=== PATIENT | female | born 1940 | race Caucasian/White ===

== ENCOUNTER 2021-01-07 10:39 | Inpatient (IN) | payer MEDICARE, OTHER, SELFPAY ==
[2021-01-07] VITALS (10 sets, daily range): BP systolic 140–219; BP diastolic 58–98; PULSE 76–87; RESP 13–19; TEMP 36.2–37.2; O2SAT 94–99; BMI 21.9
--- NOTE | ~2021-01-07 | IR_ITS ---
EXAMINATION: FLUOROSCOPY-GUIDED BIPEDICLE APPROACH T12 AND L2 KYPHOPLASTY CLINICAL INFORMATION: Acute back pain with loss of mobility and recumbent in the bed. Previous CT revealed L2 compression fracture. Present kyphoplasty CT revealed additional T12 acute fracture. COMPARISON: CT abdomen and pelvis exam 01/07/2021 TECHNIQUE: Following explaining fluoroscopy-guided T12 and L2 kyphoplasty procedure, benefits and risks, written consent was obtained from the patient. Patient was placed prone on fluoroscopy table and low back area was cleaned and draped in usual sterile manner. IV 2 g Kefzol was given intravenously. Patient was placed prone on fluoroscopy table and low back area was cleaned and draped in usual sterile manner. Right T12 pedicle was localized on the skin and 1% lidocaine was infiltrated. A 22-gauge spinal needle was inserted from the skin to the level of right pedicle and 0.25% Sensorcaine was injected. Through a small skin incision a 10-gauge Kyphon needle was inserted from the skin incision to the level of right pedicle and through the pedicle into posterior one-third of T12 vertebra. A second needle was advanced at a similar fashion through the left pedicle into the posterior one-third of T12 vertebra. A third and fourth needle was inserted through the right and left pedicles of L2 vertebra. A simple drill was advanced through the right and left pedicles of T12 vertebra and a tract created. A curette was then advanced through the right followed by left pedicle into the L2 vertebra and hard sclerotic bone was sliced. Subsequently high tensile balloons inserted through both needles at T12 and L2 vertebra and inflated to 150-200 psi for 5 minutes. These balloons were deflated initially at T12 vertebra and premixed polymethyl methacrylate was injected through the right and left pedicles under continuous AP and oblique fluoroscopy monitoring. Subsequently the L2 balloons were deflated and freshly prepared polymethyl methacrylate was injected through the right and left pedicles. After achieving adequate amount of cement in these 2 vertebrae, both needles were withdrawn and complete hemostasis achieved at puncture site. Sterile dressing applied postprocedure. Patient tolerated the procedure extremely well. IV conscious sedation was administered with Versed and fentanyl and patient monitored by the radiologist and IR nurse for 1 hour. FLUOROSCOPY TIME: 21.7 minutes. DOSE AREA PRODUCT: 964 mGy. FINDINGS: On preliminary imaging there is significant loss of T12 vertebral height approximately 50%. There is mild loss of T12 vertebral height. There is adequate amount of cement seen occupying the T12 and L2 vertebra. No extravasation of cement seen at this time. IR/IR kyphoplasty thoracic IMPRESSION: Successful fluoroscopy-guided bipedicle approach T12 and L2 kyphoplasty performed without immediate complications.
--- NOTE | ~2021-01-07 | CT_ITS ---
EXAMINATION: CT CHEST, ABDOMEN AND PELVIS WITHOUT CONTRAST. CLINICAL INFORMATION: Severe rib pain. COMPARISON: None TECHNIQUE: 5 mm thin axial and reformatted 3 mm thin sagittal and coronal images of chest, abdomen pelvis were obtained without contrast. DLP [id number] FINDINGS: CHEST: There is centrilobular emphysematous changes of both lungs with atelectatic changes in the right upper and lower lobes. Minimal atelectasis in the left lung base as well. There are small bilateral pleural effusions. The heart size is borderline normal. There is a small pericardial effusion seen. There is no mediastinal mass or lymphadenopathy. There are coronary artery calcifications. The central trachea and the bronchi widely patent. No abnormal axillary lymph nodes seen. There is dense soft tissue in the left breast on axial image 37/5. There is no thoracic spine fractures seen. There is mild degenerative changes and spondylosis mid dorsal spine. There is no visible rib fracture. ABDOMEN AND PELVIS: The liver is normal size, shape and density. No focal lesion or intrahepatic ductal dilatation seen. There are no radiopaque gallstones or wall thickening. Visualized spleen, atrophic pancreas and bilateral adrenal glands are unremarkable. There is atherosclerotic calcification of abdominal aorta and its branches but no aneurysm seen. There are no retroperitoneal lymph nodes or mass seen. Both kidneys are normal size and shape. There is 7 mm fatty hypodensity lower pole right kidney likely angiomyolipoma. There is a large amount of stool and gas seen throughout the colon likely severe constipation. Very little stool and gas is seen in the sigmoid colon and the rectum. A obstruction, spasm, stricture or lesion at the junction of descending and sigmoid colon cannot be excluded based on this exam. The small bowel loops are normal caliber. No free air or air-fluid levels seen. Appendix is not visualized. The cecum lies in the mid pelvis. There are scattered phleboliths in the pelvis. The bladder is mildly distended and shifted to the right of pelvis with calcifications likely vascular seen in the cervix the uterus is atrophied or surgically removed and not visualized. There is no free fluid in the pelvis. Bone windows reveal severe degenerative changes throughout lumbar spine. There is L2 compression fracture, likely acute with a small posterior bony component projecting into the anterior epidural space. Mild inferior endplate deformity is seen involving T12 vertebra. CT/CT abdomen pelvis wo con IMPRESSION: Bilateral small pleural effusions. Small pericardial effusion. There is atelectatic changes in the right upper lobe and right lower lobe and left lung base. Significant constipation with distended colon with stool and gas with a history of normal segment at the junction of descending sigmoid colon and the left abdomen. There is no visible mass however stricture, spasm or lesion cannot be excluded. Recommend a long rectal tube placement. There is no free fluid or free air seen. 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
--- NOTE | ~2021-01-07 | CT_ITS ---
EXAMINATION: CT LUMBAR SPINE CLINICAL INFORMATION: Post T12 and L2 kyphoplasty. COMPARISON: CT lumbar spine performed earlier today prior to kyphoplasty. TECHNIQUE: 2 mm thin axial and reformatted 2 mm thin sagittal and coronal images of lumbar spine were obtained without contrast. This CT examination was performed using dose optimization techniques as appropriate, variously including the following: *Automated exposure control *Adjustment of mA and/or kV according to patient size (this includes techniques or standardized protocols for targeted exams where dose is matched to indication/reason for exam; i.e. extremities or head) *Use of iterative reconstruction technique DLP: 289 mGy-cm FINDINGS: On sagittal reconstructed images there is adequate cement occupying the T12 compression fracture and L2 vertebra with moderate loss of vertebral height. No extravasation of cement seen at this time. Visualized L1, L4 vertebral heights are preserved. There is mild superior endplate deformity with sclerosis L3-L4 vertebra similar to previous study. No underlying disc bulge, herniation or spinal stenosis seen. There are bilateral small pleural effusions with underlying left lower lobe consolidation and right lower lobe atelectasis. CT/CT lumbar spine post vert IMPRESSION: Adequate amount of cement occupying the T12 and L2 compression fractures post kyphoplasty. There is no cement extravasation seen. Incidental bilateral small pleural effusions with left lower lobe consolidation and right lower lobe atelectasis/scarring. Results were conveyed by phone to Dr. Hubbard.
--- NOTE | ~2021-01-07 | CT_ITS ---
EXAMINATION: CT LUMBAR SPINE WITHOUT CONTRAST CLINICAL INFORMATION: Acute fracture L2 vertebra. COMPARISON: CT abdomen and pelvis 01/07/2021 TECHNIQUE: 2 mm thin axial and reformatted 2 mm thin sagittal and coronal images of thoracolumbar spine were obtained from inferior endplate of T11 through mid L4 vertebrae. This CT examination was performed using dose optimization techniques as appropriate, variously including the following: *Automated exposure control *Adjustment of mA and/or kV according to patient size (this includes techniques or standardized protocols for targeted exams where dose is matched to indication/reason for exam; i.e. extremities or head) *Use of iterative reconstruction technique DLP; 234 mGy-cm FINDINGS: On sagittal reconstructed images of thoracolumbar spine, there is interval mild compression deformity of T12 vertebra with posterior protrusion of bony project centrally into the anterior epidural space. There is lucency along upper thoracic vertebrae. The inferior endplate is deformed. The superior endplate is preserved. Also visualized is a known L2 compression fracture with approximately 50% loss of vertebral height with moderate size posterior bony component projecting into the anterior epidural space but no spinal canal stenosis seen. There are superior endplate changes along the L3 and L4 vertebrae. There are degenerative disc changes with vacuum disc phenomena L2-L3 and L3-L4 disc levels. There is moderate ventral spondylosis. No lytic process seen. There is minimal disc bulge at the L3-L4 disc level. The rest of the disc levels are unremarkable. The paravertebral soft tissues are normal. CT/CT lumbar spine wo con IMPRESSION: Known acute L2 compression fracture with approximately 50% loss of vertebral height. There is interval new compression fracture T11 vertebra with posterior bony component.
[2021-01-07 11:26] LABS: MANUAL DIFF FLAG NO
[2021-01-07 11:30] LABS: Basophils Percent Auto 0.3 % (0-2); Eosinophils Absolute Auto 0.2 X10*3/uL (0.0-0.4); Eosinophils Percent Auto 2.7 % (0-4); Hematocrit 29.6 % (37-47); Hemoglobin 9.6 g/dl (12.0-16.0); Imm Gran Abs Auto 0.03 X10*3/uL (0.00-0.03); Imm Gran Pct Auto 0.5 % (0.0-0.4); Lymphocytes Absolute Auto 0.8 X10*3/uL (1.2-4.9); Lymphocytes Percent Auto 12.3 % (20-40); Mean Corpuscular HGB Conc 32.4 g/dl (31.0-35.0); Mean Corpuscular Hemoglobin 27.9 pg (27.0-33.0); Mean Platelet Volume 8.3 fL (9.4-12.3); Monocytes Percent Auto 15.9 % (2-11); Neutrophils Absolute Auto 4.3 X10*3/uL (2.0-8.3); Neutrophils Percent Auto 68.3 % (45-73); Platelet Count 383 X10*3/uL (160-400); Red Blood Count 3.44 X10*6/uL (4.20-5.50); Red Cell Distribution Width 12.7 % (11.0-16.0); White Blood Count 6.2 X10*3/uL (4.8-10.8)
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
[2021-01-07] MEDS: Acetaminophen 325 MG TABLET 975 MG PO (11:45)
[2021-01-07] MEDS: traMADoL HCL 50 MG TABLET 25 MG PO (11:45)
[2021-01-07 12:01] LABS: COVID-19 Test Negative (Negative)
[2021-01-07 12:01] LABS: Anion Gap 14 (12-20); Blood Urea Nitrogen 16 mg/dL (9-16); Calcium 8.5 mg/dL (8.4-10.2); Carbon Dioxide 29 mmol/L (22-29); Chloride 88 mmol/L (96-108); Creatinine Clr Calc Pharmacy 41.7; Estimated Glomerular Filt Rate 59; Glucose Random 233 mg/dL (60-115); Potassium 5.6 mmol/L (3.3-5.1); Sodium 125 mmol/L (135-145)
--- NOTE | 2021-01-07 12:04 | PC.NURSE ---
Dary, boyfriend, cellphone [phone]
--- NOTE | 2021-01-07 13:09 | ECG_ITS ---
Test Reason : WEAKNESS Blood Pressure : / mmHG Vent. Rate : 081 BPM Atrial Rate : 081 BPM P-R Int : 194 ms QRS Dur : 074 ms QT Int : 378 ms P-R-T Axes : 065 070 028 degrees QTc Int : 439 ms Normal sinus rhythm Nonspecific ST abnormality Abnormal ECG When compared with ECG of 09-APR-2013 16:46, T wave amplitude has increased in Anterior leads Referred By: Dorita Salgado Electronically Signed By:OSBALDO ELDRIDGE
[2021-01-07] MEDS: Sodium Phosphate,Mono-Dibasic 133 ML ENEMA PR (13:16)
[2021-01-07] MEDS: 0.9 % Sodium Chloride 500 ML IV (13:17)
[2021-01-07] MEDS: fentaNYL citrate/PF 100 MCG/2 ML VIAL 25 MCG IVPUSH (13:27)
[2021-01-07 14:02] LABS: Glucose, Whole Blood 179 mg/dL (60-115)
[2021-01-07 15:57] LABS: Sodium 126 mmol/L (135-145)
[2021-01-07] MEDS: fentaNYL citrate/PF 100 MCG/2 ML VIAL 50 MCG IVPUSH (16:07)
[2021-01-07 16:29] LABS: Glucose, Whole Blood 173 mg/dL (60-115)
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
[2021-01-07] MEDS: Magnesium Hydrox/Alum Hydrox 30 ML ORAL.SUSP PO (17:14)
[2021-01-07] MEDS: Enoxaparin Sodium 40 MG/0.4 ML SYRINGE SUBCUT (17:14)
[2021-01-07] MEDS: Sodium Polystyrene Sulfon/Sorb 15 GM/60 ML ORAL.SUSP 30 GM PO (17:15)
[2021-01-07] MEDS: 0.9 % Sodium Chloride 1,000 ML 80 ML IVCONT (17:16)
[2021-01-07 19:26] LABS: Glucose Urine UA 100 MG/DL (NEG); Leukocyte Esterase Urine 3+ (NEG); Nitrite Urine NEG (NEG); Specific Gravity - Urine 1.015 (1.005-1.025); UACC Culture Trigger YES; Urine Blood 2+ (NEG); Urine Ketones NEG (NEG); Urine Protein TRACE MG/DL (NEG-TRACE)
[2021-01-07 19:29] LABS: Osmolality Urine 325 mosm/kg (373-1093)
[2021-01-07 19:31] LABS: Appearance Urine CLOUDY; Color Urine YELLOW
[2021-01-07 19:46] LABS: Bacteria Urine 3+ /LPF; Renal Epithelial Cells Urine TRACE /LPF; Squamous Epithelial Cell Urine TRACE /LPF; WBC Urine TNTC /HPF (0-4)
[2021-01-07] MEDS: Docusate Sodium 100 MG CAPSULE PO (21:43)
[2021-01-07] MEDS: Sennosides 8.6 MG TABLET 17.2 MG PO (21:43)
[2021-01-07] MEDS: ALPRAZolam 0.5 MG TABLET PO (21:44)
[2021-01-07] MEDS: Mirtazapine 7.5 MG TABLET PO (21:44)
[2021-01-07] MEDS: carvediloL 3.125 MG TABLET PO (21:44)
[2021-01-07 22:10] LABS: Glucose, Whole Blood 188 mg/dL (60-115)
[2021-01-07] MEDS: traMADoL HCL 50 MG TABLET PO (22:37)
[2021-01-07] MEDS: Latanoprost 0.005 % Ophth Sol 2.5 ML DROPS 1 DROP EYE-RIGHT (22:38)
[2021-01-07] MEDS: Artificial Tears 15 ML DROPS 2 DROP EYE-BOTH (22:38)
[2021-01-08] VITALS (10 sets, daily range): BP systolic 107–191; BP diastolic 59–92; PULSE 78–97; RESP 16–18; TEMP 36.3–36.6; O2SAT 92–99; BMI 21.9
[2021-01-08 03:46] LABS: Glucose, Whole Blood 202 mg/dL (60-115)
[2021-01-08] MEDS: Morphine Sulfate 4 MG/ML CARTRIDGE 2 MG IVPUSH (04:03)
[2021-01-08] MEDS: 0.9 % Sodium Chloride 1,000 ML 80 ML IVCONT (06:12)
[2021-01-08 06:37] LABS: INTERNATIONAL NORM RATIO 1.2 (0.9-1.1); Prothrombin Time 13.7 SEC (10.8-13.0)
[2021-01-08 06:38] LABS: Hematocrit 27.4 % (37-47); Hemoglobin 9.1 g/dl (12.0-16.0); Mean Corpuscular HGB Conc 33.2 g/dl (31.0-35.0); Mean Corpuscular Hemoglobin 28.5 pg (27.0-33.0); Mean Corpuscular Volume 85.9 fL (80-98); Mean Platelet Volume 8.6 fL (9.4-12.3); Platelet Count 365 X10*3/uL (160-400); Red Blood Count 3.19 X10*6/uL (4.20-5.50); Red Cell Distribution Width 12.5 % (11.0-16.0); White Blood Count 6.3 X10*3/uL (4.8-10.8)
[2021-01-08 06:40] LABS: Anion Gap 13 (12-20); Blood Urea Nitrogen 11 mg/dL (9-16); Carbon Dioxide 27 mmol/L (22-29); Chloride 91 mmol/L (96-108); Creatinine Clr Calc Pharmacy 52.5; Estimated Glomerular Filt Rate > 60; Glucose Random 217 mg/dL (60-115); Potassium 4.2 mmol/L (3.3-5.1); Sodium 127 mmol/L (135-145)
[2021-01-08 08:00] LABS: Glucose, Whole Blood 222 mg/dL (60-115)
[2021-01-08] MEDS: Docusate Sodium 100 MG CAPSULE PO ×2 (08:10→20:28)
[2021-01-08] MEDS: busPIRone HCl 5 MG TABLET PO ×2 (08:11→17:02)
[2021-01-08] MEDS: ALPRAZolam 0.5 MG TABLET PO ×3 (08:11→20:28)
[2021-01-08] MEDS: Losartan Potassium 50 MG TABLET 100 MG PO (08:12)
[2021-01-08] MEDS: Insulin Lispro 100 UNIT/ML 3 ML VIAL SUBCUT ×4 (08:12→20:27)
[2021-01-08] MEDS: carvediloL 3.125 MG TABLET PO ×2 (08:13→20:28)
[2021-01-08] MEDS: Insulin Glargine,Hum.rec.anlog 100 UNIT/ML 10 ML VIAL 7 UNIT SUBCUT (08:14)
[2021-01-08] MEDS: traMADoL HCL 50 MG TABLET PO ×2 (08:14→17:01)
[2021-01-08 09:44] LABS: Thyroid Stimulating Hormone 0.99 uIU/mL (0.32-4.0)
--- NOTE | 2021-01-08 10:52 | MHC.CM.PN ---
PATIENT LIVES WITH HER SIGNIFICANT OTHER, OLGA SHE HAS A WALKER, BUT FEELS IT IS TOO SMALL FOR HER NEEDS. PATIENT IS ACITVE WITH [employer], WHO IS OFFERING SUN GALSSES, TALKING CLOCK, TIMER, AUDIO TAPES, LARGE PRINT HOME PHONE, A NEW CANE AND WALKER. DUE TO COVID RESTRICTIONS, SOME OF THESE ITEMS HAVE NOT YET ARRIVED PATIENT ALSO HAS OPTHAMOLOGY APPOINTMENTS Q6W WITH [facility]. IMM DISCUSSED AND VERBAL COMPREHENSION RECEIVED. PATIENT ASKS THAT THIS HOSTESS HOST SIGN ON HER BEHALF. CONTACT CARD LEFT WITH IMM. 01/08 IMM IN CHART.
[2021-01-08 11:22] LABS: Glucose, Whole Blood 189 mg/dL (60-115)
[2021-01-08] MEDS: ALPRAZolam 0.25 MG TABLET PO (11:39)
[2021-01-08] MEDS: cefTRIAXone sodium 1 GM in 0.9 % Sodium Chloride 50 ML IV (11:40)
--- NOTE | 2021-01-08 13:32 | P.PNIM_ITS ---
Subjective Subjective Date of Service: 01/08/21 Interval History: the patient was seen and evaluated this morning Laying in bed, feels better than yesterday but still complaining of back pain requiring IV morphine Denies any fever, chills or shortness of breath No reported other overnight events. Systemic review: No fever, chills or weakness No chest pain, palpitation No shortness of breath or coughing No abdominal pain, nausea or vomiting No urinary symptoms No any rash or wounds Physical Exam Vital Signs: Vital Signs: Last Vital Signs Temp 97.3 F 01/08/21 11:28 Pulse 78 01/08/21 11:28 Resp 16 01/08/21 11:28 BP 141/59 H 01/08/21 11:28 Pulse Ox 94 01/08/21 11:28 Body Mass Index 21.9 Const: Other: Constitutional : Alert, oriented, in mild distress from pain and constipation Neck : Normal inspection, Supple Cardiovascular : RRR, S1 S2, no lower extremity edema Respiratory : Good bilateral air entry, no crackles, wheezes or rhonchi Gastrointestinal: soft, lax, Normal bowel sounds, mild generalized tenderness but no surgical signs Skin : Warm/Dry, left lower extremity heel dry ulcer with no drainage noted Neurological : Alert & oriented x3, No focal deficit Objective Data Current Medications Generic Name Dose Route Start Last Admin Trade Name Freq PRN Reason Stop Dose Admin Acetaminophen 650 mg 01/07/21 16:46 Acetaminophen 325 Mg Tablet PO Q6H PRN Pain (Scale Score 1-3) Acetaminophen 650 mg 01/07/21 16:46 Acetaminophen Supp 650 Mg Supp.Rect ME Q6H PRN Pain, Mild (Pain Scale 1-3) Alprazolam 0.25 mg 01/08/21 12:00 01/08/21 11:39 Alprazolam 0.25 Mg Tablet PO 0.25 mg DAILY@1200 NELIDA Administration Alprazolam 0.5 mg 01/07/21 17:00 01/08/21 08:11 Alprazolam 0.5 Mg Tablet PO 0.5 mg TID@0900,1700,2100 NELIDA Administration Artificial Tears 2 drop 01/07/21 16:46 01/07/21 22:38 Artificial Tears 15 Ml Drops EYE-BOTH 2 drop Q4H PRN Administration Dry Eyes Buspirone HCl 5 mg 01/07/21 17:00 01/08/21 08:11 Buspirone Hcl 5 Mg Tablet PO 5 mg BID@0900,1700 NELIDA Administration Carvedilol 3.125 mg 01/07/21 21:00 01/08/21 08:13 Carvedilol 3.125 Mg Tablet PO 3.125 mg BID NELIDA Administration Protocol Docusate Sodium 100 mg 01/07/21 21:00 01/08/21 08:10 Docusate Sodium 100 Mg Capsule PO 100 mg BID NELIDA Administration Ceftriaxone Sodium 1 gm/ 50 mls @ 100 mls/hr 01/08/21 12:00 01/08/21 12:12 Sodium Chloride IV Infused Q24H NELIDA Infusion Insulin Glargine 7 unit 01/08/21 09:00 01/08/21 08:14 Insulin Glargine,Hum.Rec.Anlog 100 Unit/Ml 10 Ml Vial SUBCUT 7 unit DAILY NELIDA Administration Insulin Human Lispro 0 unit 01/07/21 16:46 01/08/21 11:39 Insulin Lispro 100 Unit/Ml 3 Ml Vial SUBCUT 2 unit QIDACHS [facility] Administration Protocol Latanoprost 1 drop 01/07/21 21:00 01/07/21 22:38 Latanoprost 0.005 % Ophth Vilma 2.5 Ml Drops EYE-RIGHT 1 drop BEDTIME NELIDA Administration Losartan Potassium 100 mg 01/08/21 09:00 01/08/21 08:12 Losartan Potassium 50 Mg Tablet PO 100 mg DAILY NELIDA Administration Protocol Mirtazapine 7.5 mg 01/07/21 21:00 01/07/21 21:44 Mirtazapine 7.5 Mg Tablet PO 7.5 mg BEDTIME NELIDA Administration Morphine Sulfate 2 mg 01/07/21 16:34 01/08/21 04:03 Morphine Sulfate 4 Mg/Ml Cartridge IVPUSH 2 mg Q4H PRN Administration Pain, Severe (Pain Scale 7-10) Ondansetron HCl 4 mg 01/07/21 16:46 Ondansetron Hcl 4 Mg/2 Ml Vial IVPUSH Q8H PRN Nausea and Vomiting Pharmacy Consult 1 each 01/07/21 12:43 Consult Rx Perform Med Rec MISCELLANE ONCE PRN Consult order Senna 17.2 mg 01/07/21 21:00 01/07/21 21:43 Sennosides 8.6 Mg Tablet PO 17.2 mg BEDTIME NELIDA Administration Sodium Chloride 3 ml 01/08/21 00:00 01/08/21 07:12 0.9 % Sodium Chloride Flush 3 Ml Syringe IVFLUSH Not Given QSHIFT NELIDA Tramadol HCl 50 mg 01/07/21 16:46 01/08/21 08:14 Tramadol Hcl 50 Mg Tablet PO 50 mg Q8H PRN Administration Pain (Scale Score 4-6) Labs CBC & Chem 7: 01/08/21 05:59 01/08/21 05:58 Microbiology Microbiology Results: Microbiology 01/07/21 19:07 Urine clean catch - Clean Catch Midstream Urine Culture - Preliminary Gram negative olman Assessment and Plan (1) Compression fracture of L2: Status: Acute (2) Constipation: Status: Acute (3) Hyponatremia: Status: Acute (4) Hyperkalemia: Status: Acute (5) Diabetic foot ulcer: Status: Acute Assessment and Plan: A 80 years old lady with PMH of HTN, type 1 diabetes, glaucoma, macular degeneration, osteoporosis among others who presented to the hospital with worsening back and abdominal pain. L2 compression fracture Pain management secondary to osteoporosis CT scan showing finding as she reported Pain management Plan for kyphoplasty by IR tomorrow Hyponatremia Sodium of 127 Likely secondary to medications, decreased oral intake, possible SIADH urine electrolytes showing elevated sodium suggestive of possible SIADH DC IV fluids Water restriction Goal 134 by tomorrow Monitor BMP Hyperkalemia Resolved Diabetic foot ulcer Seems stable with no drainage Will need local care at discharge Constipation Secondary decreased activity and pain medications Continue GI regimen with MiraLax, Colace and senna Type 1 diabetes continue Lantus SSI DVT PPX Lovenox
[2021-01-08 16:48] LABS: Glucose, Whole Blood 291 mg/dL (60-115)
[2021-01-08] MEDS: 0.9 % Sodium Chloride Flush 3 ML SYRINGE IVFLUSH ×2 (17:00→20:29)
[2021-01-08] MEDS: amLODIPine Besylate 5 MG TABLET PO (17:01)
[2021-01-08 20:24] LABS: Glucose, Whole Blood 273 mg/dL (60-115)
[2021-01-08] MEDS: Mirtazapine 7.5 MG TABLET PO (20:28)
[2021-01-08] MEDS: Sennosides 8.6 MG TABLET 17.2 MG PO (20:28)
[2021-01-08] MEDS: Latanoprost 0.005 % Ophth Sol 2.5 ML DROPS 1 DROP EYE-RIGHT (21:28)
[2021-01-08] MEDS: Artificial Tears 15 ML DROPS 2 DROP EYE-BOTH (21:29)
[2021-01-09] VITALS (8 sets, daily range): BP systolic 120–189; BP diastolic 48–89; PULSE 86–98; RESP 16–18; TEMP 35.8–36.9; O2SAT 87–97
[2021-01-09 02:58] LABS: Glucose, Whole Blood 207 mg/dL (60-115)
[2021-01-09] MEDS: traMADoL HCL 50 MG TABLET PO ×2 (05:00→22:59)
[2021-01-09 07:08] LABS: Anion Gap 15 (12-20); Blood Urea Nitrogen 17 mg/dL (9-16); Carbon Dioxide 26 mmol/L (22-29); Chloride 89 mmol/L (96-108); Creatinine Clr Calc Pharmacy 45.6; Estimated Glomerular Filt Rate > 60; Glucose Random 264 mg/dL (60-115); Potassium 4.4 mmol/L (3.3-5.1); Sodium 126 mmol/L (135-145)
[2021-01-09 07:45] LABS: Glucose, Whole Blood 260 mg/dL (60-115)
[2021-01-09] MEDS: busPIRone HCl 5 MG TABLET PO ×2 (09:08→16:43)
[2021-01-09] MEDS: ALPRAZolam 0.5 MG TABLET PO ×3 (09:08→21:23)
[2021-01-09] MEDS: amLODIPine Besylate 5 MG TABLET 2.5 MG PO (09:08)
[2021-01-09] MEDS: carvediloL 3.125 MG TABLET PO ×2 (09:08→21:24)
[2021-01-09] MEDS: Losartan Potassium 50 MG TABLET 100 MG PO (09:09)
[2021-01-09] MEDS: 0.9 % Sodium Chloride Flush 3 ML SYRINGE IVFLUSH ×2 (09:09→16:48)
[2021-01-09 09:45] LABS: Anion Gap 17 (12-20); Blood Urea Nitrogen 16 mg/dL (9-16); Calcium 7.9 mg/dL (8.4-10.2); Carbon Dioxide 26 mmol/L (22-29); Chloride 89 mmol/L (96-108); Creatinine Clr Calc Pharmacy 45.6; Estimated Glomerular Filt Rate > 60; Glucose Random 296 mg/dL (60-115); Potassium 4.4 mmol/L (3.3-5.1); Sodium 128 mmol/L (135-145)
--- NOTE | 2021-01-09 09:53 | P.PNIM_ITS ---
Subjective Subjective Date of Service: 01/09/21 Interval History: the patient was seen and evaluated this morning Laying in bed, feels better overall, mildly confused, refusing the Kyphoplasty Denies any fever, chills or shortness of breath No reported other overnight events. Systemic review: No fever, chills or weakness No chest pain, palpitation No shortness of breath or coughing No abdominal pain, nausea or vomiting No urinary symptoms No any rash or wounds Physical Exam Vital Signs: Vital Signs: Last Vital Signs Temp 96.7 F L 01/09/21 08:26 Pulse 88 01/09/21 08:26 Resp 16 01/09/21 07:50 BP 183/89 H 01/09/21 08:26 Pulse Ox 87 L 01/09/21 08:26 Body Mass Index 21.9 Const: Other: Constitutional : Alert, oriented to self but otherwise confused, anxious, in mild distress from the procedure Neck : Normal inspection, Supple Cardiovascular : RRR, S1 S2, no lower extremity edema Respiratory : Good bilateral air entry, no crackles, wheezes or rhonchi Gastrointestinal: soft, lax, Normal bowel sounds, mild generalized tenderness but no surgical signs Skin : Warm/Dry, left lower extremity heel dry ulcer with no drainage noted Neurological : Alert & oriented to self, No focal deficit Objective Data Current Medications Generic Name Dose Route Start Last Admin Trade Name Freq PRN Reason Stop Dose Admin Acetaminophen 650 mg 01/07/21 16:46 Acetaminophen 325 Mg Tablet PO Q6H PRN Pain (Scale Score 1-3) Acetaminophen 650 mg 01/07/21 16:46 Acetaminophen Supp 650 Mg Supp.Rect CA Q6H PRN Pain, Mild (Pain Scale 1-3) Alprazolam 0.25 mg 01/08/21 12:00 01/08/21 11:39 Alprazolam 0.25 Mg Tablet PO 0.25 mg DAILY@1200 NELIDA Administration Alprazolam 0.5 mg 01/07/21 17:00 01/09/21 09:08 Alprazolam 0.5 Mg Tablet PO 0.5 mg TID@0900,1700,2100 NELIDA Administration Amlodipine Besylate 2.5 mg 01/09/21 09:00 01/09/21 09:08 Amlodipine Besylate 5 Mg Tablet PO 2.5 mg DAILY NELIDA Administration Protocol Artificial Tears 2 drop 01/07/21 16:46 01/08/21 21:29 Artificial Tears 15 Ml Drops EYE-BOTH 2 drop Q4H PRN Administration Dry Eyes Buspirone HCl 5 mg 01/07/21 17:00 01/09/21 09:08 Buspirone Hcl 5 Mg Tablet PO 5 mg BID@0900,1700 [facility] Administration Carvedilol 3.125 mg 01/07/21 21:00 01/09/21 09:08 Carvedilol 3.125 Mg Tablet PO 3.125 mg BID [facility] Administration Protocol Docusate Sodium 100 mg 01/07/21 21:00 01/09/21 09:09 Docusate Sodium 100 Mg Capsule PO Not Given BID [facility] Ceftriaxone Sodium 1 gm/ 50 mls @ 100 mls/hr 01/08/21 12:00 01/08/21 12:12 Sodium Chloride IV Infused Q24H [facility] Infusion Insulin Glargine 7 unit 01/08/21 09:00 01/09/21 09:09 Insulin Glargine,Hum.Rec.Anlog 100 Unit/Ml 10 Ml Vial SUBCUT Not Given DAILY [facility] Insulin Human Lispro 0 unit 01/07/21 16:46 01/09/21 09:09 Insulin Lispro 100 Unit/Ml 3 Ml Vial SUBCUT Not Given QIDACHS [facility] Protocol Latanoprost 1 drop 01/07/21 21:00 01/08/21 21:28 Latanoprost 0.005 % Ophth Vilma 2.5 Ml Drops EYE-RIGHT 1 drop BEDTIME [facility] Administration Losartan Potassium 100 mg 01/08/21 09:00 01/09/21 09:09 Losartan Potassium 50 Mg Tablet PO 100 mg DAILY [facility] Administration Protocol Mirtazapine 7.5 mg 01/07/21 21:00 01/08/21 20:28 Mirtazapine 7.5 Mg Tablet PO 7.5 mg BEDTIME [facility] Administration Morphine Sulfate 2 mg 01/07/21 16:34 01/08/21 04:03 Morphine Sulfate 4 Mg/Ml Cartridge IVPUSH 2 mg Q4H PRN Administration Pain, Severe (Pain Scale 7-10) Ondansetron HCl 4 mg 01/07/21 16:46 Ondansetron Hcl 4 Mg/2 Ml Vial IVPUSH Q8H PRN Nausea and Vomiting Pharmacy Consult 1 each 01/07/21 12:43 Consult Rx Perform Med Rec MISCELLANE ONCE PRN Consult order Senna 17.2 mg 01/07/21 21:00 01/08/21 20:28 Sennosides 8.6 Mg Tablet PO 17.2 mg BEDTIME NELIDA Administration Sodium Chloride 3 ml 01/08/21 00:00 01/09/21 09:09 0.9 % Sodium Chloride Flush 3 Ml Syringe IVFLUSH 3 ml QSHIFT NELIDA Administration Tramadol HCl 50 mg 01/07/21 16:46 01/09/21 05:00 Tramadol Hcl 50 Mg Tablet PO 50 mg Q8H PRN Administration Pain (Scale Score 4-6) Labs CBC & Chem 7: 01/08/21 05:59 01/09/21 08:53 Microbiology Microbiology Results: Microbiology 01/07/21 19:07 Urine clean catch - Clean Catch Midstream Urine Culture - Final Escherichia coli Assessment and Plan (1) Compression fracture of L2: Status: Acute (2) Constipation: Status: Acute (3) Hyponatremia: Status: Acute (4) Hyperkalemia: Status: Acute (5) Diabetic foot ulcer: Status: Acute Assessment and Plan: A 80 years old lady with PMH of HTN, type 1 diabetes, glaucoma, macular degeneration, osteoporosis among others who presented to the hospital with worsening back and abdominal pain. L2 compression fracture Pain management secondary to osteoporosis CT sc you were an showing finding of L2 compression fracture Pain management; DC morphine, to use Oxycodone as needed Patient this morning declined kyphoplasty, to rediscuss with her and the family the and maybe planned for Tuesday otherwise can be discharged with home therapy and pain medications Hyponatremia Sodium of 128 urine electrolytes showing elevated sodium suggestive of possible SIADH Water restriction To give a dose of urea today Monitor BMP Toxic Metabolic encephalopathy Likely secondary to hyponatremia, narcotics and hospital stay To correct electrolytes, decrease narcotics and recurrent reorientation Avoid medications that might affect her mind Hyperkalemia Resolved Diabetic foot ulcer Seems stable with no drainage Will need local care at discharge Constipation Secondary decreased activity and pain medications Continue GI regimen with MiraLax, Colace and senna Type 1 diabetes continue Lantus SSI DVT PPX Lovenox
--- NOTE | 2021-01-09 10:46 | P.CONNP_ITS ---
History of Present Illness Reason for Consult Consult date: 01/09/21 Reason for consult: Hyponatremia Requesting physician: Mignon Hubbard Chief Complaint Chief complaint: L2#, Hyponatremia History of Present Illness Narrative: 80 years old lady with PMH of HTN, type 1 diabetes, glaucoma, macular degeneration, osteoporosis among others who presented to the hospital with worsening back and abdominal pain. The patient's reported starting physical therapy almost 3 weeks ago and felt mildly better but during the next week she felt back pain after a neighbor helped her of her bed. Evaluated by her primary seems like who did an MRI showing L2 fracture. Kyphoplasty was suggested as part of treatment but she refused. Her pain did not improve over the last 2 weeks and continue to get worse . when it was associated with abdominal pain with no nausea, vomiting, diarrhea or urinary symptoms. Further evaluation found her to have hyponatremia which is worse today. Nephrology has been consulted to assist in her clinical care. Review of Systems Review of Systems Yes all other systems are reviewed and are negative PMF Past Medical History Medical History Diabetes Glaucoma Lumbar compression fracture Macular degeneration Neuropathy Osteopenia Osteoporosis Prolapsed bladder Toe amputee Social History Social History Household Members: Significant Other Housing: Condominium Do you presently have visiting nurse or other home services: No Alcohol intake: never Smoking Status: Never smoker Smoked in Last 30 Days: No Second Hand Smoke Exposure: No Use of substances other than those prescribed or required for medical reasons: No Currently Displaying Signs/Symptoms of Drug Intoxication Withdrawal: No Any prior treatment program specific to substance use: No Have you been hit, kicked, punched, or otherwise hurt by someone within the past year? If so, by whom?: No Do you feel safe in your current relationship?: Yes Is there a partner from a previous relationship who is making you feel unsafe now?: No Are you made to feel afraid or neglected: No Advance Directives: No Advance Directives Information Provided: No Advance Directives on File: No Do you have thoughts of harming others: None Do you have a plan to hurt others: No Plan Recently lost weight without trying: No service: No Current occupational status: disabled Meds Allergies Allergy/AdvReac Type Severity Reaction Status Date / Time citalopram [Celexa] Allergy Unknown Unknown Verified 01/07/21 11:05 codeine [Codeine] Allergy Unknown ABLE TO Verified 01/07/21 16:26 TAKE IN VERY SMALL AMOUNTS, DIZZY WITH LARGE AMTS doxycycline Allergy Unknown Unknown Verified 01/07/21 11:05 Codeine Allergy Unknown Unknown Uncoded 01/07/21 11:05 Codeine Phosphate Allergy Unknown Unknown Uncoded 01/07/21 11:05 Doxycycline Hyclate Allergy Unknown Unknown Uncoded 01/07/21 11:05 novolin n Allergy Unknown Unknown Uncoded 01/07/21 11:05 Active Medications: Current Medications Generic Name Dose Route Start Last Admin Trade Name Freq PRN Reason Stop Dose Admin Acetaminophen 650 mg 01/07/21 16:46 Acetaminophen 325 Mg Tablet PO Q6H PRN Pain (Scale Score 1-3) Acetaminophen 650 mg 01/07/21 16:46 Acetaminophen Supp 650 Mg Supp.Rect MO Q6H PRN Pain, Mild (Pain Scale 1-3) Acetaminophen 650 mg 01/09/21 10:40 Acetaminophen 325 Mg Tablet PO QSHIFT [facility] Alprazolam 0.25 mg 01/08/21 12:00 01/08/21 11:39 Alprazolam 0.25 Mg Tablet PO 0.25 mg DAILY@1200 [facility] Administration Alprazolam 0.5 mg 01/07/21 17:00 01/09/21 09:08 Alprazolam 0.5 Mg Tablet PO 0.5 mg TID@0900,1700,2100 [facility] Administration Amlodipine Besylate 2.5 mg 01/09/21 09:00 01/09/21 09:08 Amlodipine Besylate 5 Mg Tablet PO 2.5 mg DAILY [facility] Administration Protocol Artificial Tears 2 drop 01/07/21 16:46 01/08/21 21:29 Artificial Tears 15 Ml Drops EYE-BOTH 2 drop Q4H PRN Administration Dry Eyes Buspirone HCl 5 mg 01/07/21 17:00 01/09/21 09:08 Buspirone Hcl 5 Mg Tablet PO 5 mg BID@0900,1700 [facility] Administration Carvedilol 3.125 mg 01/07/21 21:00 01/09/21 09:08 Carvedilol 3.125 Mg Tablet PO 3.125 mg BID [facility] Administration Protocol Docusate Sodium 100 mg 01/07/21 21:00 01/09/21 09:09 Docusate Sodium 100 Mg Capsule PO Not Given BID [facility] Ceftriaxone Sodium 1 gm/ 50 mls @ 100 mls/hr 01/08/21 12:00 01/08/21 12:12 Sodium Chloride IV Infused Q24H [facility] Infusion Insulin Glargine 7 unit 01/08/21 09:00 01/09/21 09:09 Insulin Glargine,Hum.Rec.Anlog 100 Unit/Ml 10 Ml Vial SUBCUT Not Given DAILY [facility] Insulin Human Lispro 0 unit 01/07/21 16:46 01/09/21 09:09 Insulin Lispro 100 Unit/Ml 3 Ml Vial SUBCUT Not Given QIDACHS [facility] Protocol Latanoprost 1 drop 01/07/21 21:00 01/08/21 21:28 Latanoprost 0.005 % Ophth Vilma 2.5 Ml Drops EYE-RIGHT 1 drop BEDTIME [facility] Administration Losartan Potassium 100 mg 01/08/21 09:00 01/09/21 09:09 Losartan Potassium 50 Mg Tablet PO 100 mg DAILY [facility] Administration Protocol Mirtazapine 7.5 mg 01/07/21 21:00 01/08/21 20:28 Mirtazapine 7.5 Mg Tablet PO 7.5 mg BEDTIME [facility] Administration Ondansetron HCl 4 mg 01/07/21 16:46 Ondansetron Hcl 4 Mg/2 Ml Vial IVPUSH Q8H PRN Nausea and Vomiting Oxycodone HCl 2.5 mg 01/09/21 10:38 Oxycodone Hcl Immed Release 5 Mg Tablet PO Q6H PRN Pain, Severe (Pain Scale 7-10) Pharmacy Consult 1 each 01/07/21 12:43 Consult Rx Perform Med Rec MISCELLANE ONCE PRN Consult order Senna 17.2 mg 01/07/21 21:00 01/08/21 20:28 Sennosides 8.6 Mg Tablet PO 17.2 mg BEDTIME [facility] Administration Sodium Chloride 3 ml 01/08/21 00:00 01/09/21 09:09 0.9 % Sodium Chloride Flush 3 Ml Syringe IVFLUSH 3 ml QSHIFT [facility] Administration Tramadol HCl 50 mg 01/07/21 16:46 01/09/21 05:00 Tramadol Hcl 50 Mg Tablet PO 50 mg Q8H PRN Administration Pain (Scale Score 4-6) Home Medications Medication Instructions Recorded Confirmed Last Taken Type acetaminophen 650 mg PO Q6H PRN 01/07/21 01/07/21 Unknown History alprazolam 0.25 mg PO DAILY@1200 01/07/21 01/07/21 01/06/21 History alprazolam 0.5 mg PO TID@0900,1700,2100 01/07/21 01/07/21 01/07/21 History aspirin 81 mg PO DAILY 01/07/21 01/07/21 01/07/21 History bupropion HCl 100 mg PO DAILY 01/07/21 01/07/21 01/07/21 History buspirone 5 mg PO BID@0900,1700 01/07/21 01/07/21 01/07/21 History carboxymethylcellulose sodium 1 drp OPHTHALMIC (EYE) Q4H PRN 01/07/21 01/07/21 Unknown History [Refresh Tears] carvedilol 3.125 tab PO BID@0900,1700 01/07/21 01/07/21 01/07/21 History diclofenac sodium 4 g TOPICAL QID PRN 01/07/21 01/07/21 Unknown History insulin aspart U-100 [Novolog See Protocol SUBCUT TIDAC 01/07/21 01/07/21 01/07/21 History U-100 Insulin aspart] insulin detemir U-100 [Levemir 5 unit SUBCUT BEDTIME 01/07/21 01/07/21 01/06/21 History U-100 Insulin] insulin detemir U-100 [Levemir 7 unit SUBCUT DAILY 01/07/21 01/07/21 01/07/21 History U-100 Insulin] latanoprost [Xelpros] 1 drp OPHTHALMIC-RIGHT BEDTIME 01/07/21 01/07/21 01/06/21 History losartan 100 mg PO DAILY 01/07/21 01/07/21 01/07/21 History mirtazapine 7.5 mg PO BEDTIME 01/07/21 01/07/21 01/06/21 History omega 9-bcb-hap-fish oil [Fish Oil] 1 cap PO Q2D@0900 01/07/21 01/07/21 01/07/21 History rosuvastatin 5 mg PO Q2D@0900 01/07/21 01/07/21 01/07/21 History tramadol 50 mg PO Q8H PRN 01/07/21 01/07/21 Unknown History Physical Exam Vital Signs: Last Vital Signs Temp 96.7 F L 01/09/21 08:26 Pulse 88 01/09/21 08:26 Resp 16 01/09/21 07:50 BP 183/89 H 01/09/21 08:26 Pulse Ox 87 L 01/09/21 08:26 Body Mass Index 21.9 Const General: No acute distress Eyes EOM: EOMs intact bilaterally Neck Neck: Yes supple Resp Auscultation: diminished lung sounds Cardio Jugular venous distension: no JVD GI Palpation (GI): Soft to palpation Neuro General: moves all extremities Results Lab Results Result Diagrams: 01/08/21 05:59 01/09/21 08:53 Lab results: Chemistry 01/07/21 01/07/21 01/08/21 11:21 15:26 05:58 Sodium 125 L 126 L 127 L Potassium 5.6 H 4.2 D Carbon Dioxide 29 27 BUN 16 11 Creatinine 0.92 0.73 Calcium 8.5 8.0 L 01/09/21 01/09/21 06:11 08:53 Sodium 126 L 128 L Potassium 4.4 4.4 Carbon Dioxide 26 26 BUN 17 H D 16 Creatinine 0.84 0.84 Calcium 8.0 L 7.9 L Hematology 01/07/21 01/08/21 11:21 05:59 WBC 6.2 6.3 Hgb 9.6 L 9.1 L Plt Count 383 365 Urinalysis 01/07/21 19:07 Urine Color YELLOW Urine Appearance CLOUDY Urine pH 7.0 Ur Specific [place] 1.015 Urine Protein TRACE Urine Glucose (UA) 100 H Urine Ketones NEG Urine Blood 2+ H Urine Nitrite NEG Ur Leukocyte Esterase 3+ H Urine RBC 10-14 H Urine WBC TNTC H Ur Squamous Epith Cells TRACE Urine Studies 01/07/21 19:07 Urine Osmolality 325 L Assessment and Plan (1) Hyponatremia: Problem details: Known to have hyponatremia for some time Clearly has excess ADH Sodium had been labile with fluid restriction at home It gotten worse with pain and fluids she got Currently on fluid restriction Shall give one dose of PO Urea 30 Gram today Labs AM. Shall arrange outpt follow up with me when D/Gurpreet Status: Acute
[2021-01-09 11:26] LABS: Glucose, Whole Blood 287 mg/dL (60-115)
[2021-01-09] MEDS: ALPRAZolam 0.25 MG TABLET PO (11:51)
[2021-01-09] MEDS: Urea 15 GM POWDER 30 GM PO (11:54)
[2021-01-09] MEDS: cefTRIAXone sodium 1 GM in 0.9 % Sodium Chloride 50 ML IV (11:55)
[2021-01-09] MEDS: Insulin Lispro 100 UNIT/ML 3 ML VIAL SUBCUT ×3 (11:55→20:32)
--- NOTE | 2021-01-09 12:30 | MHC.CM.PN ---
PER PHYSICIAN ROUNDS, PATIENT IS NOT WILLING TO HAVE KYPHOPLASTY PROCEDURE PLAN IS TO REMAIN AT LEAST ONE MORE DAY. IF PATIENT CHANGES HER MIND AND AGREES TO THE PROCEDURE, SHE WILL STAY THE WEEKEND AND PLAN WILL BE FOR TUESDAY PROCEDURE. CASE MANAGEMENT AVAILABLE IF NEEDED.
[2021-01-09 16:31] LABS: Glucose, Whole Blood 382 mg/dL (60-115)
[2021-01-09] MEDS: Acetaminophen 325 MG TABLET 650 MG PO (16:43)
[2021-01-09 20:08] LABS: Glucose, Whole Blood 311 mg/dL (60-115)
[2021-01-09] MEDS: Mirtazapine 7.5 MG TABLET PO (21:22)
[2021-01-09] MEDS: Sennosides 8.6 MG TABLET 17.2 MG PO (21:23)
[2021-01-09] MEDS: Artificial Tears 15 ML DROPS 2 DROP EYE-BOTH (21:31)
[2021-01-10] VITALS (8 sets, daily range): BP systolic 98–165; BP diastolic 42–70; PULSE 78–101; RESP 16–20; TEMP 35.5–36.7; O2SAT 87–96
[2021-01-10] MEDS: 0.9 % Sodium Chloride Flush 3 ML SYRINGE IVFLUSH ×4 (00:35→21:15)
[2021-01-10 07:13] LABS: Glucose, Whole Blood 111 mg/dL (60-115)
[2021-01-10 07:26] LABS: Glucose, Whole Blood 303 mg/dL (60-115)
[2021-01-10 08:00] LABS: Anion Gap 17 (12-20); Blood Urea Nitrogen 42 mg/dL (9-16); Calcium 8.4 mg/dL (8.4-10.2); Carbon Dioxide 25 mmol/L (22-29); Chloride 92 mmol/L (96-108); Creatinine Clr Calc Pharmacy 45.1; Estimated Glomerular Filt Rate > 60; Glucose Random 308 mg/dL (60-115); Potassium 4.5 mmol/L (3.3-5.1); Sodium 129 mmol/L (135-145)
[2021-01-10] MEDS: Insulin Lispro 100 UNIT/ML 3 ML VIAL SUBCUT ×4 (08:08→21:13)
[2021-01-10] MEDS: ALPRAZolam 0.5 MG TABLET PO ×3 (08:09→21:14)
[2021-01-10] MEDS: amLODIPine Besylate 5 MG TABLET 2.5 MG PO (08:10)
[2021-01-10] MEDS: busPIRone HCl 5 MG TABLET PO ×2 (08:10→17:17)
[2021-01-10] MEDS: Docusate Sodium 100 MG CAPSULE PO ×2 (08:10→21:14)
[2021-01-10] MEDS: Losartan Potassium 50 MG TABLET 100 MG PO (08:10)
[2021-01-10] MEDS: carvediloL 3.125 MG TABLET PO ×2 (08:11→21:14)
[2021-01-10] MEDS: traMADoL HCL 50 MG TABLET PO ×2 (08:16→17:17)
[2021-01-10] MEDS: Insulin Glargine,Hum.rec.anlog 100 UNIT/ML 10 ML VIAL 7 UNIT SUBCUT ×2 (09:44→21:12)
--- NOTE | 2021-01-10 10:00 | PM.PNNEP ---
Subjective Subjective Date of Service: 01/10/21 Interval history: seen and examined No reported other overnight events No fever, chills or weakness No chest pain, palpitation No shortness of breath or coughing No abdominal pain, nausea or vomiting Physical Exam Vital Signs: Vital Signs: Last Vital Signs Temp 96 F L 01/10/21 07:12 Pulse 84 01/10/21 07:12 Resp 20 01/10/21 07:12 BP 160/70 H 01/10/21 07:12 Pulse Ox 96 01/10/21 07:12 Body Mass Index 21.9 Const: Other: Constitutional : Alert, oriented to self but otherwise confused General: No acute distress Eyes: EOM: EOMs intact bilaterally Neck: Neck: Yes supple Resp: Auscultation: diminished lung sounds Cardio: Jugular venous distension: no JVD GI: Palpation (GI): Soft to palpation Neuro: General: moves all extremities Objective Data Labs CBC & Chem 7: 01/08/21 05:59 01/10/21 06:58 Labs: Laboratory Results - last 24 hr 01/09/21 01/09/21 01/09/21 11:20 16:21 20:04 Sodium Potassium Chloride Carbon Dioxide Anion Gap BUN Creatinine Estim Creat Clear Calc Estimated GFR POC Glucose 287 H 382 H* 311 H Random Glucose Calcium 01/09/21 01/10/21 01/10/21 22:49 06:58 07:13 Sodium 129 L Potassium 4.5 Chloride 92 L Carbon Dioxide 25 Anion Gap 17 BUN 42 H D Creatinine 0.85 Estim Creat Clear Calc 45.1 Estimated GFR > 60 POC Glucose 111 303 H Random Glucose 308 H Calcium 8.4 D Microbiology Microbiology Results: Microbiology 01/07/21 19:07 Urine clean catch - Clean Catch Midstream Urine Culture - Final Escherichia coli Assessment & Plan Assessment and plan (1) Hyponatremia: Problem details: sodium better history of hyponatremia elevated urine sodium suggestive of SIADH REC Fluid restriction Urea 15 gram daily Follow electrolytes Status: Acute Time Spent With Patient Time: Total time spent is greater than 50% in coordination of care (as documented) at patient's floor/unit and/or counseling patient:
[2021-01-10 11:10] LABS: Glucose, Whole Blood 339 mg/dL (60-115)
--- NOTE | 2021-01-10 11:18 | P.PNIM_ITS ---
Subjective Subjective Date of Service: 01/10/21 Interval History: the patient was seen and evaluated this morning Laying in bed, feels better overall, mildly confused, refusing the Kyphoplasty Denies any fever, chills or shortness of breath No reported other overnight events. Systemic review: No fever, chills or weakness No chest pain, palpitation No shortness of breath or coughing No abdominal pain, nausea or vomiting No urinary symptoms No any rash or wounds Physical Exam Vital Signs: Vital Signs: Last Vital Signs Temp 96 F L 01/10/21 07:12 Pulse 84 01/10/21 07:12 Resp 20 01/10/21 07:12 BP 160/70 H 01/10/21 07:12 Pulse Ox 96 01/10/21 07:12 Body Mass Index 21.9 Const: Other: Constitutional : Alert, oriented to self but otherwise confused, anxious, in mild distress from the procedure Neck : Normal inspection, Supple Cardiovascular : RRR, S1 S2, no lower extremity edema Respiratory : Good bilateral air entry, no crackles, wheezes or rhonchi Gastrointestinal: soft, lax, Normal bowel sounds, mild generalized tenderness but no surgical signs Skin : Warm/Dry, left lower extremity heel dry ulcer with no drainage noted Neurological : Alert & oriented to self, No focal deficit Objective Data Current Medications Generic Name Dose Route Start Last Admin Trade Name Freq PRN Reason Stop Dose Admin Acetaminophen 650 mg 01/07/21 16:46 Acetaminophen 325 Mg Tablet PO Q6H PRN Pain (Scale Score 1-3) Acetaminophen 650 mg 01/07/21 16:46 Acetaminophen Supp 650 Mg Supp.Rect CO Q6H PRN Pain, Mild (Pain Scale 1-3) Acetaminophen 650 mg 01/09/21 10:40 01/10/21 08:20 Acetaminophen 325 Mg Tablet PO Not Given QSHIFT [facility] Alprazolam 0.25 mg 01/08/21 12:00 01/09/21 11:51 Alprazolam 0.25 Mg Tablet PO 0.25 mg DAILY@1200 [facility] Administration Alprazolam 0.5 mg 01/07/21 17:00 01/10/21 08:09 Alprazolam 0.5 Mg Tablet PO 0.5 mg TID@0900,1700,2100 [facility] Administration Amlodipine Besylate 2.5 mg 01/09/21 09:00 01/10/21 08:10 Amlodipine Besylate 5 Mg Tablet PO 2.5 mg DAILY [facility] Administration Protocol Artificial Tears 2 drop 01/07/21 16:46 01/09/21 21:31 Artificial Tears 15 Ml Drops EYE-BOTH 2 drop Q4H PRN Administration Dry Eyes Buspirone HCl 5 mg 01/07/21 17:00 01/10/21 08:10 Buspirone Hcl 5 Mg Tablet PO 5 mg BID@0900,1700 [facility] Administration Carvedilol 3.125 mg 01/07/21 21:00 01/10/21 08:11 Carvedilol 3.125 Mg Tablet PO 3.125 mg BID [facility] Administration Protocol Docusate Sodium 100 mg 01/07/21 21:00 01/10/21 08:10 Docusate Sodium 100 Mg Capsule PO 100 mg BID [facility] Administration Ceftriaxone Sodium 1 gm/ 50 mls @ 100 mls/hr 01/08/21 12:00 01/09/21 12:40 Sodium Chloride IV Infused Q24H [facility] Infusion Insulin Glargine 7 unit 01/08/21 09:00 01/10/21 09:44 Insulin Glargine,Hum.Rec.Anlog 100 Unit/Ml 10 Ml Vial SUBCUT 7 unit DAILY [facility] Administration Insulin Human Lispro 0 unit 01/07/21 16:46 01/10/21 08:08 Insulin Lispro 100 Unit/Ml 3 Ml Vial SUBCUT 8 unit QIDACHS [facility] Administration Protocol Latanoprost 1 drop 01/07/21 21:00 01/09/21 21:45 Latanoprost 0.005 % Ophth Vilma 2.5 Ml Drops EYE-RIGHT Not Given BEDTIME [facility] Losartan Potassium 100 mg 01/08/21 09:00 01/10/21 08:10 Losartan Potassium 50 Mg Tablet PO 100 mg DAILY [facility] Administration Protocol Mirtazapine 7.5 mg 01/07/21 21:00 01/09/21 21:22 Mirtazapine 7.5 Mg Tablet PO 7.5 mg BEDTIME [facility] Administration Ondansetron HCl 4 mg 01/07/21 16:46 Ondansetron Hcl 4 Mg/2 Ml Vial IVPUSH Q8H PRN Nausea and Vomiting Oxycodone HCl 2.5 mg 01/09/21 10:38 Oxycodone Hcl Immed Release 5 Mg Tablet PO Q6H PRN Pain, Severe (Pain Scale 7-10) Pharmacy Consult 1 each 01/07/21 12:43 Consult Rx Perform Med Rec MISCELLANE ONCE PRN Consult order Senna 17.2 mg 01/07/21 21:00 01/09/21 21:23 Sennosides 8.6 Mg Tablet PO 17.2 mg BEDTIME [facility] Administration Sodium Chloride 3 ml 01/08/21 00:00 01/10/21 08:12 0.9 % Sodium Chloride Flush 3 Ml Syringe IVFLUSH 3 ml QSHIFT [facility] Administration Tramadol HCl 50 mg 01/07/21 16:46 01/10/21 08:16 Tramadol Hcl 50 Mg Tablet PO 50 mg Q8H PRN Administration Pain (Scale Score 4-6) Labs CBC & Chem 7: 01/08/21 05:59 01/10/21 06:58 Microbiology Microbiology Results: Microbiology 01/07/21 19:07 Urine clean catch - Clean Catch Midstream Urine Culture - Final Escherichia coli Assessment and Plan (1) Hyponatremia: Status: Acute (2) Compression fracture of L2: Status: Acute (3) Diabetic foot ulcer: Status: Acute (4) Constipation: Status: Acute Assessment and Plan: A 80 years old lady with PMH of HTN, type 1 diabetes, glaucoma, macular degeneration, osteoporosis among others who presented to the hospital with worsening back and abdominal pain. L2 compression fracture Pain management secondary to osteoporosis CT sc you were an showing finding of L2 compression fracture Pain management; DC morphine, to use Oxycodone as needed Patient this morning declined kyphoplasty, to rediscuss with her and the family the and maybe planned for Tuesday otherwise can be discharged with home therapy and pain medications Hyponatremia Sodium of 129, corrected 131 urine electrolytes showing elevated sodium suggestive of possible SIADH Water restriction Start 15 Urea daily Monitor BMP Toxic Metabolic encephalopathy Likely secondary to hyponatremia, narcotics and hospital stay Improving To correct electrolytes, decrease narcotics and recurrent reorientation Avoid medications that might affect her mind Hyperkalemia Resolved Diabetic foot ulcer Seems stable with no drainage Will need local care at discharge Constipation Secondary decreased activity and pain medications Continue GI regimen with MiraLax, Colace and senna Type 1 diabetes continue Lantus SSI DVT PPX Lovenox
[2021-01-10] MEDS: Urea 15 GM POWDER PO (12:08)
[2021-01-10] MEDS: ALPRAZolam 0.25 MG TABLET PO (12:10)
[2021-01-10] MEDS: cefTRIAXone sodium 1 GM in 0.9 % Sodium Chloride 50 ML IV (12:14)
[2021-01-10 16:32] LABS: Glucose, Whole Blood 311 mg/dL (60-115)
[2021-01-10 20:50] LABS: Glucose, Whole Blood 317 mg/dL (60-115)
[2021-01-10] MEDS: Insulin Glargine,Hum.rec.anlog 100 UNIT/ML 10 ML VIAL SUBCUT (21:14)
[2021-01-10] MEDS: Sennosides 8.6 MG TABLET 17.2 MG PO (21:14)
[2021-01-10] MEDS: Mirtazapine 7.5 MG TABLET PO (21:14)
[2021-01-10] MEDS: Latanoprost 0.005 % Ophth Sol 2.5 ML DROPS 1 DROP EYE-RIGHT (21:15)
[2021-01-11 04:00] VITALS: BP 151/65; PULSE 85; RESP 16; TEMP 36.5; O2SAT 92
[2021-01-11 07:13] VITALS: BP 107/84; PULSE 71; RESP 16; TEMP 36.4; O2SAT 92
[2021-01-11 08:16] LABS: Glucose, Whole Blood 157 mg/dL (60-115)
[2021-01-11] MEDS: busPIRone HCl 5 MG TABLET PO ×2 (08:30→16:27)
[2021-01-11] MEDS: ALPRAZolam 0.5 MG TABLET PO ×3 (08:30→20:37)
[2021-01-11] MEDS: traMADoL HCL 50 MG TABLET PO ×2 (08:31→20:37)
[2021-01-11] MEDS: Losartan Potassium 50 MG TABLET 100 MG PO (08:31)
[2021-01-11] MEDS: Urea 15 GM POWDER PO (08:32)
[2021-01-11] MEDS: amLODIPine Besylate 5 MG TABLET 2.5 MG PO (08:33)
[2021-01-11] MEDS: carvediloL 3.125 MG TABLET PO ×2 (08:33→20:36)
[2021-01-11] MEDS: Insulin Glargine,Hum.rec.anlog 100 UNIT/ML 10 ML VIAL 10 UNIT SUBCUT (08:34)
[2021-01-11] MEDS: Insulin Lispro 100 UNIT/ML 3 ML VIAL SUBCUT ×4 (08:34→20:34)
--- NOTE | 2021-01-11 08:47 | PM.PNNEP ---
Subjective Subjective Date of Service: 01/11/21 Interval history: seen and examined No fever No chest pain No shortness of breath No abdominal pain, nausea or vomiting Physical Exam Vital Signs: Vital Signs: Last Vital Signs Temp 97.6 F 01/11/21 07:13 Pulse 71 01/11/21 07:13 Resp 16 01/11/21 07:13 BP 107/84 01/11/21 07:13 Pulse Ox 92 01/11/21 07:13 Body Mass Index 21.9 Const: Other: Constitutional : Alert, oriented to self but otherwise confused General: No acute distress Eyes: EOM: EOMs intact bilaterally Neck: Neck: Yes supple Resp: Auscultation: diminished lung sounds Cardio: Jugular venous distension: no JVD GI: Palpation (GI): Soft to palpation Neuro: General: moves all extremities Objective Data Labs CBC & Chem 7: 01/08/21 05:59 01/10/21 06:58 Labs: Laboratory Results - last 24 hr 01/10/21 01/10/21 01/10/21 11:07 16:27 20:44 POC Glucose 339 H 311 H 317 H 01/11/21 07:53 POC Glucose 157 H Microbiology Microbiology Results: Microbiology 01/07/21 19:07 Urine clean catch - Clean Catch Midstream Urine Culture - Final Escherichia coli Assessment & Plan Assessment and plan (1) Hyponatremia: Status: Acute Assessment and Plan: serum sodium improving history of hyponatremia consistent with SIADH REC continue fluid restriction urea 15 gram daily follow electrolytes Time Spent With Patient Time: Total time spent is greater than 50% in coordination of care (as documented) at patient's floor/unit and/or counseling patient:
[2021-01-11] MEDS: cefTRIAXone sodium 1 GM in 0.9 % Sodium Chloride 50 ML IV (11:22)
[2021-01-11] MEDS: ALPRAZolam 0.25 MG TABLET PO (11:23)
[2021-01-11] MEDS: 0.9 % Sodium Chloride Flush 3 ML SYRINGE IVFLUSH ×2 (11:23→16:27)
[2021-01-11 11:51] LABS: Glucose, Whole Blood 240 mg/dL (60-115)
--- NOTE | 2021-01-11 12:10 | HO.PM.IMPN ---
Subjective Subjective Date of Service: 01/11/21 Interval History: The patient was seen and evaluated this morning Laying in bed, feels better overall, plan to do a listed tomorrow morning Back pain is better controlled Denies any fever, chills or shortness of breath No reported other overnight events. Systemic review: No fever, chills or weakness No chest pain, palpitation No shortness of breath or coughing No abdominal pain, nausea or vomiting No urinary symptoms No any rash or wounds Physical Exam Vital Signs: Vital Signs: Last Vital Signs Temp 97.6 F 01/11/21 07:13 Pulse 71 01/11/21 07:13 Resp 16 01/11/21 07:13 BP 107/84 01/11/21 07:13 Pulse Ox 92 01/11/21 07:13 Body Mass Index 21.9 Const: Other: Constitutional : Alert, oriented to self but otherwise confused, anxious, in mild distress from the procedure Neck : Normal inspection, Supple Cardiovascular : RRR, S1 S2, no lower extremity edema Respiratory : Good bilateral air entry, no crackles, wheezes or rhonchi Gastrointestinal: soft, lax, Normal bowel sounds, mild generalized tenderness but no surgical signs Skin : Warm/Dry, left lower extremity heel dry ulcer with no drainage noted Neurological : Alert & oriented to self, No focal deficit Objective Data Current Medications Generic Name Dose Route Start Last Admin Trade Name Freq PRN Reason Stop Dose Admin Acetaminophen 650 mg 01/07/21 16:46 Acetaminophen 325 Mg Tablet PO Q6H PRN Pain (Scale Score 1-3) Acetaminophen 650 mg 01/07/21 16:46 Acetaminophen Supp 650 Mg Supp.Rect ND Q6H PRN Pain, Mild (Pain Scale 1-3) Acetaminophen 650 mg 01/09/21 10:40 01/11/21 08:33 Acetaminophen 325 Mg Tablet PO Not Given QSHIFT NELIDA Alprazolam 0.25 mg 01/08/21 12:00 01/11/21 11:23 Alprazolam 0.25 Mg Tablet PO 0.25 mg DAILY@1200 NELIDA Administration Alprazolam 0.5 mg 01/07/21 17:00 01/11/21 08:30 Alprazolam 0.5 Mg Tablet PO 0.5 mg TID@0900,1700,2100 NELIDA Administration Amlodipine Besylate 2.5 mg 01/09/21 09:00 01/11/21 08:33 Amlodipine Besylate 5 Mg Tablet PO 2.5 mg DAILY NELIDA Administration Protocol Artificial Tears 2 drop 01/07/21 16:46 01/09/21 21:31 Artificial Tears 15 Ml Drops EYE-BOTH 2 drop Q4H PRN Administration Dry Eyes Buspirone HCl 5 mg 01/07/21 17:00 01/11/21 08:30 Buspirone Hcl 5 Mg Tablet PO 5 mg BID@0900,1700 NELIDA Administration Carvedilol 3.125 mg 01/07/21 21:00 01/11/21 08:33 Carvedilol 3.125 Mg Tablet PO 3.125 mg BID NELIDA Administration Protocol Docusate Sodium 100 mg 01/07/21 21:00 01/11/21 09:00 Docusate Sodium 100 Mg Capsule PO Not Given BID [facility] Ceftriaxone Sodium 1 gm/ 50 mls @ 100 mls/hr 01/08/21 12:00 01/11/21 11:22 Sodium Chloride IV 100 mls/hr Q24H NELIDA Administration Insulin Glargine 10 unit 01/11/21 09:00 01/11/21 08:34 Insulin Glargine,Hum.Rec.Anlog 100 Unit/Ml 10 Ml Vial SUBCUT 10 unit DAILY NELIDA Administration Insulin Glargine 7 unit 01/11/21 21:00 Insulin Glargine,Hum.Rec.Anlog 100 Unit/Ml 10 Ml Vial SUBCUT BEDTIME NELIDA Insulin Human Lispro 0 unit 01/07/21 16:46 01/11/21 08:34 Insulin Lispro 100 Unit/Ml 3 Ml Vial SUBCUT 2 unit QIDACHS NELIDA Administration Protocol Latanoprost 1 drop 01/07/21 21:00 01/10/21 21:15 Latanoprost 0.005 % Ophth Vilma 2.5 Ml Drops EYE-RIGHT 1 drop BEDTIME NELIDA Administration Losartan Potassium 100 mg 01/08/21 09:00 01/11/21 08:31 Losartan Potassium 50 Mg Tablet PO 100 mg DAILY NELIDA Administration Protocol Mirtazapine 7.5 mg 01/07/21 21:00 01/10/21 21:14 Mirtazapine 7.5 Mg Tablet PO 7.5 mg BEDTIME NELIDA Administration Ondansetron HCl 4 mg 01/07/21 16:46 Ondansetron Hcl 4 Mg/2 Ml Vial IVPUSH Q8H PRN Nausea and Vomiting Oxycodone HCl 2.5 mg 01/09/21 10:38 Oxycodone Hcl Immed Release 5 Mg Tablet PO Q6H PRN Pain, Severe (Pain Scale 7-10) Pharmacy Consult 1 each 01/07/21 12:43 Consult Rx Perform Med Rec MISCELLANE ONCE PRN Consult order Senna 17.2 mg 01/07/21 21:00 01/10/21 21:14 Sennosides 8.6 Mg Tablet PO 17.2 mg BEDTIME NELIDA Administration Sodium Chloride 3 ml 01/08/21 00:00 01/11/21 11:23 0.9 % Sodium Chloride Flush 3 Ml Syringe IVFLUSH 3 ml QSHIFT NELIDA Administration Tramadol HCl 50 mg 01/07/21 16:46 01/11/21 08:31 Tramadol Hcl 50 Mg Tablet PO 50 mg Q8H PRN Administration Pain (Scale Score 4-6) Urea 15 gm 01/10/21 11:25 01/11/21 08:32 Urea 15 Gm Powder PO 15 gm DAILY NELIDA Administration Labs CBC & Chem 7: 01/08/21 05:59 01/10/21 06:58 Microbiology Microbiology Results: Microbiology 01/07/21 19:07 Urine clean catch - Clean Catch Midstream Urine Culture - Final Escherichia coli Assessment and Plan (1) Hyponatremia: Status: Acute (2) Compression fracture of L2: Status: Acute (3) Diabetic foot ulcer: Status: Acute (4) Constipation: Status: Acute Assessment and Plan: A 80 years old lady with PMH of HTN, type 1 diabetes, glaucoma, macular degeneration, osteoporosis among others who presented to the hospital with worsening back and abdominal pain. L2 compression fracture Pain management secondary to osteoporosis CT scan showing finding of L2 compression fracture Pain management; use Oxycodone as needed Patient agree to do kyphoplasty. Plan for tomorrow morning Keep NPO post midnight Hyponatremia Sodium of 129, corrected 131 urine electrolytes showing elevated sodium suggestive of possible SIADH Water restriction Continue 15 Urea daily Monitor BMP Toxic Metabolic encephalopathy Likely secondary to hyponatremia, narcotics and hospital stay Improving To correct electrolytes, decrease narcotics and recurrent reorientation Avoid medications that might affect her mind Hyperkalemia Resolved Diabetic foot ulcer Seems stable with no drainage Will need local care at discharge Constipation Secondary decreased activity and pain medications Continue GI regimen with MiraLax, Colace and senna Type 1 diabetes continue Lantus SSI DVT PPX Lovenox
[2021-01-11 15:48] VITALS: BP 142/56; PULSE 80; RESP 17; TEMP 36.8; O2SAT 92
[2021-01-11 17:01] LABS: Glucose, Whole Blood 173 mg/dL (60-115)
[2021-01-11 19:32] VITALS: BP 183/62; PULSE 90; RESP 16; TEMP 36.2; O2SAT 91
[2021-01-11 20:24] VITALS: BP 131/80; PULSE 95; RESP 20
[2021-01-11 20:28] LABS: Glucose, Whole Blood 185 mg/dL (60-115)
[2021-01-11] MEDS: Insulin Glargine,Hum.rec.anlog 100 UNIT/ML 10 ML VIAL 7 UNIT SUBCUT (20:35)
[2021-01-11 20:36] VITALS: BP 131/80; PULSE 95
[2021-01-11] MEDS: Latanoprost 0.005 % Ophth Sol 2.5 ML DROPS 1 DROP EYE-RIGHT (20:38)
[2021-01-11] MEDS: Mirtazapine 7.5 MG TABLET PO (20:38)
[2021-01-11] MEDS: Docusate Sodium 100 MG CAPSULE PO (20:38)
[2021-01-11] MEDS: Sennosides 8.6 MG TABLET 17.2 MG PO (20:38)
[2021-01-12] VITALS (10 sets, daily range): BP systolic 118–189; BP diastolic 62–92; PULSE 77–92; RESP 13–18; TEMP 35.9–36.7; O2SAT 91–98
[2021-01-12 00:02] LABS: Glucose, Whole Blood 179 mg/dL (60-115)
[2021-01-12 07:16] LABS: Hematocrit 28.9 % (37-47); Hemoglobin 8.9 g/dl (12.0-16.0); Mean Corpuscular HGB Conc 30.8 g/dl (31.0-35.0); Mean Corpuscular Hemoglobin 27.4 pg (27.0-33.0); Mean Corpuscular Volume 88.9 fL (80-98); Mean Platelet Volume 8.6 fL (9.4-12.3); Platelet Count 424 X10*3/uL (160-400); Red Blood Count 3.25 X10*6/uL (4.20-5.50); Red Cell Distribution Width 12.8 % (11.0-16.0); White Blood Count 6.5 X10*3/uL (4.8-10.8)
[2021-01-12 07:21] LABS: INTERNATIONAL NORM RATIO 1.1 (0.9-1.1); Prothrombin Time 13.4 SEC (10.8-13.0)
[2021-01-12 07:31] LABS: Glucose, Whole Blood 131 mg/dL (60-115)
[2021-01-12] MEDS: 0.9 % Sodium Chloride Flush 3 ML SYRINGE IVFLUSH ×4 (08:33→21:43)
[2021-01-12] MEDS: carvediloL 3.125 MG TABLET PO ×2 (08:39→21:18)
[2021-01-12] MEDS: amLODIPine Besylate 5 MG TABLET 2.5 MG PO (08:39)
[2021-01-12] MEDS: Losartan Potassium 50 MG TABLET 100 MG PO (08:40)
--- NOTE | 2021-01-12 10:32 | HO.PM.IMPN ---
Subjective Subjective Date of Service: 01/12/21 Interval History: The patient was seen and evaluated this morning Laying in bed, feels better overall with pain and the sugar good control with Prevent for a plasty this morning Denies any fever, chills or shortness of breath No reported other overnight events. Systemic review: No fever, chills or weakness No chest pain, palpitation No shortness of breath or coughing No abdominal pain, nausea or vomiting No urinary symptoms No any rash or wounds Physical Exam Vital Signs: Vital Signs: Last Vital Signs Temp 97.7 F 01/12/21 08:00 Pulse 87 01/12/21 08:00 Resp 18 01/12/21 08:00 BP 183/86 H 01/12/21 08:00 Pulse Ox 93 01/12/21 08:00 Body Mass Index 21.9 Const: Other: Constitutional : Alert, oriented to self but otherwise confused, anxious, in mild distress from the procedure Neck : Normal inspection, Supple Cardiovascular : RRR, S1 S2, no lower extremity edema Respiratory : Good bilateral air entry, no crackles, wheezes or rhonchi Gastrointestinal: soft, lax, Normal bowel sounds, mild generalized tenderness but no surgical signs Skin : Warm/Dry, left lower extremity heel dry ulcer with no drainage noted Neurological : Alert & oriented to self, No focal deficit Objective Data Current Medications Generic Name Dose Route Start Last Admin Trade Name Freq PRN Reason Stop Dose Admin Acetaminophen 650 mg 01/07/21 16:46 Acetaminophen 325 Mg Tablet PO Q6H PRN Pain (Scale Score 1-3) Acetaminophen 650 mg 01/07/21 16:46 Acetaminophen Supp 650 Mg Supp.Rect DE Q6H PRN Pain, Mild (Pain Scale 1-3) Acetaminophen 650 mg 01/09/21 10:40 01/12/21 00:04 Acetaminophen 325 Mg Tablet PO Not Given QSHIFT NELIDA Alprazolam 0.25 mg 01/08/21 12:00 01/11/21 11:23 Alprazolam 0.25 Mg Tablet PO 0.25 mg DAILY@1200 NELIDA Administration Alprazolam 0.5 mg 01/07/21 17:00 01/11/21 20:37 Alprazolam 0.5 Mg Tablet PO 0.5 mg TID@0900,1700,2100 [facility] Administration Amlodipine Besylate 2.5 mg 01/09/21 09:00 01/12/21 08:39 Amlodipine Besylate 5 Mg Tablet PO 2.5 mg DAILY NELIDA Administration Protocol Artificial Tears 2 drop 01/07/21 16:46 01/09/21 21:31 Artificial Tears 15 Ml Drops EYE-BOTH 2 drop Q4H PRN Administration Dry Eyes Buspirone HCl 5 mg 01/07/21 17:00 01/11/21 16:27 Buspirone Hcl 5 Mg Tablet PO 5 mg BID@0900,1700 NELIDA Administration Carvedilol 3.125 mg 01/07/21 21:00 01/12/21 08:39 Carvedilol 3.125 Mg Tablet PO 3.125 mg BID NELIDA Administration Protocol Docusate Sodium 100 mg 01/07/21 21:00 01/11/21 20:38 Docusate Sodium 100 Mg Capsule PO 100 mg BID NELIDA Administration Ceftriaxone Sodium 1 gm/ 50 mls @ 100 mls/hr 01/08/21 12:00 01/11/21 13:21 Sodium Chloride IV Infused Q24H NELIDA Infusion Insulin Glargine 10 unit 01/11/21 09:00 01/11/21 08:34 Insulin Glargine,Hum.Rec.Anlog 100 Unit/Ml 10 Ml Vial SUBCUT 10 unit DAILY NELIDA Administration Insulin Glargine 7 unit 01/11/21 21:00 01/11/21 20:35 Insulin Glargine,Hum.Rec.Anlog 100 Unit/Ml 10 Ml Vial SUBCUT 7 unit BEDTIME NELIDA Administration Insulin Human Lispro 0 unit 01/07/21 16:46 01/12/21 09:45 Insulin Lispro 100 Unit/Ml 3 Ml Vial SUBCUT Not Given QIDACHS [facility] Protocol Latanoprost 1 drop 01/07/21 21:00 01/11/21 20:38 Latanoprost 0.005 % Ophth Vilma 2.5 Ml Drops EYE-RIGHT 1 drop BEDTIME NELIDA Administration Losartan Potassium 100 mg 01/08/21 09:00 01/12/21 08:40 Losartan Potassium 50 Mg Tablet PO 100 mg DAILY NELIDA Administration Protocol Mirtazapine 7.5 mg 01/07/21 21:00 01/11/21 20:38 Mirtazapine 7.5 Mg Tablet PO 7.5 mg BEDTIME NELIDA Administration Ondansetron HCl 4 mg 01/07/21 16:46 Ondansetron Hcl 4 Mg/2 Ml Vial IVPUSH Q8H PRN Nausea and Vomiting Oxycodone HCl 2.5 mg 01/09/21 10:38 Oxycodone Hcl Immed Release 5 Mg Tablet PO Q6H PRN Pain, Severe (Pain Scale 7-10) Pharmacy Consult 1 each 01/07/21 12:43 Consult Rx Perform Med Rec MISCELLANE ONCE PRN Consult order Senna 17.2 mg 01/07/21 21:00 01/11/21 20:38 Sennosides 8.6 Mg Tablet PO 17.2 mg BEDTIME NELIDA Administration Sodium Chloride 3 ml 01/08/21 00:00 01/12/21 08:33 0.9 % Sodium Chloride Flush 3 Ml Syringe IVFLUSH 3 ml QSHIFT NELIDA Administration Tramadol HCl 50 mg 01/07/21 16:46 01/11/21 20:37 Tramadol Hcl 50 Mg Tablet PO 50 mg Q8H PRN Administration Pain (Scale Score 4-6) Urea 15 gm 01/10/21 11:25 01/11/21 08:32 Urea 15 Gm Powder PO 15 gm DAILY NELIDA Administration Labs CBC & Chem 7: 01/12/21 06:50 01/10/21 06:58 Microbiology Microbiology Results: Microbiology 01/07/21 19:07 Urine clean catch - Clean Catch Midstream Urine Culture - Final Escherichia coli Assessment and Plan (1) Hyponatremia: Status: Acute (2) Compression fracture of L2: Status: Acute (3) Diabetic foot ulcer: Status: Acute (4) Constipation: Status: Acute Assessment and Plan: A 80 years old lady with PMH of HTN, type 1 diabetes, glaucoma, macular degeneration, osteoporosis among others who presented to the hospital with worsening back and abdominal pain. T12, L2 compression fracture Pain management secondary to osteoporosis CT scan showing finding of L2 compression fracture Pain management; use Oxycodone as needed Plan for kyphoplasty today for T12 and L2 Keep NPO post midnight Hyponatremia Sodium of 129, corrected 131 urine electrolytes showing elevated sodium suggestive of possible SIADH Water restriction Continue 15 Urea daily Monitor BMP Toxic Metabolic encephalopathy Likely secondary to hyponatremia, narcotics and hospital stay Improved To correct electrolytes, decrease narcotics and recurrent reorientation Avoid medications that might affect her mind Hyperkalemia Resolved Diabetic foot ulcer Seems stable with no drainage Will need local care at discharge Constipation Secondary decreased activity and pain medications Continue GI regimen with MiraLax, Colace and senna Type 1 diabetes continue Lantus SSI DVT PPX Lovenox
[2021-01-12] MEDS: Lidocaine HCl 1 % MPF 5 ML VIAL 10 ML SUBCUT (11:36)
[2021-01-12 12:08] LABS: Glucose, Whole Blood 150 mg/dL (60-115)
[2021-01-12] MEDS: cefTRIAXone sodium 1 GM in 0.9 % Sodium Chloride 50 ML IV (13:18)
[2021-01-12] MEDS: traMADoL HCL 50 MG TABLET PO ×2 (13:18→21:41)
--- NOTE | 2021-01-12 14:58 | MHC.CLN ---
F/U 75% AVG PO INTAKE DIET RX: REGULAR-WILL RESTART 2000DM DIET WITH 1200CC FLUID RESTRICTION RECOMMEND RE-STARTING GUY, GLUCERNA AND PROSOURCE TO SUPPORT WOUND HEALING SUPPLEMENTS PROVIDE 754KCALS ((38% EST KCAL NEEDS), 55G PROTEIN (55% EST PROTEIN NEEDS) FOLLOWING
--- NOTE | 2021-01-12 15:16 | PC.NURSE ---
1200 back from kyphoplasty. Has 4 sm dsgs on back. D@i Neuros stable. able to move legs. Is on bedrest x 4 hours. Pt aware. 1300 Unable to void on bedpan. Has bladder prolapse. New order received for str cath. Drained 1000ml cloudy urine.
[2021-01-12] MEDS: Urea 15 GM POWDER PO (15:34)
[2021-01-12] MEDS: ALPRAZolam 0.5 MG TABLET PO ×2 (15:34→21:18)
--- NOTE | 2021-01-12 16:14 | MHC.CM.PN ---
PLAN IS FOR DISCHARGE TUESDAY. PATIENT WILL BE STATUS POST ONE DAY KYPHOPLASTY. SIGNIFICANT OTHER (IN ROOM) AWARE OF PLAN.
[2021-01-12 16:47] LABS: Glucose, Whole Blood 211 mg/dL (60-115)
[2021-01-12] MEDS: busPIRone HCl 5 MG TABLET PO (17:24)
[2021-01-12] MEDS: Insulin Lispro 100 UNIT/ML 3 ML VIAL SUBCUT ×2 (17:25→21:19)
--- NOTE | 2021-01-12 17:27 | PM.PNNEP ---
Subjective Subjective Date of Service: 01/12/21 Interval history: Events noted. All recent data reviewed Physical Exam Vital Signs: Vital Signs: Last Vital Signs Temp 97.4 F 01/12/21 16:00 Pulse 86 01/12/21 16:00 Resp 13 01/12/21 16:00 BP 174/66 H 01/12/21 16:00 Pulse Ox 95 01/12/21 16:00 Body Mass Index 21.9 Const: General: No acute distress Neck: Neck: Yes supple Resp: Auscultation: diminished lung sounds Cardio: Jugular venous distension: no JVD GI: Palpation (GI): Soft to palpation Neuro: General: moves all extremities Objective Data Labs CBC & Chem 7: 01/12/21 06:50 01/10/21 06:58 Labs: Laboratory Results - last 24 hr 01/11/21 01/11/21 01/12/21 20:22 23:57 06:50 WBC 6.5 RBC 3.25 L Hgb 8.9 L Hct 28.9 L MCV 88.9 MCH 27.4 MCHC 30.8 L RDW 12.8 Plt Count 424 H MPV 8.6 L Absolute Nucleated RBC 0.000 Nucleated RBC % (auto) 0.0 PT INR POC Glucose 185 H 179 H 01/12/21 01/12/21 01/12/21 06:50 07:25 12:04 WBC RBC Hgb Hct MCV MCH MCHC RDW Plt Count MPV Absolute Nucleated RBC Nucleated RBC % (auto) PT 13.4 H INR 1.1 POC Glucose 131 H 150 H 01/12/21 16:42 WBC RBC Hgb Hct MCV MCH MCHC RDW Plt Count MPV Absolute Nucleated RBC Nucleated RBC % (auto) PT INR POC Glucose 211 H Microbiology Microbiology Results: Microbiology 01/07/21 19:07 Urine clean catch - Clean Catch Midstream Urine Culture - Final Escherichia coli Assessment & Plan Assessment and plan (1) Hyponatremia: Problem details: Hyponatremia Sodium of 129, corrected 131 Euvolemic Hyponatremia due to excess ADH PO free water restriction Continue 15 Urea PO daily Shall continue to follow up Status: Acute Time Spent With Patient Time: Total time spent is greater than 50% in coordination of care (as documented) at patient's floor/unit and/or counseling patient:
[2021-01-12 21:08] LABS: Glucose, Whole Blood 229 mg/dL (60-115)
[2021-01-12] MEDS: Mirtazapine 7.5 MG TABLET PO (21:17)
[2021-01-12] MEDS: Sennosides 8.6 MG TABLET 17.2 MG PO (21:17)
[2021-01-12] MEDS: Docusate Sodium 100 MG CAPSULE PO (21:17)
[2021-01-12] MEDS: Insulin Glargine,Hum.rec.anlog 100 UNIT/ML 10 ML VIAL 7 UNIT SUBCUT (21:18)
[2021-01-12] MEDS: Latanoprost 0.005 % Ophth Sol 2.5 ML DROPS 1 DROP EYE-RIGHT (21:26)
[2021-01-13 03:07] VITALS: RESP 16
[2021-01-13 06:26] LABS: Hematocrit 29.4 % (37-47); Hemoglobin 9.2 g/dl (12.0-16.0); Mean Corpuscular HGB Conc 31.3 g/dl (31.0-35.0); Mean Corpuscular Hemoglobin 27.6 pg (27.0-33.0); Mean Corpuscular Volume 88.3 fL (80-98); Mean Platelet Volume 8.6 fL (9.4-12.3); Platelet Count 423 X10*3/uL (160-400); Red Blood Count 3.33 X10*6/uL (4.20-5.50); Red Cell Distribution Width 12.8 % (11.0-16.0); White Blood Count 7.8 X10*3/uL (4.8-10.8)
[2021-01-13 06:39] LABS: Anion Gap 14 (12-20); Blood Urea Nitrogen 35 mg/dL (9-16); Calcium 8.5 mg/dL (8.4-10.2); Carbon Dioxide 29 mmol/L (22-29); Chloride 96 mmol/L (96-108); Creatinine Clr Calc Pharmacy 53.2; Estimated Glomerular Filt Rate > 60; Glucose Random 193 mg/dL (60-115); Potassium 3.9 mmol/L (3.3-5.1); Sodium 135 mmol/L (135-145)
[2021-01-13 07:35] LABS: Glucose, Whole Blood 164 mg/dL (60-115)
[2021-01-13 08:00] VITALS: BP 134/74; PULSE 86; RESP 16; TEMP 36.4; O2SAT 95
[2021-01-13] MEDS: Docusate Sodium 100 MG CAPSULE PO ×2 (08:45→22:19)
[2021-01-13] MEDS: Acetaminophen 325 MG TABLET 650 MG PO ×2 (08:45→18:23)
[2021-01-13] MEDS: busPIRone HCl 5 MG TABLET PO ×2 (08:45→18:23)
[2021-01-13] MEDS: traMADoL HCL 50 MG TABLET PO ×2 (08:45→18:35)
[2021-01-13] MEDS: ALPRAZolam 0.5 MG TABLET PO ×3 (08:45→22:20)
[2021-01-13] MEDS: Urea 15 GM POWDER PO (08:46)
[2021-01-13] MEDS: Insulin Glargine,Hum.rec.anlog 100 UNIT/ML 10 ML VIAL 10 UNIT SUBCUT (08:47)
[2021-01-13] MEDS: Insulin Lispro 100 UNIT/ML 3 ML VIAL SUBCUT ×3 (08:47→22:19)
--- NOTE | 2021-01-13 09:49 | PM.PNNEP ---
Subjective Subjective Date of Service: 01/13/21 Interval history: Events noted. All recent data reviewed Physical Exam Vital Signs: Vital Signs: Last Vital Signs Temp 97.6 F 01/13/21 08:00 Pulse 86 01/13/21 08:00 Resp 16 01/13/21 08:00 BP 134/74 01/13/21 08:00 Pulse Ox 95 01/13/21 08:00 Body Mass Index 21.9 Const: General: No no acute distress Orientation/consciousness: patient oriented x3 Neck: Neck: Yes supple Resp: Auscultation: diminished lung sounds Cardio: Jugular venous distension: no JVD GI: Palpation (GI): Soft to palpation Neuro: General: patient oriented x3 Objective Data Labs CBC & Chem 7: 01/13/21 05:56 01/13/21 05:57 Labs: Laboratory Results - last 24 hr 01/12/21 01/12/21 01/12/21 12:04 16:42 21:03 WBC RBC Hgb Hct MCV MCH MCHC RDW Plt Count MPV Absolute Nucleated RBC Nucleated RBC % (auto) Sodium Potassium Chloride Carbon Dioxide Anion Gap BUN Creatinine Estim Creat Clear Calc Estimated GFR POC Glucose 150 H 211 H 229 H Random Glucose Calcium 01/13/21 01/13/21 01/13/21 05:56 05:57 07:21 WBC 7.8 RBC 3.33 L Hgb 9.2 L Hct 29.4 L MCV 88.3 MCH 27.6 MCHC 31.3 RDW 12.8 Plt Count 423 H MPV 8.6 L Absolute Nucleated RBC 0.000 Nucleated RBC % (auto) 0.0 Sodium 135 Potassium 3.9 Chloride 96 Carbon Dioxide 29 Anion Gap 14 BUN 35 H Creatinine 0.72 Estim Creat Clear Calc 53.2 Estimated GFR > 60 POC Glucose 164 H Random Glucose 193 H D Calcium 8.5 Microbiology Microbiology Results: Microbiology 01/07/21 19:07 Urine clean catch - Clean Catch Midstream Urine Culture - Final Escherichia coli Assessment & Plan Assessment and plan (1) Hyponatremia: Problem details: Hyponatremia Sodium 135 today Euvolemic Hyponatremia due to excess ADH PO free water restriction Continue 15 Urea PO daily Shall arrange office follow up when D/Gurpreet Status: Acute Time Spent With Patient Time: Total time spent is greater than 50% in coordination of care (as documented) at patient's floor/unit and/or counseling patient:
[2021-01-13] MEDS: amLODIPine Besylate 5 MG TABLET 2.5 MG PO (11:03)
[2021-01-13] MEDS: Azithromycin 500 MG in 0.9 % Sodium Chloride 250 ML 125 MG IV (11:03)
[2021-01-13] MEDS: carvediloL 3.125 MG TABLET PO ×2 (11:03→22:19)
[2021-01-13] MEDS: Losartan Potassium 50 MG TABLET 100 MG PO (11:03)
[2021-01-13] MEDS: Furosemide 20 MG/2 ML VIAL IVPUSH (11:04)
--- NOTE | 2021-01-13 11:06 | MHC.CM.PN ---
i have spoken c pt at length about dc plan and the option of going to [facility]. despite the recomendations of PT, the patient has chosen to return home c her s.o. - srikanth. she also has some sv[facility] through [facility] and has a requested a ref. be made to [facility] and [facility] PT - this has been done. pt reports that srikanth helps her c everything and that he is a young 77 y/o and always available. she also says her son in [place] can help her if she needs. she does use a walker and feels she can manage c her supports at home. srikanth will be providing transportation at dc. cm to cont. to follow.
[2021-01-13 11:40] LABS: Glucose, Whole Blood 261 mg/dL (60-115)
[2021-01-13 12:00] VITALS: BP 114/53; PULSE 77; RESP 16; TEMP 36.4; O2SAT 94
[2021-01-13] MEDS: ALPRAZolam 0.25 MG TABLET PO (12:12)
--- NOTE | 2021-01-13 13:22 | HO.PM.IMPN ---
Subjective Subjective Date of Service: 01/13/21 Interval History: The patient was seen and evaluated this morning Feels weak and lethargic today, denies any fever or chills to Images were concerning for pleural effusions and atelectasis Denies any fever, chills or shortness of breath No reported other overnight events. Systemic review: No fever, chills but reports generalized weakness No chest pain, palpitation No shortness of breath or coughing No abdominal pain, nausea or vomiting No urinary symptoms No any rash or wounds Physical Exam Vital Signs: Vital Signs: Last Vital Signs Temp 97.6 F 01/13/21 08:00 Pulse 86 01/13/21 08:00 Resp 16 01/13/21 08:00 BP 134/74 01/13/21 08:00 Pulse Ox 95 01/13/21 08:00 Body Mass Index 21.9 Const: Other: Constitutional : Alert, oriented to self but otherwise comfortable, generalized weakness Neck : Normal inspection, Supple Cardiovascular : RRR, S1 S2, no lower extremity edema Respiratory : Good bilateral air entry, no crackles, wheezes or rhonchi Gastrointestinal: soft, lax, Normal bowel sounds, mild generalized tenderness but no surgical signs Skin : Warm/Dry, left lower extremity heel dry ulcer with no drainage noted Neurological : Alert & oriented to self, No focal deficit Objective Data Current Medications Generic Name Dose Route Start Last Admin Trade Name Freq PRN Reason Stop Dose Admin Acetaminophen 650 mg 01/07/21 16:46 Acetaminophen 325 Mg Tablet PO Q6H PRN Pain (Scale Score 1-3) Acetaminophen 650 mg 01/07/21 16:46 Acetaminophen Supp 650 Mg Supp.Rect ME Q6H PRN Pain, Mild (Pain Scale 1-3) Acetaminophen 650 mg 01/09/21 10:40 01/13/21 08:45 Acetaminophen 325 Mg Tablet PO 650 mg QSHIFT NELIDA Administration Alprazolam 0.25 mg 01/08/21 12:00 01/13/21 12:12 Alprazolam 0.25 Mg Tablet PO 0.25 mg DAILY@1200 NELIDA Administration Alprazolam 0.5 mg 01/07/21 17:00 01/13/21 08:45 Alprazolam 0.5 Mg Tablet PO 0.5 mg TID@0900,1700,2100 NELIDA Administration Amlodipine Besylate 2.5 mg 01/09/21 09:00 01/13/21 11:03 Amlodipine Besylate 5 Mg Tablet PO 2.5 mg DAILY NELIDA Administration Protocol Artificial Tears 2 drop 01/07/21 16:46 01/09/21 21:31 Artificial Tears 15 Ml Drops EYE-BOTH 2 drop Q4H PRN Administration Dry Eyes Buspirone HCl 5 mg 01/07/21 17:00 01/13/21 08:45 Buspirone Hcl 5 Mg Tablet PO 5 mg BID@0900,1700 NELIDA Administration Carvedilol 3.125 mg 01/07/21 21:00 01/13/21 11:03 Carvedilol 3.125 Mg Tablet PO 3.125 mg BID NELIDA Administration Protocol Docusate Sodium 100 mg 01/07/21 21:00 01/13/21 08:45 Docusate Sodium 100 Mg Capsule PO 100 mg BID NELIDA Administration Ceftriaxone Sodium 1 gm/ 50 mls @ 100 mls/hr 01/08/21 12:00 01/12/21 16:16 Sodium Chloride IV Infused Q24H NELIDA Infusion Azithromycin 500 mg/ Sodium 250 mls @ 125 mls/hr 01/13/21 11:00 01/13/21 11:03 Chloride IV 125 mls/hr Q24H NELIDA Administration Insulin Glargine 10 unit 01/11/21 09:00 01/13/21 08:47 Insulin Glargine,Hum.Rec.Anlog 100 Unit/Ml 10 Ml Vial SUBCUT 10 unit DAILY NELIDA Administration Insulin Glargine 7 unit 01/11/21 21:00 01/12/21 21:18 Insulin Glargine,Hum.Rec.Anlog 100 Unit/Ml 10 Ml Vial SUBCUT 7 unit BEDTIME NELIDA Administration Insulin Human Lispro 0 unit 01/07/21 16:46 01/13/21 12:12 Insulin Lispro 100 Unit/Ml 3 Ml Vial SUBCUT 6 unit QIDACHS NELIDA Administration Protocol Latanoprost 1 drop 01/07/21 21:00 01/12/21 21:26 Latanoprost 0.005 % Ophth Vilma 2.5 Ml Drops EYE-RIGHT 1 drop BEDTIME NELIDA Administration Losartan Potassium 100 mg 01/08/21 09:00 01/13/21 11:03 Losartan Potassium 50 Mg Tablet PO 100 mg DAILY NELIDA Administration Protocol Mirtazapine 7.5 mg 01/07/21 21:00 01/12/21 21:17 Mirtazapine 7.5 Mg Tablet PO 7.5 mg BEDTIME NELIDA Administration Ondansetron HCl 4 mg 01/07/21 16:46 Ondansetron Hcl 4 Mg/2 Ml Vial IVPUSH Q8H PRN Nausea and Vomiting Oxycodone HCl 2.5 mg 01/09/21 10:38 Oxycodone Hcl Immed Release 5 Mg Tablet PO Q6H PRN Pain, Severe (Pain Scale 7-10) Pharmacy Consult 1 each 01/07/21 12:43 Consult Rx Perform Med Rec MISCELLANE ONCE PRN Consult order Senna 17.2 mg 01/07/21 21:00 01/12/21 21:17 Sennosides 8.6 Mg Tablet PO 17.2 mg BEDTIME NELIDA Administration Sodium Chloride 3 ml 01/08/21 00:00 01/12/21 21:43 0.9 % Sodium Chloride Flush 3 Ml Syringe IVFLUSH 3 ml QSHIFT NELIDA Administration Tramadol HCl 50 mg 01/07/21 16:46 01/13/21 08:45 Tramadol Hcl 50 Mg Tablet PO 50 mg Q8H PRN Administration Pain (Scale Score 4-6) Urea 15 gm 01/10/21 11:25 01/13/21 08:46 Urea 15 Gm Powder PO 15 gm DAILY NELIDA Administration Labs CBC & Chem 7: 01/13/21 05:56 01/13/21 05:57 Microbiology Microbiology Results: Microbiology 01/07/21 19:07 Urine clean catch - Clean Catch Midstream Urine Culture - Final Escherichia coli Assessment and Plan (1) Hyponatremia: Status: Acute (2) Compression fracture of L2: Status: Acute (3) Pleural effusion: Status: Acute (4) Pneumonia: Status: Acute Assessment and Plan: A 80 years old lady with PMH of HTN, type 1 diabetes, glaucoma, macular degeneration, osteoporosis among others who presented to the hospital with worsening back and abdominal pain. Pleural effusion Noticed on repeated images post kyphoplasty Start Lasix Incentive spirometry Pneumonia Not requiring oxygen Right upper and left lower infiltrate Continue IV antibiotics of ceftriaxone azithromycin UTI Culture growing E coli continue ceftriaxone T12, L2 compression fracture Pain management secondary to osteoporosis CT scan showing finding of L2 compression fracture Pain management; use Oxycodone as needed kyphoplasty done for T12 and L2 Hyponatremia Improved to 135 urine electrolytes showing elevated sodium suggestive of possible SIADH Water restriction Continue 15 Urea daily Monitor BMP Toxic Metabolic encephalopathy Likely secondary to hyponatremia, narcotics and hospital stay Resolved To correct electrolytes, decrease narcotics and recurrent reorientation Hyperkalemia Resolved Diabetic foot ulcer Seems stable with no drainage Will need local care at discharge Constipation Secondary decreased activity and pain medications Continue GI regimen with MiraLax, Colace and senna Type 1 diabetes continue Lantus SSI DVT PPX Lovenox
[2021-01-13] MEDS: cefTRIAXone sodium 1 GM in 0.9 % Sodium Chloride 50 ML IV (14:05)
[2021-01-13 15:40] VITALS: BP 145/59; PULSE 81; RESP 19; TEMP 37.1; O2SAT 90
[2021-01-13 16:53] LABS: Glucose, Whole Blood 91 mg/dL (60-115)
[2021-01-13] MEDS: 0.9 % Sodium Chloride Flush 3 ML SYRINGE IVFLUSH (18:23)
[2021-01-13 19:34] VITALS: BP 117/64; PULSE 91; RESP 19; TEMP 36.8; O2SAT 93
[2021-01-13 20:31] LABS: Glucose, Whole Blood 349 mg/dL (60-115)
[2021-01-13] MEDS: Sennosides 8.6 MG TABLET 17.2 MG PO (22:19)
[2021-01-13] MEDS: Insulin Glargine,Hum.rec.anlog 100 UNIT/ML 10 ML VIAL 7 UNIT SUBCUT (22:19)
[2021-01-13] MEDS: Latanoprost 0.005 % Ophth Sol 2.5 ML DROPS 1 DROP EYE-RIGHT (22:20)
[2021-01-13] MEDS: Mirtazapine 7.5 MG TABLET PO (22:20)
[2021-01-13 23:48] VITALS: BP 111/55; PULSE 78; RESP 16; TEMP 36.6; O2SAT 92
[2021-01-14] MEDS: 0.9 % Sodium Chloride Flush 3 ML SYRINGE IVFLUSH ×2 (00:55→08:38)
[2021-01-14 03:43] VITALS: BP 155/46; PULSE 76; RESP 14; TEMP 36.3; O2SAT 98
[2021-01-14 07:44] LABS: Glucose, Whole Blood 137 mg/dL (60-115)
[2021-01-14 08:00] VITALS: BP 127/75; PULSE 83; RESP 16; TEMP 36.6; O2SAT 92
[2021-01-14] MEDS: Urea 15 GM POWDER PO (08:33)
[2021-01-14] MEDS: amLODIPine Besylate 5 MG TABLET 2.5 MG PO (08:35)
[2021-01-14] MEDS: Losartan Potassium 50 MG TABLET 100 MG PO (08:35)
[2021-01-14] MEDS: busPIRone HCl 5 MG TABLET PO (08:35)
[2021-01-14] MEDS: carvediloL 3.125 MG TABLET PO (08:36)
[2021-01-14] MEDS: ALPRAZolam 0.5 MG TABLET PO (08:36)
[2021-01-14] MEDS: Acetaminophen 325 MG TABLET 650 MG PO (08:37)
[2021-01-14] MEDS: Insulin Glargine,Hum.rec.anlog 100 UNIT/ML 10 ML VIAL 10 UNIT SUBCUT (08:38)
[2021-01-14] MEDS: traMADoL HCL 50 MG TABLET PO (08:45)
[2021-01-14] MEDS: Artificial Tears 15 ML DROPS 2 DROP EYE-BOTH (08:50)
[2021-01-14 12:00] VITALS: BP 125/62; PULSE 97; RESP 16; TEMP 36; O2SAT 93
[2021-01-14 12:05] LABS: Glucose, Whole Blood 280 mg/dL (60-115)
[2021-01-14] MEDS: Azithromycin 500 MG in 0.9 % Sodium Chloride 250 ML 125 MG IV (12:06)
[2021-01-14] MEDS: ALPRAZolam 0.25 MG TABLET PO (12:10)
[2021-01-14] MEDS: Insulin Lispro 100 UNIT/ML 3 ML VIAL SUBCUT (12:13)
--- NOTE | 2021-01-14 12:13 | PM.PNNEP ---
Subjective Subjective Date of Service: 01/14/21 Interval history: Events noted. All recent data reviewed. D/W Hospitalist Physical Exam Vital Signs: Vital Signs: Last Vital Signs Temp 98 F 01/14/21 08:00 Pulse 83 01/14/21 08:00 Resp 16 01/14/21 08:00 BP 127/75 01/14/21 08:00 Pulse Ox 92 01/14/21 08:00 Body Mass Index 21.9 Const: General: No no acute distress Orientation/consciousness: patient oriented x3 Neck: Neck: Yes supple Resp: Auscultation: diminished lung sounds Cardio: Heart sounds: no rubs GI: Palpation (GI): Soft to palpation Neuro: General: patient oriented x3 and moves all extremities Objective Data Labs CBC & Chem 7: 01/13/21 05:56 01/13/21 05:57 Labs: Laboratory Results - last 24 hr 01/13/21 01/13/21 01/14/21 16:42 20:22 07:20 POC Glucose 91 349 H 137 H 01/14/21 12:01 POC Glucose 280 H Microbiology Microbiology Results: Microbiology 01/07/21 19:07 Urine clean catch - Clean Catch Midstream Urine Culture - Final Escherichia coli Assessment & Plan Assessment and plan (1) Hyponatremia: Problem details: Hyponatremia Sodium 135 yesterday Euvolemic Hyponatremia due to excess ADH PO free water restriction Continue 15 Urea PO daily Shall arrange office follow up if D/Gurpreet Status: Acute Time Spent With Patient Time: Total time spent is greater than 50% in coordination of care (as documented) at patient's floor/unit and/or counseling patient:
--- NOTE | 2021-01-14 13:03 | P.DS_ITS ---
DS: Providers Provider Date of Service: 01/14/21 Date of admission: 01/07/21 16:34 Primary care physician: Garland Meeks MD Consults: 01/09/21 07:46 Consult to Nephrology Routine Consulting Provider: Rachid Damon Reason for consultation: Hyponatremia for your kind eval. DS: Diagnosis Discharge Diagnosis (1) Hyponatremia: Status: Acute (2) Compression fracture of L2: Status: Acute (3) Pleural effusion: Status: Acute (4) Pneumonia: Status: Acute (5) Diabetic foot ulcer: Status: Acute (6) Hyperkalemia: Status: Acute (7) Constipation: Status: Acute DS: Medications Discharge Medications Home Medications: Home Medications Medication Instructions Recorded Confirmed Levemir U-100 Insulin 5 unit SUBCUT BEDTIME 01/07/21 01/07/21 Levemir U-100 Insulin 7 unit SUBCUT DAILY 01/07/21 01/07/21 Xelpros 1 drp OPHTHALMIC-RIGHT BEDTIME 01/07/21 01/07/21 acetaminophen 650 mg PO Q6H PRN 01/07/21 01/07/21 alprazolam 0.25 mg PO DAILY@1200 01/07/21 01/07/21 alprazolam 0.5 mg PO TID@0900,1700,2100 01/07/21 01/07/21 aspirin 81 mg PO DAILY 01/07/21 01/07/21 bupropion HCl 100 mg PO DAILY 01/07/21 01/07/21 buspirone 5 mg PO BID@0900,1700 01/07/21 01/07/21 carboxymethylcellulose sodium 1 drp OPHTHALMIC (EYE) Q4H PRN 01/07/21 01/07/21 [Refresh Tears] carvedilol 3.125 tab PO BID@0900,1700 01/07/21 01/07/21 diclofenac sodium 4 g TOPICAL QID PRN 01/07/21 01/07/21 insulin aspart U-100 [Novolog See Protocol SUBCUT TIDAC 01/07/21 01/07/21 U-100 Insulin aspart] losartan 100 mg PO DAILY 01/07/21 01/07/21 mirtazapine 7.5 mg PO BEDTIME 01/07/21 01/07/21 omega 3-bfq-wmm-fish oil [Fish Oil] 1 cap PO Q2D@0900 01/07/21 01/07/21 rosuvastatin 5 mg PO Q2D@0900 01/07/21 01/07/21 tramadol 50 mg PO Q8H PRN 01/07/21 01/07/21 Previous Rx's Medication Instructions Recorded azithromycin 500 mg PO DAILY 5 Days #5 tab 01/14/21 cefuroxime axetil 500 mg PO BID #8 tab 01/14/21 urea (bulk) 15 g PO DAILY 30 Days g 01/14/21 DS: Summary Hospital Course Hospital Course: Admission note HPI A 80 years old lady with PMH of HTN, type 1 diabetes, glaucoma, macular degeneration, osteoporosis among others who presented to the hospital with worsening back and abdominal pain. The patient's reported starting physical therapy almost 3 weeks ago and felt mildly better but during the next week she felt back pain after a neighbor helped her of her bed. Evaluated by her primary seems like who did an MRI showing L2 fracture. Kyphoplasty was suggested as part of treatment but she refused. Her pain did not improve over the last 2 weeks and continue to get worse until today when it was associated with abdominal pain with no nausea, vomiting, diarrhea or urinary symptoms. Admitted for further evaluation and treatment. Hospital course The patient was admitted to the hospital for evaluation worsening back pain. CT scan the back was consistent with L2-T12 compression fracture. Evaluated by intervention radiologist to eventually kyphoplasty with good results. Worked with physical therapist who recommended short-term rehab but the patient preferred to go home. Will discharge home with home therapy. Images was also concerning for pleural effusion and pneumonia. She was treated with IV antibiotics of azithromycin and ceftriaxone in received IV Lasix. She remains on on room air. To be discharged on oral antibiotics of Ceftin and azithromycin. Noticed to have hyponatremia at time of presentation with urine studies suggestive possible SIADH. Evaluated by Nephrology and started on urea with good response as last sodium was 135. To be discharged home on urea and follow- up with Dr. Guzman as outpatient. She has a stable diabetic foot dry ulcer which will need outpatient wound care at discharge. Time Spent with Patient Time attestation: Total time spent providing and/or coordinating discharge services: Discharge coordination time: Greater than 30 minutes Physical Exam Vital Signs: Vital Signs: Last Vital Signs Temp 96.8 F 01/14/21 12:00 Pulse 97 01/14/21 12:00 Resp 16 01/14/21 12:00 BP 125/62 01/14/21 12:00 Pulse Ox 93 01/14/21 12:00 Body Mass Index 21.9 Const: Other: Constitutional : Alert, oriented to self but otherwise comfortable, wearing sunglasses for eye problems. Neck : Normal inspection, Supple Cardiovascular : RRR, S1 S2, no lower extremity edema Respiratory : Good bilateral air entry, no crackles, wheezes or rhonchi Gastrointestinal: soft, lax, Normal bowel sounds, mild generalized tenderness but no surgical signs Skin : Warm/Dry, left lower extremity heel dry ulcer with no drainage noted Neurological : Alert & oriented to self, No focal deficit DS: Data Data Completed and Pending Labs on day of discharge: Laboratory Results - last 24 hr 01/13/21 01/13/21 01/14/21 16:42 20:22 07:20 POC Glucose 91 349 H 137 H 01/14/21 12:01 POC Glucose 280 H Discharge Plan Discharge Patient Disposition: Home Health Service Referrals: [facility] [Outside] Garland Meeks MD [Primary Care Provider] - Discharge Medications: New urea (bulk) 100 % Powder 15 g PO DAILY 30 Days RF: 0 azithromycin 500 mg tablet 500 mg PO DAILY 5 Days Qty: 5 RF: 0 cefuroxime axetil 500 mg tablet 500 mg PO BID Qty: 8 RF: 0 Continued buspirone 5 mg tablet 5 mg PO BID@0900,1700 RF: 0 acetaminophen 325 mg tablet 650 mg PO Q6H PRN (Reason: Pain (Scale Score 1-3)) RF: 0 aspirin 81 mg tablet,delayed release (DR/EC) 81 mg PO DAILY RF: 0 tramadol 50 mg tablet 50 mg PO Q8H PRN (Reason: Pain (Scale Score 4-6)) RF: 0 bupropion HCl 100 mg tablet sustained-release 12 hr 100 mg PO DAILY RF: 0 carvedilol 3.125 mg tablet 3.125 tab PO BID@0900,1700 RF: 0 alprazolam 0.5 mg tablet 0.5 mg PO TID@0900,1700,2100 RF: 0 carboxymethylcellulose sodium [Refresh Tears] 0.5 % Drops 1 drp OPHTHALMIC (EYE) Q4H PRN (Reason: Dry Eyes) RF: 0 insulin aspart U-100 [Novolog U-100 Insulin aspart] 100 unit/mL solution See Protocol unit subcut TIDAC RF: 0 losartan 100 mg tablet 100 mg PO DAILY RF: 0 rosuvastatin 5 mg tablet 5 mg PO Q2D@0900 RF: 0 mirtazapine 7.5 mg tablet 7.5 mg PO BEDTIME RF: 0 Levemir U-100 Insulin 100 unit/mL solution 5 unit subcut BEDTIME RF: 0 Levemir U-100 Insulin 100 unit/mL solution 7 unit subcut DAILY RF: 0 diclofenac sodium 1 % gel 4 g topical QID PRN (Reason: pain) RF: 0 omega 4-wbb-pxm-fish oil [Fish Oil] 1,000 mg (120 mg-180 mg) Capsule 1 cap PO Q2D@0900 RF: 0 Xelpros 0.005 % drops, emulsion 1 drp ophthalmic-Right BEDTIME RF: 0 alprazolam 0.25 mg tablet 0.25 mg PO DAILY@1200 RF: 0 Discharge Orders: Discharge Order (Routine); Ordered 01/14/21 Ordered By: Mignon Hubbard Diet: advance to usual diet Activity on Discharge: As tolerated Stand Alone Forms: Patient Portal Discharge page Care Plan Goals: Read below Health Concerns: Read below Plan of Treatment: Admitted to the hospital for evaluation of worsening back pain. Found to have compression fracture of T12, L2 vertebral Res. Treated with pain medications and had kyphoplasty procedure done with good result. Evaluated by Physical therapy who recommended short-term rehab but you would prefer to go back home therapy at home. You were noticed to have low sodium level. Evaluated by upholstery auto trimmer who started you urea with good response. To continue Ohri at home and to follow-up with Dr. Guzman as outpatient. You were noticed to have pneumonia which was treated with IV antibiotics with good response. To continue azithromycin and Ceftin at home as prescribed. To follow-up with your primary care for further evaluation of osteoporosis with bone scan.
[2021-01-14] MEDS: cefTRIAXone sodium 1 GM in 0.9 % Sodium Chloride 50 ML IV (14:12)
== END 2021-01-14 15:10 | disposition home health service (06) | DRG 515 ==
LOC: HO.ED 13:38 → HO.EDOVER 16:48 → HO.S3 18:55
PROVIDERS: Physician Assistant; Radiology Diagnostic Radiology; Admitting Provider Student in an Organized Health Care Education/Training Program; Emergency Provider Emergency Medicine; PCP Internal Medicine; Visit Provider Student in an Organized Health Care Education/Training Program
PROC: 0QS03ZZ Reposition Lumbar Vertebra, Percutaneous Approach (ICD-10-PCS; principal; 2021-01-12 08:30)
DX: M48.56XA Collapsed vertebra, not elsewhere classified, lumbar region, initial encounter for fracture (principal); G92 Toxic encephalopathy; J18.9 Pneumonia, unspecified organism; N39.0 Urinary tract infection, site not specified; L97.909 Non-pressure chronic ulcer of unspecified part of unspecified lower leg with unspecified severity; E22.2 Syndrome of inappropriate secretion of antidiuretic hormone; J91.8 Pleural effusion in other conditions classified elsewhere; Z20.822 Contact with and (suspected) exposure to COVID-19; F41.9 Anxiety disorder, unspecified; E10.42 Type 1 diabetes mellitus with diabetic polyneuropathy; E10.621 Type 1 diabetes mellitus with foot ulcer; B96.20 Unspecified Escherichia coli [E. coli] as the cause of diseases classified elsewhere; E87.5 Hyperkalemia; K59.00 Constipation, unspecified; Z88.5 Allergy status to narcotic agent; Z79.4 Long term (current) use of insulin; Z79.82 Long term (current) use of aspirin; Z79.899 Other long term (current) drug therapy
CPT/HCPCS: 22513; 22514; 36415; 71250; 72131; 74176; 80048; 80076; 81001; 81003; 82947; 83935; 84295; 84300; 84443; 85025; 85027; 85610; 87086; 87088; 87186; 87635; 93005; 96374; 96375; 97110; 97116; 97162; 97530; 99152; 99153; 99285; J0456; J0696; J1650; J1940; J2270; J3010

== ENCOUNTER 2021-08-25 11:37 | Outpatient (REF) | payer MEDICARE, OTHER, SELFPAY | END 2021-08-25 11:38 | disposition home or self-care (01) | LOC: HO.LAB 11:37 | PROVIDERS: Visit Provider Physician Assistant Medical | DX: Z13.89 Encounter for screening for other disorder (principal) ==

== ENCOUNTER 2022-06-17 17:32 | Outpatient (REF) | payer MEDICARE, OTHER, SELFPAY ==
[2022-06-17 17:37] LABS: MANUAL DIFF FLAG NO
[2022-06-17 18:10] LABS: Basophils Absolute Auto 0.1 X10*3/uL (0.0-0.2); Basophils Percent Auto 1.2 % (0-2); Eosinophils Absolute Auto 0.2 X10*3/uL (0.0-0.4); Eosinophils Percent Auto 4.8 % (0-4); Hematocrit 34.4 % (37.0-47.0); Hemoglobin 11.6 g/dl (12.0-16.0); Lymphocytes Absolute Auto 1.2 X10*3/uL (1.2-4.9); Lymphocytes Percent Auto 23.2 % (20-40); Mean Corpuscular HGB Conc 33.7 g/dl (31.0-35.0); Mean Corpuscular Hemoglobin 31.4 pg (27.0-33.0); Mean Platelet Volume 10.1 fL (9.4-12.3); Monocytes Absolute Auto 0.6 X10*3/uL (0.1-1.2); Monocytes Percent Auto 11.4 % (2-11); Neutrophils Percent Auto 59.4 % (45-73); Platelet Count 229 X10*3/uL (160-400); Red Cell Distribution Width 12.2 % (11.0-16.0)
[2022-06-17 18:30] LABS: Anion Gap 16 (12-20); Blood Urea Nitrogen 28 mg/dL (9-16); C Reactive Protein 0.38 mg/dL (< or = 0.50); Calcium 8.8 mg/dL (8.4-10.2); Carbon Dioxide 27 mmol/L (22-29); Chloride 97 mmol/L (96-108); Estimated Glomerular Filt Rate 41; Glucose Random 186 mg/dL (60-115); Potassium 4.3 mmol/L (3.3-5.1); Sodium 136 mmol/L (135-145)
[2022-06-17 18:31] LABS: Estimated Average Glucose 235 mg/dL; Hemoglobin A1c % 9.8 %
[2022-06-17 18:42] LABS: Erythrocyte Sedimentation Rate 28 MM/HR (0-20)
== END 2022-06-17 17:33 | disposition home or self-care (01) ==
LOC: HO.HVNA 17:32
PROVIDERS: Visit Provider Physician Assistant
DX: E11.9 Type 2 diabetes mellitus without complications (principal); L98.499 Non-pressure chronic ulcer of skin of other sites with unspecified severity
CPT/HCPCS: 36415; 80048; 83036; 84134; 85025; 85652; 86140

== ENCOUNTER 2022-07-22 21:48 | Inpatient (IN) | payer MEDICARE, OTHER, SELFPAY ==
--- NOTE | ~2022-07-22 | XR_ITS ---
EXAMINATION: XR CHEST CLINICAL INFORMATION: Stroke COMPARISON: Previous chest CT December 2020 TECHNIQUE: Frontal view of the chest was obtained. FINDINGS: The cardiac silhouette is enlarged but stable. Hilar and mediastinal contours are unremarkable. There are coarse lung markings and question bronchial wall thickening. No pleural effusion. Old left proximal humerus and right rib fractures. Degenerative changes of the spine and shoulders. Evidence of previous lower thoracic and lumbar vertebroplasty procedure. XR/XR chest 1V IMPRESSION: Stable enlargement of the cardiac silhouette. Coarse lung markings and question bronchial wall thickening.
--- NOTE | ~2022-07-22 | CT_ITS ---
EXAMINATION: CT HEAD WITHOUT CONTRAST (STROKE PROTOCOL) CLINICAL INFORMATION: Stroke protocol. Abnormal speech, altered mental status, weakness COMPARISON: None TECHNIQUE: Contiguous axial imaging was performed from the skull base to vertex without intravenous administration of contrast. This CT examination was performed using dose optimization techniques as appropriate, variously including the following: *Automated exposure control *Adjustment of mA and/or kV according to patient size (this includes techniques or standardized protocols for targeted exams where dose is matched to indication/reason for exam; i.e. extremities or head) *Use of iterative reconstruction technique DLP: 535 mGy-cm FINDINGS: There is no evidence of acute intracranial hemorrhage or territorial infarction. No abnormal mass effect or midline shift is seen. Perez to white matter differentiation is well preserved. No extra-axial fluid collections are identified. No hydrocephalus. Proportional prominence of the ventricles and sulcal spaces is consistent with mild volume loss. Patchy periventricular and deep white matter hypoattenuation is consistent with mild small vessel ischemic changes. No acute osseous or soft tissue abnormality. Intracranial vascular calcifications The mastoid air cells and visualized portions of the paranasal sinuses are well aerated. CT/CT head for stroke IMPRESSION: No acute intracranial pathology. Mild involutional change and chronic microangiopathy. This critical result was discussed with Dr. Zaidi at 10:12 PM hours on 07/22/2022. It was ascertained that the content and urgency of the report was understood at the time of direct communication.
--- NOTE | 2022-07-22 21:57 | ECG_ITS ---
Test Reason : stroke Blood Pressure : / mmHG Vent. Rate : 084 BPM Atrial Rate : 084 BPM P-R Int : 206 ms QRS Dur : 088 ms QT Int : 402 ms P-R-T Axes : 067 012 136 degrees QTc Int : 475 ms Poor data quality, interpretation may be adversely affected Normal sinus rhythm ST & T wave abnormality, consider lateral ischemia Abnormal ECG When compared with ECG of 07-JAN-2021 14:21, Questionable change in QRS axis T wave inversion now evident in Anterolateral leads Referred By: Channing Zaidi Electronically Signed By:VINEET GALO
[2022-07-22 21:58] VITALS: BMI 20.3
--- NOTE | 2022-07-22 21:58 | ED.AMS ---
HPI - Altered Mental Status General Chief Complaint: Stroke Stated Complaint: ams Time Seen by Provider: 07/22/22 21:57 Source: patient, EMS, RN notes reviewed and old records reviewed Mode of arrival: EMS Limitations: altered mental status History of Present Illness HPI narrative: 81-year-old female presents to the emergency department for altered mental status apparently asked her what his age was and she would just repeat his birthday she was unsure who the president was but the time EMS arrived she started improve she does know where she is she knows her date of she knows her stated she does his age she knows that the president is she knows the year is and what the date is where she is at this time. She denies cough fever chest pain nausea vomiting or diarrhea patient was seen sent to CT scan immediately upon arrival. MD complaint: altered mental status Related Data Home Medications Medication Instructions Recorded Confirmed acetaminophen 325 mg tablet 650 mg PO Q6H PRN Pain (Scale 01/07/21 08/25/21 Score 1-3) alprazolam 0.5 mg tablet 0.5 mg PO TID@0900,1700,2100 01/07/21 08/25/21 aspirin 81 mg tablet,delayed 81 mg PO DAILY 01/07/21 08/25/21 release bupropion HCl 100 mg tablet,12 hr 100 mg PO DAILY 01/07/21 08/25/21 sustained-release buspirone 5 mg tablet 5 mg PO BID@0900,1700 01/07/21 08/25/21 carboxymethylcellulose sodium 0.5 1 drp ophthalmic (eye) Q4H PRN Dry 01/07/21 08/25/21 % eye drops (Refresh Tears) Eyes carvedilol 3.125 mg tablet 3.125 tab PO BID@0900,1700 01/07/21 08/25/21 insulin aspart U-100 100 unit/mL See Protocol subcut TIDAC 01/07/21 08/25/21 subcutaneous solution (Novolog U-100 Insulin aspart) insulin detemir U-100 100 unit/mL 7 unit subcut DAILY 01/07/21 08/25/21 subcutaneous solution (Levemir U-100 Insulin) losartan 100 mg tablet 100 mg PO DAILY 01/07/21 08/25/21 mirtazapine 7.5 mg tablet 7.5 mg PO BEDTIME 01/07/21 08/25/21 omega 2-dhq-wff-fish oil 1,000 mg 1 cap PO Q2D@0900 01/07/21 08/25/21 (120 mg-180 mg) capsule (Fish Oil) rosuvastatin 5 mg tablet 5 mg PO Q2D@0900 01/07/21 08/25/21 bumetanide 0.5 mg tablet 0.5 mg PO Q OTHER DAY 08/25/21 08/25/21 netarsudil 0.02 %-latanoprost 1 drp ophthalmic (eye) DAILY 08/25/21 08/25/21 0.005 % eye drops (Rocklatan) famotidine-Ca carb-mag hydrox 10 1 tab PO DAILY PRN 12/18/21 mg-800 mg-165 mg chewable tablet (Pepcid Complete) ferrous sulfate 325 mg (65 mg 325 mg PO DAILY 12/18/21 iron) tablet Previous Rx's Medication Instructions Recorded cephalexin 500 mg capsule 500 mg PO Q8H 7 days #21 caps 04/10/22 cephalexin 500 mg capsule 500 mg PO QID 10 days #40 caps 04/10/22 sulfamethoxazole 800 1 tab PO Q12H 10 days #20 tabs 04/10/22 mg-trimethoprim 160 mg tablet (Bactrim DS) Allergies Allergy/AdvReac Type Severity Reaction Status Date / Time citalopram [Celexa] Allergy Unknown Unknown Verified 04/10/22 14:25 codeine [Codeine] Allergy Unknown ABLE TO Verified 04/10/22 14:25 TAKE IN VERY SMALL AMOUNTS, DIZZY WITH LARGE AMTS doxycycline Allergy Unknown Unknown Verified 04/10/22 14:25 Codeine Allergy Unknown Unknown Uncoded 04/10/22 14:25 Codeine Phosphate Allergy Unknown Unknown Uncoded 04/10/22 14:25 Doxycycline Hyclate Allergy Unknown Unknown Uncoded 04/10/22 14:25 novolin n Allergy Unknown Unknown Uncoded 04/10/22 14:25 Review of Systems Review of Systems: Review of systems: General: Patient denies any fever chills recent illness or falls Musculoskeletal: Denies back pain or body aches or other injuries HEENT: denies headache, runny nose, ear pain Respiratory: denies shortness of breath, cough Cardiovascular: no chest pain or palpitations : denies dysuria, frequency Abdomen: no nausea vomiting denies abdominal pain Extremities: no swelling, no pain Skin: no diaphoresis Yes all other systems are reviewed and are negative [facility] Past Medical History Medical History Constipation Diabetes Diabetic foot ulcer Glaucoma Lumbar compression fracture Macular degeneration Neuropathy Osteopenia Osteoporosis Prolapsed bladder Toe amputee Social History Social History Household Members: Significant Other Housing: [facility] Do you presently have visiting nurse or other home services: No Alcohol intake: never Patient Tobacco Use Status: Never used Tobacco Second Hand Smoke Exposure: No service: No Current occupational status: disabled Physical Exam ED Vital Signs: Vital Signs - 24 hr 07/22/22 22:13 07/22/22 22:16 Temperature 97.6 F Pulse Rate 84 Respiratory Rate 17 Blood Pressure 170/82 H Pulse Oximetry 82 L 99 Oxygen Delivery Method Room Air Nasal Cannula Oxygen Flow Rate 2 BMI result Body Mass Index 20.3 Reviewed in the computer Neurological exam: CN II- XII tested. Patient is alert and oriented to person place and time. Patient has no dysphagia or dysarthia, denies good vision in all four vision kennedy no nystagmus on exam, good strength to upper and lower extremities with normal reflexes to brachioradialis, wrist, patella and achilles.? Negative romberg, good finger to nose and heel to rees.?? General: Well-appearing well-nourished in no signs of distress HEENT: Normocephalic atraumatic? Neck: No signs of JVD, no masses no tenderness or lymphadenopathy Cardiovascular: Regular rate and rhythm Respiratory: Clear to auscultation bilaterally Abdomen: Soft nontender no masses Extremities: Normal pedal pulses no signs of edema Skin: Dry warm no rashes Back: No tenderness full ROM NIH Stroke Scale Internal: Initial- Upon Arrival Level of Consciousness: Alert Level of Consciousness Questions: Answers both questions correctly Level of Consciousness Commands: Performs both tasks correctly Best Gaze: Normal Visual: No visual loss Facial Palsy: Normal Motor Arm (Right): No drift Motor Arm (Left): No drift Motor Leg (Right): No drift Motor Leg (Left): No drift Limb Ataxia: Absent Sensory: Normal Best Language: No aphasia Dysarthia: Normal Extinction and Inattention: No abnormality Score: 0 MDM - Altered Mental Status MDM Narrative Medical decision making narrative: Patient seen immediately upon arrival workup for stroke initially initiated this sounds more like confusion patient was found to be hypoxic into the 80s COVID swabs were sent and a septic workup was initiated. X-ray looks like pneumonia I started the patient on Rocephin azithromycin patient is allergic to doxycycline. I will give the patient fluids Covid is negative started on oxygen for hypoxia and given antibiotics for pneumonia I will admit to medicine. Differential Diagnosis Differential diagnosis: Likely altered mental status, delirium, encephalopathy, hyponatremia, overdose polysubstance, subarachnoid hemorrhage, sepsis, sepsis and seizures Medical Records Attestation: I reviewed the patient's medical records. Lab Data Attestation: I reviewed the patient's lab results. Result diagrams: 07/22/22 22:07 07/22/22 22:07 Labs: Lab Results 07/22/22 07/22/22 07/22/22 Range/Units 22:03 22:04 22:07 WBC 5.5 (4.8-10.8) X10*3/uL RBC 3.94 L (4.20-5.50) X10*6/uL Hgb 12.3 (12.0-16.0) g/dl Hct 36.1 L (37.0-47.0) % MCV 91.6 (80.0-98.0) fL MCH 31.2 (27.0-33.0) pg MCHC 34.1 (31.0-35.0) g/dl RDW 11.6 (11.0-16.0) % Plt Count 238 (160-400) X10*3/uL MPV 9.6 (9.4-12.3) fL Immature Gran % (Auto) 0.4 (0.0-0.4) % Neut % (Auto) 49.2 (45-73) % Lymph % (Auto) 31.9 (20-40) % Hendricks % (Auto) 11.9 H (2-11) % Eos % (Auto) 5.7 H (0-4) % Baso % (Auto) 0.9 (0-2) % Lymph # (Auto) 1.7 (1.2-4.9) X10*3/uL Hendricks # (Auto) 0.7 (0.1-1.2) X10*3/uL Eos # (Auto) 0.3 (0.0-0.4) X10*3/uL Baso # (Auto) 0.1 (0.0-0.2) X10*3/uL Abs Immat Gran (auto) 0.02 (0.00-0.03) X10*3/uL Absolute Neuts (auto) 2.7 (2.0-8.3) x10*3/uL Absolute Nucleated RBC 0.000 (0.0-0.012) X10*3/uL Nucleated RBC % (auto) 0.0 (0.0-0.2) /100WBC Whole Blood PT 11.9 (11.1-13.5) sec Whole Blood INR 1.0 (0.9-1.1) Sodium (135-145) mmol/L Potassium (3.3-5.1) mmol/L Chloride (96-108) mmol/L Carbon Dioxide (22-29) mmol/L Anion Gap (12-20) BUN (9-16) mg/dL Creatinine (0.5-1.4) mg/dL Estim Creat Clear Calc Estimated GFR POC Glucose 120 H (60-115) mg/dL Random Glucose (60-115) mg/dL Calcium (8.4-10.2) mg/dL Total Bilirubin (0.0-1.0) mg/dL Direct Bilirubin (0.0-0.5) mg/dL AST (5-31) U/L ALT (0-31) U/L Alkaline Phosphatase (39-117) U/L Troponin I High Sens (<3.5-17.0) ng/L Total Protein (6.5-8.0) g/dL Albumin (3.5-5.0) g/dL Lipase (8-78) U/L COVID-19 (LILLY) (Negative) COVID-19 Clin Com 07/22/22 07/22/22 07/22/22 Range/Units 22:07 22:07 22:07 WBC (4.8-10.8) X10*3/uL RBC (4.20-5.50) X10*6/uL Hgb (12.0-16.0) g/dl Hct (37.0-47.0) % MCV (80.0-98.0) fL MCH (27.0-33.0) pg MCHC (31.0-35.0) g/dl RDW (11.0-16.0) % Plt Count (160-400) X10*3/uL MPV (9.4-12.3) fL Immature Gran % (Auto) (0.0-0.4) % Neut % (Auto) (45-73) % Lymph % (Auto) (20-40) % Hendricks % (Auto) (2-11) % Eos % (Auto) (0-4) % Baso % (Auto) (0-2) % Lymph # (Auto) (1.2-4.9) X10*3/uL Hendricks # (Auto) (0.1-1.2) X10*3/uL Eos # (Auto) (0.0-0.4) X10*3/uL Baso # (Auto) (0.0-0.2) X10*3/uL Abs Immat Gran (auto) (0.00-0.03) X10*3/uL Absolute Neuts (auto) (2.0-8.3) x10*3/uL Absolute Nucleated RBC (0.0-0.012) X10*3/uL Nucleated RBC % (auto) (0.0-0.2) /100WBC Whole Blood PT (11.1-13.5) sec Whole Blood INR (0.9-1.1) Sodium 133 L (135-145) mmol/L Potassium 4.3 (3.3-5.1) mmol/L Chloride 97 (96-108) mmol/L Carbon Dioxide 24 (22-29) mmol/L Anion Gap 16 (12-20) BUN 25 H (9-16) mg/dL Creatinine 1.06 (0.5-1.4) mg/dL Estim Creat Clear Calc 40.0 Estimated GFR 50 POC Glucose (60-115) mg/dL Random Glucose 131 H (60-115) mg/dL Calcium 8.6 (8.4-10.2) mg/dL Total Bilirubin < 0.2 (0.0-1.0) mg/dL Direct Bilirubin < 0.2 (0.0-0.5) mg/dL AST 26 (5-31) U/L ALT 10 (0-31) U/L Alkaline Phosphatase 123 H (39-117) U/L Troponin I High Sens 13.9 (<3.5-17.0) ng/L Total Protein 7.2 (6.5-8.0) g/dL Albumin 3.8 (3.5-5.0) g/dL Lipase 6 L (8-78) U/L COVID-19 (LILLY) Negative (Negative) COVID-19 Clin Com See Note ECG Data ECG #1: ECG interpretation date: 07/22/22 ECG interpretation time: 22:39 Prior ECG tracings: available for review Interpretation: Rate 84 normal sinus rhythm normal intervals no signs of ischemia Critical Care Time Critical Care Time Critical Care Time: Yes Total Critical Care Time: 35 Attestation: Patient presented as a stroke and then had ended being more of an altered mental status case that resolved on arrival we did a complete workup could x-ray and labs. found to be hypoxic and treated for pneumonia Discharge Plan Discharge Clinical Impression: Hypoxia, Pneumonia, Altered mental status Patient Disposition: Admitted As Inpatient Prescriptions: No Action buspirone 5 mg tablet 5 mg PO BID@0900,1700 acetaminophen 325 mg tablet 650 mg PO Q6H PRN (Reason: Pain (Scale Score 1-3)) aspirin 81 mg tablet,delayed release (DR/EC) 81 mg PO DAILY bupropion HCl 100 mg tablet sustained-release 12 hr 100 mg PO DAILY carvedilol 3.125 mg tablet 3.125 tab PO BID@0900,1700 alprazolam 0.5 mg tablet 0.5 mg PO TID@0900,1700,2100 carboxymethylcellulose sodium [Refresh Tears] 0.5 % Drops 1 drp OPHTHALMIC (EYE) Q4H PRN (Reason: Dry Eyes) insulin aspart U-100 [Novolog U-100 Insulin aspart] 100 unit/mL solution See Protocol subcut TIDA Protocol: Insulin Correction Scale Less than or equal to 110 ---- Give (units): 0 111 to 150 Give (units): 0 151 to 200 Give (units): 2 201 to 250 Give (units): 4 251 to 300 Give (units): 6 301 to 350 Give (units): 8 Greater than 350 Give (units): 10 Call MD if Blood Glucose > : 350 losartan 100 mg tablet 100 mg PO DAILY rosuvastatin 5 mg tablet 5 mg PO Q2D@0900 mirtazapine 7.5 mg tablet 7.5 mg PO BEDTIME Levemir U-100 Insulin 100 unit/mL solution 7 unit subcut DAILY omega 3-rzx-fgc-fish oil [Fish Oil] 1,000 mg (120 mg-180 mg) Capsule 1 cap PO Q2D@0900 ferrous sulfate 325 mg (65 mg iron) tablet 325 mg PO DAILY Pepcid Complete 10-800-165 mg tablet,chewable 1 tab PO DAILY PRN cephalexin 500 mg capsule 500 mg PO Q8H 7 Days Qty: 21 0RF sulfamethoxazole-trimethoprim [Bactrim DS] 800-160 mg tablet 1 tab PO Q12H 10 Days Qty: 20 0RF Rx Instructions: Infection and recent exposure to MRSA cephalexin 500 mg capsule 500 mg PO QID 10 Days Qty: 40 0RF Rocklatan 0.02-0.005 % drops 1 drp ophthalmic (eye) DAILY bumetanide 0.5 mg tablet 0.5 mg PO Q OTHER DAY
[2022-07-22 22:08] LABS: Prothrombin Time Whole Bld POC 11.9 sec (11.1-13.5)
[2022-07-22 22:09] LABS: Glucose, Whole Blood 120 mg/dL (60-115)
[2022-07-22 22:13] VITALS: BP 170/82; PULSE 84; RESP 17; TEMP 36.4; O2SAT 82
[2022-07-22 22:16] VITALS: O2SAT 99
[2022-07-22 22:17] LABS: MANUAL DIFF FLAG NO
[2022-07-22 22:23] LABS: Basophils Absolute Auto 0.1 X10*3/uL (0.0-0.2); Basophils Percent Auto 0.9 % (0-2); Eosinophils Absolute Auto 0.3 X10*3/uL (0.0-0.4); Eosinophils Percent Auto 5.7 % (0-4); Hematocrit 36.1 % (37.0-47.0); Hemoglobin 12.3 g/dl (12.0-16.0); Imm Gran Abs Auto 0.02 X10*3/uL (0.00-0.03); Imm Gran Pct Auto 0.4 % (0.0-0.4); Lymphocytes Absolute Auto 1.7 X10*3/uL (1.2-4.9); Lymphocytes Percent Auto 31.9 % (20-40); Mean Corpuscular HGB Conc 34.1 g/dl (31.0-35.0); Mean Corpuscular Hemoglobin 31.2 pg (27.0-33.0); Mean Corpuscular Volume 91.6 fL (80.0-98.0); Mean Platelet Volume 9.6 fL (9.4-12.3); Monocytes Absolute Auto 0.7 X10*3/uL (0.1-1.2); Monocytes Percent Auto 11.9 % (2-11); Neutrophils Absolute Auto 2.7 x10*3/uL (2.0-8.3); Neutrophils Percent Auto 49.2 % (45-73); Platelet Count 238 X10*3/uL (160-400); Red Blood Count 3.94 X10*6/uL (4.20-5.50); Red Cell Distribution Width 11.6 % (11.0-16.0); White Blood Count 5.5 X10*3/uL (4.8-10.8)
[2022-07-22] MEDS: 0.9 % Sodium Chloride 1,000 ML 999 ML IV (22:24)
[2022-07-22] MEDS: Aspirin 81 MG TAB.CHEW 324 MG PO (22:27)
[2022-07-22 22:39] LABS: Alanine Aminotransferase 10 U/L (0-31); Albumin Level 3.8 g/dL (3.5-5.0); Alkaline Phosphatase 123 U/L (39-117); Anion Gap 16 (12-20); Aspartate Amino Transferase 26 U/L (5-31); Bilirubin Direct < 0.2 mg/dL (0.0-0.5); Bilirubin Total < 0.2 mg/dL (0.0-1.0); Blood Urea Nitrogen 25 mg/dL (9-16); COVID-19 Test Negative (Negative); Calcium 8.6 mg/dL (8.4-10.2); Carbon Dioxide 24 mmol/L (22-29); Chloride 97 mmol/L (96-108); Estimated Glomerular Filt Rate 50; Glucose Random 131 mg/dL (60-115); Lipase 6 U/L (8-78); Potassium 4.3 mmol/L (3.3-5.1); Sodium 133 mmol/L (135-145); Total Protein 7.2 g/dL (6.5-8.0); Troponin-I High Sensitivity 13.9 ng/L (<3.5-17.0)
[2022-07-22] MEDS: cefTRIAXone sodium 1 GM in 0.9 % Sodium Chloride 50 ML IV (22:51)
[2022-07-22 23:13] LABS: Lactic Acid 0.9 mmol/L (0.5-2.0)
--- NOTE | 2022-07-22 23:13 | P.HPHOSP_ITS ---
History of Present Illness Date of Service: 07/22/22 Chief Complaint: confused Seven 11-year-old female with past medical history of anxiety depression, diabetes, chronic diabetic foot ulcer, comes into the hospital after boyfriend noticed her to have an episode of confusion. He reports that she was eating dinner with him on although sinus she got up out of a seated position a started pacing around the room not making any sense. When asked list with the patient she reports that she does remember the incident but she felt very hot and she wanted to walk around her house. She reports not feeling well for the past few days, having increased phlegm, reports increased urinary retention, she has a chronic bladder prolapse and has to use her thumb to allow herself to urinate but reports that she has gotten harder for the past 1 day. otherwise denies any headache, no change in vision, no numbness tingling or weakness in her arms or legs, no difficulty in speech, no facial droop, she has chronic drooping of her left eyelid but had lost change, change in vision, headache. On arrival to the ED patient hemodynamically stable but noted to be hypoxic on room air satting 82%. Currently on 2 L satting 92% Labs are significant for WBC count of 5.5, normal lactic acid, UA positive for large leukocyte Estrace and WBC Chest x-ray shows possible bronchial wall thickening concerning for pneumonia Review of Systems Review of Systems: Yes all other systems are reviewed and are negative [facility] Medical History Constipation Diabetes Diabetic foot ulcer Glaucoma Lumbar compression fracture Macular degeneration Neuropathy Osteopenia Osteoporosis Prolapsed bladder Toe amputee Family History (Updated 07/23/22 @ 06:18 by Cody Sellers MD) Other No family history of coronary artery disease Social History Household Members: Significant Other Housing: Condominium Do you presently have visiting nurse or other home services: No Alcohol intake: never Patient Tobacco Use Status: Never used Tobacco Second Hand Smoke Exposure: No Advance Directives: No service: No Current occupational status: disabled Meds Allergies Allergy/AdvReac Type Severity Reaction Status Date / Time citalopram [Celexa] Allergy Unknown Unknown Verified 04/10/22 14:25 codeine [Codeine] Allergy Unknown ABLE TO Verified 04/10/22 14:25 TAKE IN VERY SMALL AMOUNTS, DIZZY WITH LARGE AMTS doxycycline Allergy Unknown Unknown Verified 04/10/22 14:25 Codeine Allergy Unknown Unknown Uncoded 04/10/22 14:25 Codeine Phosphate Allergy Unknown Unknown Uncoded 04/10/22 14:25 Doxycycline Hyclate Allergy Unknown Unknown Uncoded 04/10/22 14:25 novolin n Allergy Unknown Unknown Uncoded 04/10/22 14:25 Active Medications: Current Medications Acetaminophen (Acetaminophen 325 Mg Tablet) 650 mg PO Q6H PRN PRN Reason: Pain, Mild (Pain Scale 1-3) Docusate Sodium (Docusate Sodium 100 Mg Capsule) 100 mg PO DAILY PRN PRN Reason: Constipation Glucose (Glucose Gel 15 Gm Gel..Gram.) 15 gm PO Q15M PRN; Protocol PRN Reason: per Hypoglycemia Standing Ord. Heparin Sodium (Porcine) (Heparin Sodium,Porcine 5,000 Unit/Ml Vial) 5,000 unit SUBCUT Q12H [facility] Sodium Chloride (Ns) 1,000 mls @ 999 mls/hr IV .Q1H1M [facility] Stop: 07/22/22 23:45 Azithromycin 500 mg/ Sodium (Chloride) 250 mls @ 125 mls/hr IV ONCE ONE Stop: 07/23/22 00:35 Ceftriaxone Sodium 1 gm/ (Sodium Chloride) 50 mls @ 100 mls/hr IV Q24H [facility] Azithromycin 500 mg/ Sodium (Chloride) 250 mls @ 125 mls/hr IV Q24H [facility] Insulin Human Lispro (Insulin Lispro 100 Unit/Ml 3 Ml Vial) 0 unit SUBCUT QIDACHS [facility]; Protocol Ondansetron HCl (Ondansetron Hcl 4 Mg/2 Ml Vial) 4 mg IVPUSH Q8H PRN PRN Reason: Nausea and Vomiting Pharmacy Consult (Consult Rx Perform Med Rec) 1 each MISCELLANE ONCE PRN PRN Reason: Consult order Sodium Chloride (0.9 % Sodium Chloride Flush 3 Ml Syringe) 3 ml IVFLUSH QSHIFT [facility] Home Medications Medication Instructions Recorded Confirmed Last Taken Type acetaminophen 325 mg tablet 650 mg PO Q6H PRN Pain (Scale 01/07/21 08/25/21 Unknown History Score 1-3) alprazolam 0.5 mg tablet 0.5 mg PO TID@0900,1700,2100 01/07/21 08/25/21 01/07/21 History aspirin 81 mg tablet,delayed 81 mg PO DAILY 01/07/21 08/25/21 01/07/21 History release bupropion HCl 100 mg tablet,12 hr 100 mg PO DAILY 01/07/21 08/25/21 01/07/21 History sustained-release buspirone 5 mg tablet 5 mg PO BID@0900,1700 01/07/21 08/25/21 01/07/21 History carboxymethylcellulose sodium 0.5 1 drp ophthalmic (eye) Q4H PRN Dry 01/07/21 08/25/21 Unknown History % eye drops (Refresh Tears) Eyes carvedilol 3.125 mg tablet 3.125 tab PO BID@0900,1700 01/07/21 08/25/21 01/07/21 History insulin aspart U-100 100 unit/mL See Protocol subcut TIDAC 01/07/21 08/25/21 01/07/21 History subcutaneous solution (Novolog U-100 Insulin aspart) insulin detemir U-100 100 unit/mL 7 unit subcut DAILY 01/07/21 08/25/21 01/07/21 History subcutaneous solution (Levemir U-100 Insulin) losartan 100 mg tablet 100 mg PO DAILY 01/07/21 08/25/21 01/07/21 History mirtazapine 7.5 mg tablet 7.5 mg PO BEDTIME 01/07/21 08/25/21 01/06/21 History omega 5-rvx-lob-fish oil 1,000 mg 1 cap PO Q2D@89901/07/21 08/25/21 01/07/21 History (120 mg-180 mg) capsule (Fish Oil) rosuvastatin 5 mg tablet 5 mg PO Q2D@0900 01/07/21 08/25/21 01/07/21 History bumetanide 0.5 mg tablet 0.5 mg PO Q OTHER DAY 08/25/21 08/25/21 Unknown History netarsudil 0.02 %-latanoprost 1 drp ophthalmic (eye) DAILY 08/25/21 08/25/21 Unknown History 0.005 % eye drops (Rocklatan) famotidine-Ca carb-mag hydrox 10 1 tab PO DAILY PRN 12/18/21 Unknown History mg-800 mg-165 mg chewable tablet (Pepcid Complete) ferrous sulfate 325 mg (65 mg 325 mg PO DAILY 12/18/21 Unknown History iron) tablet Physical Exam Vital Signs and Narrative: Vital Signs: Last Vital Signs Temp 97.6 F 07/22/22 22:13 Pulse 84 07/22/22 22:13 Resp 17 07/22/22 22:13 BP 170/82 H 07/22/22 22:13 Pulse Ox 99 07/22/22 22:16 O2 Del Method 07/22/22 22:16 O2 Flow Rate 2 07/22/22 22:16 BMI result Body Mass Index 20.3 Const: General: cooperative and no acute distress Orientation/consciousness: patient oriented x3 Eyes: Other: Left eyelid drooping, according to the patient is chronic General: appearance normal, both eyes and all related structures Resp: Other: Mild rhonchi bilaterally Effort & Inspection: normal respiratory effort Cardio: Rate: regular rate Rhythm: regular rhythm GI: Palpation (GI): Soft to palpation Auscultation: normal bowel sounds Skin: General skin exam: no rashes or lesions noted Neuro: Other: No neurological deficits, strength 5/5 in all extremities, no speech deficits, cranial nerves 3 out of 12 intact, patient has chronic drooping of left eyelid due to surgery eye surgery it has not changed General: patient oriented x3 Cognition (Neuro): normal cognition Extrem: General: Yes normal to inspection and Yes no pedal edema Results Labs CBC and Chem 7: 07/22/22 22:07 07/22/22 22:07 Labs: Laboratory Results - last 24 hr 07/22/22 07/22/22 07/22/22 22:03 22:04 22:07 MCV 91.6 MCH 31.2 MCHC 34.1 RDW 11.6 Plt Count 238 MPV 9.6 Immature Gran % (Auto) 0.4 Neut % (Auto) 49.2 Lymph % (Auto) 31.9 [place] % (Auto) 11.9 H Eos % (Auto) 5.7 H Baso % (Auto) 0.9 Lymph # (Auto) 1.7 [place] # (Auto) 0.7 Eos # (Auto) 0.3 Baso # (Auto) 0.1 Abs Immat Gran (auto) 0.02 Absolute Neuts (auto) 2.7 Absolute Nucleated RBC 0.000 Nucleated RBC % (auto) 0.0 Whole Blood PT 11.9 Whole Blood INR 1.0 Anion Gap Estim Creat Clear Calc Estimated GFR POC Glucose 120 H Random Glucose Lactic Acid Calcium Total Bilirubin Direct Bilirubin AST ALT Alkaline Phosphatase Troponin I High Sens Total Protein Albumin Lipase COVID-19 ([facility]) COVID-19 Clin Com 07/22/22 07/22/22 07/22/22 22:07 22:07 22:07 MCV MCH MCHC RDW Plt Count MPV Immature Gran % (Auto) Neut % (Auto) Lymph % (Auto) [place] % (Auto) Eos % (Auto) Baso % (Auto) Lymph # (Auto) [place] # (Auto) Eos # (Auto) Baso # (Auto) Abs Immat Gran (auto) Absolute Neuts (auto) Absolute Nucleated RBC Nucleated RBC % (auto) Whole Blood PT Whole Blood INR Anion Gap 16 Estim Creat Clear Calc 40.0 Estimated GFR 50 POC Glucose Random Glucose 131 H Lactic Acid Calcium 8.6 Total Bilirubin < 0.2 Direct Bilirubin < 0.2 AST 26 ALT 10 Alkaline Phosphatase 123 H Troponin I High Sens 13.9 Total Protein 7.2 Albumin 3.8 Lipase 6 L COVID-19 ([facility]) Negative COVID-19 Clin Com See Note 07/22/22 22:45 MCV MCH MCHC RDW Plt Count MPV Immature Gran % (Auto) Neut % (Auto) Lymph % (Auto) [place] % (Auto) Eos % (Auto) Baso % (Auto) Lymph # (Auto) [place] # (Auto) Eos # (Auto) Baso # (Auto) Abs Immat Gran (auto) Absolute Neuts (auto) Absolute Nucleated RBC Nucleated RBC % (auto) Whole Blood PT Whole Blood INR Anion Gap Estim Creat Clear Calc Estimated GFR POC Glucose Random Glucose Lactic Acid 0.9 Calcium Total Bilirubin Direct Bilirubin AST ALT Alkaline Phosphatase Troponin I High Sens Total Protein Albumin Lipase COVID-19 ([facility]) COVID-19 Clin Com Imaging Radiologist's Impressions: Impressions Head CT 07/22/22 21:59 IMPRESSION: No acute intracranial pathology. Mild involutional change and chronic microangiopathy. This critical result was discussed with Dr. Zaidi at 10:12 PM hours on 07/22/2022. It was ascertained that the content and urgency of the report was understood at the time of direct communication. Chest X-Ray 07/22/22 22:30 IMPRESSION: Stable enlargement of the cardiac silhouette. Coarse lung markings and question bronchial wall thickening. Assessment and Plan (1) Acute respiratory failure with hypoxia: Status: Acute (2) Pneumonia: Status: Acute (3) Altered mental status: Status: Acute (4) UTI (urinary tract infection): Status: Acute Plan 81-year-old female with past medical history anxiety depression, diabetes, presents to the hospital when her boyfriend noticed some altered mentation # acute encephalopathy - currently awake alert, oriented to self place and time as well as situation - the episode likely secondary to acute infection given her UTI as well pneumonia - his CT negative - has no neurological deficits - at this time will treat underlying infection and monitor mentation # acute hypoxic respiratory failure - secondary to pneumonia - COVID-19 negative - extensive viral panel pending - continue O2 supplement as needed - titrate O2 as tolerated # pneumonia - has hypoxic respiratory failure as well as evidence of bronchial wall thickening on chest x-ray - afebrile, no leukocytosis - will treat with antibiotics - follow viral panel - follow blood cultures # UTI - positive UA - has increased urinary retention - history of bladder prolapse - treat with IV antibiotics - follow cultures # diabetes - low-dose sliding scale insulin - diabetic diet # hypertension - stable - continue antihypertensives # anxiety and depression - will continue home medications Patient does not know her doses therefore med rec was not able to be done by nurse, will consult pharmacy for a.m. DVT prophylaxis: Lovenox Pt will require a minimum 2 night hospital stay for IV antibiotics, oxygen supplement Quality Stroke Does the patient have a stroke diagnosis?: No VTE Prior VTE?: No VTE Risk Level:: Medical - moderate - high VTE Device Contraindication: Treatment Not Indicated VTE Drug Contraindication: N/A - Med Ordered
[2022-07-22] MEDS: Azithromycin 500 MG in 0.9 % Sodium Chloride 250 ML 125 MG IV (23:20)
[2022-07-22 23:23] VITALS: BP 109/68; PULSE 80; RESP 18; O2SAT 96
[2022-07-22 23:44] LABS: Appearance Urine Clear; Color Urine Yellow; Glucose Urine UA Negative (Negative); Leukocyte Esterase Urine Large (3+) (Negative); Nitrite Urine Negative (Negative); PH 7.5 (5.0-9.0); Specific Gravity - Urine <= 1.005 (1.005-1.025); UMIC TRIGGER UACC YES; Urine Blood Small (1+) (Negative); Urine Ketones Negative (Negative); Urine Protein 30 (1+) mg/dL (Neg-Trace)
[2022-07-22 23:55] LABS: Bacteria Urine 1+ (None Seen); Hyaline Casts Urine 0-2 /LPF (0-2); UACC Culture Trigger YES
[2022-07-23] VITALS (14 sets, daily range): BP systolic 97–179; BP diastolic 53–92; PULSE 79–95; RESP 14–19; TEMP 36.1–37.2; O2SAT 92–100
[2022-07-23] MEDS: 0.9 % Sodium Chloride 1,000 ML 999 ML IV (00:15)
[2022-07-23] MEDS: Heparin Sodium,Porcine 5,000 UNIT/ML VIAL 5000 UNIT SUBCUT ×3 (00:15→22:54)
[2022-07-23] MEDS: 0.9 % Sodium Chloride Flush 3 ML SYRINGE IVFLUSH ×4 (00:48→20:57)
[2022-07-23] MEDS: Mirtazapine 7.5 MG TABLET PO ×2 (01:09→20:56)
[2022-07-23] MEDS: ALPRAZolam 0.5 MG TABLET PO ×3 (01:09→20:56)
[2022-07-23 06:59] LABS: MANUAL DIFF FLAG NO
[2022-07-23 07:01] LABS: Basophils Absolute Auto 0.1 X10*3/uL (0.0-0.2); Eosinophils Absolute Auto 0.2 X10*3/uL (0.0-0.4); Eosinophils Percent Auto 3.5 % (0-4); Hemoglobin 12.6 g/dl (12.0-16.0); Imm Gran Abs Auto 0.02 X10*3/uL (0.00-0.03); Imm Gran Pct Auto 0.4 % (0.0-0.4); Lymphocytes Absolute Auto 1.2 X10*3/uL (1.2-4.9); Lymphocytes Percent Auto 25.5 % (20-40); Mean Corpuscular HGB Conc 33.2 g/dl (31.0-35.0); Mean Corpuscular Hemoglobin 30.7 pg (27.0-33.0); Mean Corpuscular Volume 92.5 fL (80.0-98.0); Mean Platelet Volume 9.8 fL (9.4-12.3); Monocytes Absolute Auto 0.4 X10*3/uL (0.1-1.2); Monocytes Percent Auto 8.4 % (2-11); Neutrophils Percent Auto 61.2 % (45-73); Platelet Count 224 X10*3/uL (160-400); Red Blood Count 4.11 X10*6/uL (4.20-5.50); Red Cell Distribution Width 11.7 % (11.0-16.0); White Blood Count 4.9 X10*3/uL (4.8-10.8)
[2022-07-23 07:22] LABS: Anion Gap 15 (12-20); Blood Urea Nitrogen 18 mg/dL (9-16); Calcium 8.6 mg/dL (8.4-10.2); Carbon Dioxide 27 mmol/L (22-29); Chloride 101 mmol/L (96-108); Creatinine Clr Calc Pharmacy 47.2; Estimated Glomerular Filt Rate > 60; Glucose Random 174 mg/dL (60-115); Potassium 4.2 mmol/L (3.3-5.1); Sodium 139 mmol/L (135-145)
[2022-07-23 07:33] LABS: Glucose, Whole Blood 180 mg/dL (60-115)
[2022-07-23] MEDS: Insulin Lispro 100 UNIT/ML 3 ML VIAL SUBCUT ×4 (07:44→20:56)
--- NOTE | 2022-07-23 10:19 | PHA.MEDREC ---
Pharmacy Consult ? Medication Reconciliation Pharmacy has completed the medication reconciliation. spoke with patient in the ed
[2022-07-23 12:00] LABS: Glucose, Whole Blood 292 mg/dL (60-115)
--- NOTE | 2022-07-23 14:24 | HO.PM.IMPN ---
Subjective Subjective Date of Service: 07/23/22 Interval History: Toxic metabolic encephalopathy, pneumonia. Review of Systems Mental status and shortness of breath slowly improving Denies any chest pain or abdominal pain or nausea or vomiting Has dry cough, no fever Physical Exam Vital Signs: Vital Signs: Last Vital Signs Temp 98.4 F 07/23/22 11:15 Pulse 86 07/23/22 13:40 Resp 14 07/23/22 11:15 BP 143/67 H 07/23/22 13:40 Pulse Ox 98 07/23/22 13:40 O2 Del Method 07/23/22 11:15 O2 Flow Rate 2 07/23/22 11:15 BMI result Body Mass Index 20.3 Appearance: Awake and more alert, answering simple questions cvs: [id number], [id number] , no murmur res: Air entry diminished at bases, no rales or wheezing. abd: no rebound or guarding ,nt, bs present. ext pulses present , no cyanosis . neuro:nonfocal. Objective Data Active Medications Acetaminophen (Acetaminophen 325 Mg Tablet) 650 mg PO Q6H PRN PRN Reason: Pain (Scale Score 1-3) Alprazolam (Alprazolam 0.5 Mg Tablet) 0.5 mg PO TID@0900,1700,2100 [facility] Artificial Tears (Artificial Tears 15 Ml Drops) 1 drop EYE-BOTH Q4H PRN PRN Reason: Dry Eyes Aspirin (Aspirin Enteric Coated 81 Mg Tablet.) 81 mg PO DAILY@1200 [facility] Atorvastatin Calcium (Atorvastatin Calcium 20 Mg Tablet) 20 mg PO Q2D@1700 [facility] Bumetanide (Bumetanide 1 Mg Tablet) 0.5 mg PO Q4D [facility]; Protocol Buspirone HCl (Buspirone Hcl 5 Mg Tablet) 5 mg PO BID@0900,1700 [facility] Carvedilol (Carvedilol 3.125 Mg Tablet) 3.125 mg PO BID@0900,1700 [facility]; Protocol Dextrose (Dextrose 50 % 25 Gm/50 Ml Syringe) 25 gm IVPUSH Q15M PRN; Protocol PRN Reason: per Hypoglycemia Standing Ord. Docusate Sodium (Docusate Sodium 100 Mg Capsule) 100 mg PO DAILY PRN PRN Reason: Constipation Ferrous Sulfate (Ferrous Sulfate 324 Mg Tablet.) 324 mg PO Q2D@0900 [facility] Glucose (Glucose Gel 15 Gm Gel..Gram.) 15 gm PO Q15M PRN; Protocol PRN Reason: per Hypoglycemia Standing Ord. Heparin Sodium (Porcine) (Heparin Sodium,Porcine 5,000 Unit/Ml Vial) 5,000 unit SUBCUT Q12H [facility] Last Admin: 07/23/22 13:43 Dose: 5,000 unit Documented By: TAMIKO Ceftriaxone Sodium 1 gm/ (Sodium Chloride) 50 mls @ 100 mls/hr IV Q24H [facility] Azithromycin 500 mg/ Sodium (Chloride) 250 mls @ 125 mls/hr IV Q24H [facility] Insulin Human Lispro (Insulin Lispro 100 Unit/Ml 3 Ml Vial) 0.1 - 10 unit SUBCUT QIDACHS [facility]; Protocol Last Admin: 07/23/22 13:43 Dose: 6 unit Documented By: TAMIKO Losartan Potassium (Losartan Potassium 50 Mg Tablet) 100 mg PO DAILY [facility]; Protocol Mirtazapine (Mirtazapine 7.5 Mg Tablet) 7.5 mg PO BEDTIME [facility] Non-Formulary Medication (Bupropion Hcl) 100 mg PO DAILY [facility] Non-Formulary Medication (Netarsudil-Latanoprost [Rocklatan]) 1 drop EYE-RIGHT BEDTIME [facility] Nystatin (Nystatin Ointment 15 Gm Tube) 1 appl TOPICAL BID PRN; Protocol PRN Reason: Rash Ondansetron HCl (Ondansetron Hcl 4 Mg/2 Ml Vial) 4 mg IVPUSH Q8H PRN PRN Reason: Nausea and Vomiting Pharmacy Consult (Consult Rx Perform Med Rec) 1 each MISCELLANE ONCE PRN PRN Reason: Consult order Sodium Chloride (0.9 % Sodium Chloride Flush 3 Ml Syringe) 3 ml IVFLUSH QSHIFT [facility] Last Admin: 07/23/22 07:45 Dose: 3 ml Documented By: TAMIKO Vitamin D (Cholecalciferol (Vitamin D3) 25 Mcg Tablet) 25 mcg PO DAILY [facility] Labs CBC & Chem 7: 07/23/22 06:35 07/23/22 06:35 Labs: Laboratory Results - last 24 hr 07/22/22 07/22/22 07/22/22 22:03 22:04 22:07 MCV 91.6 MCH 31.2 MCHC 34.1 RDW 11.6 Plt Count 238 MPV 9.6 Immature Gran % (Auto) 0.4 Neut % (Auto) 49.2 Lymph % (Auto) 31.9 [place] % (Auto) 11.9 H Eos % (Auto) 5.7 H Baso % (Auto) 0.9 Lymph # (Auto) 1.7 [place] # (Auto) 0.7 Eos # (Auto) 0.3 Baso # (Auto) 0.1 Abs Immat Gran (auto) 0.02 Absolute Neuts (auto) 2.7 Absolute Nucleated RBC 0.000 Nucleated RBC % (auto) 0.0 Whole Blood PT 11.9 Whole Blood INR 1.0 Anion Gap Estim Creat Clear Calc Estimated GFR POC Glucose 120 H Random Glucose Lactic Acid Calcium Total Bilirubin Direct Bilirubin AST ALT Alkaline Phosphatase Troponin I High Sens Total Protein Albumin Lipase Urine Color Urine Appearance Urine pH Ur Specific [place] Urine Protein Urine Glucose (UA) Urine Ketones Urine Blood Urine Nitrite Ur Leukocyte Esterase Urine RBC Urine WBC Ur Squamous Epith Cells Urine Bacteria Hyaline Casts COVID-19 ([facility]) COVID-19 Clin Com 07/22/22 07/22/22 07/22/22 22:07 22:07 22:07 MCV MCH MCHC RDW Plt Count MPV Immature Gran % (Auto) Neut % (Auto) Lymph % (Auto) [place] % (Auto) Eos % (Auto) Baso % (Auto) Lymph # (Auto) [place] # (Auto) Eos # (Auto) Baso # (Auto) Abs Immat Gran (auto) Absolute Neuts (auto) Absolute Nucleated RBC Nucleated RBC % (auto) Whole Blood PT Whole Blood INR Anion Gap 16 Estim Creat Clear Calc 40.0 Estimated GFR 50 POC Glucose Random Glucose 131 H Lactic Acid Calcium 8.6 Total Bilirubin < 0.2 Direct Bilirubin < 0.2 AST 26 ALT 10 Alkaline Phosphatase 123 H Troponin I High Sens 13.9 Total Protein 7.2 Albumin 3.8 Lipase 6 L Urine Color Urine Appearance Urine pH Ur Specific [place] Urine Protein Urine Glucose (UA) Urine Ketones Urine Blood Urine Nitrite Ur Leukocyte Esterase Urine RBC Urine WBC Ur Squamous Epith Cells Urine Bacteria Hyaline Casts COVID-19 ([facility]) Negative COVID-19 Clin Com See Note 07/22/22 07/22/22 07/23/22 22:45 23:23 06:35 MCV 92.5 MCH 30.7 MCHC 33.2 RDW 11.7 Plt Count 224 MPV 9.8 Immature Gran % (Auto) 0.4 Neut % (Auto) 61.2 Lymph % (Auto) 25.5 [place] % (Auto) 8.4 Eos % (Auto) 3.5 Baso % (Auto) 1.0 Lymph # (Auto) 1.2 [place] # (Auto) 0.4 Eos # (Auto) 0.2 Baso # (Auto) 0.1 Abs Immat Gran (auto) 0.02 Absolute Neuts (auto) 3.0 Absolute Nucleated RBC 0.000 Nucleated RBC % (auto) 0.0 Whole Blood PT Whole Blood INR Anion Gap Estim Creat Clear Calc Estimated GFR POC Glucose Random Glucose Lactic Acid 0.9 Calcium Total Bilirubin Direct Bilirubin AST ALT Alkaline Phosphatase Troponin I High Sens Total Protein Albumin Lipase Urine Color Yellow Urine Appearance Clear Urine pH 7.5 Ur Specific Teller <= 1.005 Urine Protein 30 (1+) H Urine Glucose (UA) Negative Urine Ketones Negative Urine Blood Small (1+) H Urine Nitrite Negative Ur Leukocyte Esterase Large (3+) H Urine RBC 11-20 H Urine WBC 11-20 H Ur Squamous Epith Cells 6-10 Urine Bacteria 1+ Hyaline Casts 0-2 COVID-19 ([facility]) COVID-19 [employer] 07/23/22 07/23/22 07/23/22 06:35 07:28 11:56 MCV MCH MCHC RDW Plt Count MPV Immature Gran % (Auto) Neut % (Auto) Lymph % (Auto) [place] % (Auto) Eos % (Auto) Baso % (Auto) Lymph # (Auto) [place] # (Auto) Eos # (Auto) Baso # (Auto) Abs Immat Gran (auto) Absolute Neuts (auto) Absolute Nucleated RBC Nucleated RBC % (auto) Whole Blood PT Whole Blood INR Anion Gap 15 Estim Creat Clear Calc 47.2 Estimated GFR > 60 POC Glucose 180 H 292 H Random Glucose 174 H Lactic Acid Calcium 8.6 Total Bilirubin Direct Bilirubin AST ALT Alkaline Phosphatase Troponin I High Sens Total Protein Albumin Lipase Urine Color Urine Appearance Urine pH Ur Specific [place] Urine Protein Urine Glucose (UA) Urine Ketones Urine Blood Urine Nitrite Ur Leukocyte Esterase Urine RBC Urine WBC Ur Squamous Epith Cells Urine Bacteria Hyaline Casts COVID-19 ([facility]) COVID-19 [facility] Com Microbiology Microbiology Results: Microbiology 07/22/22 Unknown Urine Culture - Preliminary Urine clean catch - Urine boston top Culture in progress. Assessment and Plan (1) Acute respiratory failure with hypoxia: Status: Acute (2) Hypoxia: Status: Acute (3) Pneumonia: Status: Acute (4) UTI (urinary tract infection): Status: Acute (5) Altered mental status: Status: Acute Plan 81-year-old female with past medical history anxiety depression, diabetes, presents to the hospital when her boyfriend noticed some altered mentation # acute encephalopathy - currently awake alert, oriented to self place and time as well as situation - the episode likely secondary to acute infection given her UTI as well pneumonia - his CT negative - has no neurological deficits - at this time will treat underlying infection and monitor mentation # acute hypoxic respiratory failure - secondary to pneumonia - COVID-19 negative - extensive viral panel pending - continue O2 supplement as needed - titrate O2 as tolerated # pneumonia - has hypoxic respiratory failure as well as evidence of bronchial wall thickening on chest x-ray - afebrile, no leukocytosis - will treat with antibiotics - follow viral panel - follow blood cultures # UTI - positive UA - has increased urinary retention - history of bladder prolapse - treat with IV antibiotics - follow cultures # diabetes - low-dose sliding scale insulin - diabetic diet # hypertension - stable - continue antihypertensives # anxiety and depression - will continue home medications DVT prophylaxis:? Lovenox inpatient need :toxic metabolic encephalopathy and acute hypoxic respiratory failure possible due to pneumonia-need iv antibiotics Quality Stroke Does the patient have a stroke diagnosis?: No VTE Prior VTE?: No VTE Risk Level:: Medical - moderate - high VTE Device Contraindication: Treatment Not Indicated VTE Drug Contraindication: N/A - Med Ordered
[2022-07-23 14:25] LABS: Adenovirus PCR Not Detected (Not Detect.); Bordetella parapertussis PCR Not Detected (Not Detect.); Bordetella pertussis PCR Not Detected (Not Detect.); Chlamydia pneumoniae PCR Not Detected (Not Detect.); Coronavirus 229E PCR Not Detected (Not Detect.); Coronavirus HKU1 PCR Not Detected (Not Detect.); Coronavirus NL63 PCR Not Detected (Not Detect.); Coronavirus OC43 PCR Not Detected (Not Detect.); Human metapneumovirus PCR Not Detected (Not Detect.); Influenza A PCR Not Detected (Not Detect.); Influenza B PCR Not Detected (Not Detect.); Mycoplasma pneumoniae PCR Not Detected (Not Detect.); Parainfluenza 1 PCR Not Detected (Not Detect.); Parainfluenza 2 PCR Not Detected (Not Detect.); Parainfluenza 3 PCR Not Detected (Not Detect.); Parainfluenza 4 PCR Not Detected (Not Detect.); RSV PCR Not Detected (Not Detect.); Rhino/Enterovirus PCR Not Detected (Not Detect.); SARS-CoV-2 PCR Not Detected (Not Detect.)
[2022-07-23] MEDS: Atorvastatin Calcium 20 MG TABLET PO (16:15)
[2022-07-23] MEDS: busPIRone HCl 5 MG TABLET PO (16:16)
[2022-07-23] MEDS: carvediloL 3.125 MG TABLET PO (16:17)
[2022-07-23 18:12] LABS: Glucose, Whole Blood 399 mg/dL (60-115)
--- NOTE | 2022-07-23 19:29 | MHC.SLORD ---
Addendum entered and electronically signed by Tisha Uribe MA, CCC-CHERRY PITTER 07/23/22 19:33: D.S. Original Note: Speech Language Pathology Order Status: CHERRY PITTER checked in w/ RN 2X this date regarding pt. RN reports pt is tolerating regular diet okay and taking pills whole w/ liquid 1 at a time w/o problems. CHERRY PITTER reached out to MD regarding update that ED staff has no current concerns w/ pt's swallowing. MD confirmed to leave pt w/ regular solids and thin liquids based on ED staff reports.
[2022-07-23 20:35] LABS: Glucose, Whole Blood 378 mg/dL (60-115)
[2022-07-23] MEDS: Azithromycin 500 MG in 0.9 % Sodium Chloride 250 ML 125 MG IV (20:58)
[2022-07-23] MEDS: cefTRIAXone sodium 1 GM in 0.9 % Sodium Chloride 50 ML IV (22:54)
[2022-07-24] VITALS (7 sets, daily range): BP systolic 106–158; BP diastolic 52–70; PULSE 77–87; RESP 16–18; TEMP 36.1–37; O2SAT 96–99
[2022-07-24] MEDS: vancomycin HCL 1,500 MG in 0.9 % Sodium Chloride 500 ML 250 MG IV (00:35)
[2022-07-24] MEDS: ALPRAZolam 0.5 MG TABLET PO ×3 (07:49→19:49)
[2022-07-24] MEDS: Cholecalciferol (Vitamin D3) 25 MCG TABLET PO (07:49)
[2022-07-24] MEDS: 0.9 % Sodium Chloride Flush 3 ML SYRINGE IVFLUSH ×2 (07:49→15:30)
[2022-07-24] MEDS: carvediloL 3.125 MG TABLET PO ×2 (07:49→17:15)
[2022-07-24] MEDS: Losartan Potassium 50 MG TABLET 100 MG PO (07:49)
[2022-07-24 07:53] LABS: Glucose, Whole Blood 273 mg/dL (60-115)
[2022-07-24] MEDS: Bumetanide 1 MG TABLET 0.5 MG PO (07:53)
[2022-07-24] MEDS: Acetaminophen 325 MG TABLET 650 MG PO (07:53)
[2022-07-24] MEDS: Insulin Lispro 100 UNIT/ML 3 ML VIAL SUBCUT ×4 (07:57→21:10)
[2022-07-24] MEDS: busPIRone HCl 5 MG TABLET PO ×2 (08:02→17:15)
[2022-07-24 09:33] LABS: Creatinine Clr Calc Pharmacy 40.8; Estimated Glomerular Filt Rate 51
--- NOTE | 2022-07-24 11:01 | PHA.PROG ---
Admission Date/Time: July 22, 2022 23:14 Indication: BACTEREMIA Weight in k.967 kg Adjusted body weight in K KG Orange body weight in K.6 Obesity Dosing Indication % IBW: Serum Creatinine - Last 168 Hours 07/22/22 07/23/22 07/24/22 22:07 06:35 09:12 Creatinine 1.06 0.90 1.04 Estimated CrCl and GFR - Last 168 Hours 07/22/22 07/23/22 07/24/22 22:07 06:35 09:12 Estim Creat Clear Calc 40.0 47.2 40.8 Estimated GFR 50 > 60 51 Vancomycin Loading Dose: 1500 MG X 1 GIVEN IN ED OVERNIGHT Current Vancomycin Dosing Regimen: 1000 MG Q24H Vancomycin Monitoring using AUC goal of 400 - 600 range with trough as surrogate marker: PREDICTED AUC 522 Date and Time for next Vancomycin Level to be drawn: 07/25/22 @2100 (BEFORE 3RD DOSE) Pharmacist Comments on Vancomycin Plan: Vancomycin dosing will take advantage of [employer] as a clinical decision support tool that uses Bayesian modeling to calculate individual patient's pharmacokinetic parameters and forecast the patient's drug concentration time course with the target goal AUC 24 range of 400 - 600 mg/L/hr.
[2022-07-24] MEDS: Heparin Sodium,Porcine 5,000 UNIT/ML VIAL 5000 UNIT SUBCUT ×2 (11:28→23:28)
[2022-07-24] MEDS: Aspirin Enteric Coated 81 MG TABLET.DR PO (11:28)
--- NOTE | 2022-07-24 11:38 | MHC.CM.PN ---
IMM 07/24/22 Female 81 DX [facility]NA She lives with S.O. She is independent with equipment. L foot wound care is provided by [facility] as well as [facility] [place]. [facility] and [facility] [place] [facility]. Her significant other will provide transportation. She has not been vaccinated for covid. She has a HCP, a copy has been requested.
--- NOTE | 2022-07-24 12:32 | HO.PM.IMPN ---
Subjective Subjective Date of Service: 07/24/22 Interval History: Acute respiratory failure with hypoxia, dm with hyperglycemia Review of Systems Is still short of breath with minimal exertion Has dry cough Physical Exam Vital Signs: Vital Signs: Last Vital Signs Temp 97.3 F 07/24/22 11:08 Pulse 77 07/24/22 11:08 Resp 18 07/24/22 11:08 BP 121/59 L 07/24/22 11:08 Pulse Ox 97 07/24/22 11:08 O2 Del Method 07/24/22 11:08 O2 Flow Rate 2.5 07/24/22 11:08 BMI result Body Mass Index 20.3 Appearance:? Awake and more alert, answering simple questions cvs: [id number], [id number] , no murmur res:? Air entry diminished at bases, no rales or wheezing. abd: no rebound or guarding ,nt, bs present. ext pulses present , no cyanosis . neuro:nonfocal. Objective Data Active Medications Acetaminophen (Acetaminophen 325 Mg Tablet) 650 mg PO Q6H PRN PRN Reason: Pain (Scale Score 1-3) Last Admin: 07/24/22 07:53 Dose: 650 mg Documented By: MIGUEL ANGEL Alprazolam (Alprazolam 0.5 Mg Tablet) 0.5 mg PO TID@0900,1700,2100 [facility] Last Admin: 07/24/22 07:49 Dose: 0.5 mg Documented By: MIGUEL ANGEL Artificial Tears (Artificial Tears 15 Ml Drops) 1 drop EYE-BOTH Q4H PRN PRN Reason: Dry Eyes Aspirin (Aspirin Enteric Coated 81 Mg Tablet.) 81 mg PO DAILY@1200 [facility] Last Admin: 07/24/22 11:28 Dose: 81 mg Documented By: MIGUEL ANGEL Atorvastatin Calcium (Atorvastatin Calcium 20 Mg Tablet) 20 mg PO Q2D@1700 [facility] Last Admin: 07/23/22 16:15 Dose: 20 mg Documented By: TAMIKO Bumetanide (Bumetanide 1 Mg Tablet) 0.5 mg PO Q4D [facility]; Protocol Last Admin: 07/24/22 07:53 Dose: 0.5 mg Documented By: MIGUEL ANGEL Buspirone HCl (Buspirone Hcl 5 Mg Tablet) 5 mg PO BID@0900,1700 [facility] Last Admin: 07/24/22 08:02 Dose: 5 mg Documented By: MIGUEL ANGEL Carvedilol (Carvedilol 3.125 Mg Tablet) 3.125 mg PO BID@0900,1700 [facility]; Protocol Last Admin: 07/24/22 07:49 Dose: 3.125 mg Documented By: MIGUEL ANGEL Dextrose (Dextrose 50 % 25 Gm/50 Ml Syringe) 25 gm IVPUSH Q15M PRN; Protocol PRN Reason: per Hypoglycemia Standing Ord. Docusate Sodium (Docusate Sodium 100 Mg Capsule) 100 mg PO DAILY PRN PRN Reason: Constipation Ferrous Sulfate (Ferrous Sulfate 324 Mg Tablet.Dr) 324 mg PO Q2D@0900 [facility] Glucose (Glucose Gel 15 Gm Gel..Gram.) 15 gm PO Q15M PRN; Protocol PRN Reason: per Hypoglycemia Standing Ord. Heparin Sodium (Porcine) (Heparin Sodium,Porcine 5,000 Unit/Ml Vial) 5,000 unit SUBCUT Q12H [facility] Last Admin: 07/24/22 11:28 Dose: 5,000 unit Documented By: MIGUEL ANGEL Ceftriaxone Sodium 1 gm/ (Sodium Chloride) 50 mls @ 100 mls/hr IV Q24H [facility] Last Infusion: 07/23/22 23:58 Dose: 0 mls/hr Documented By: ALEJO Azithromycin 500 mg/ Sodium (Chloride) 250 mls @ 125 mls/hr IV Q24H [facility] Last Infusion: 07/23/22 23:58 Dose: 0 mls/hr Documented By: ALEJO Vancomycin HCl 1,000 mg/ (Sodium Chloride) 270 mls @ 270 mls/hr IV Q24H [facility] Insulin Human Lispro (Insulin Lispro 100 Unit/Ml 3 Ml Vial) 0.1 - 10 unit SUBCUT QIDACHS [facility]; Protocol Last Admin: 07/24/22 11:28 Dose: 10 unit Documented By: MIGUEL ANGEL Losartan Potassium (Losartan Potassium 50 Mg Tablet) 100 mg PO DAILY [facility]; Protocol Last Admin: 07/24/22 07:49 Dose: 100 mg Documented By: MIGUEL ANGEL Mirtazapine (Mirtazapine 7.5 Mg Tablet) 7.5 mg PO BEDTIME [facility] Last Admin: 07/23/22 20:56 Dose: 7.5 mg Documented By: LISSETH Non-Formulary Medication (Bupropion Hcl) 100 mg PO DAILY [facility] Non-Formulary Medication (Netarsudil-Latanoprost [Rocklatan]) 1 drop EYE-RIGHT BEDTIME [facility] Nystatin (Nystatin Ointment 15 Gm Tube) 1 appl TOPICAL BID PRN; Protocol PRN Reason: Rash Ondansetron HCl (Ondansetron Hcl 4 Mg/2 Ml Vial) 4 mg IVPUSH Q8H PRN PRN Reason: Nausea and Vomiting Pharmacy Consult (Consult Rx Perform Med Rec) 1 each MISCELLANE ONCE PRN PRN Reason: Consult order Pharmacy Consult (Consult Rx Vancomycin Dosing) 1 each MISCELLANE DAILY PRN PRN Reason: Consult order Sodium Chloride (0.9 % Sodium Chloride Flush 3 Ml Syringe) 3 ml IVFLUSH QSHIFT [facility] Last Admin: 07/24/22 07:49 Dose: 3 ml Documented By: MIGUEL ANGEL Vitamin D (Cholecalciferol (Vitamin D3) 25 Mcg Tablet) 25 mcg PO DAILY [facility] Last Admin: 07/24/22 07:49 Dose: 25 mcg Documented By: MIGUEL ANGEL Labs CBC & Chem 7: 07/23/22 06:35 07/24/22 09:12 Labs: Laboratory Results - last 24 hr 07/23/22 07/23/22 07/23/22 13:12 18:07 20:28 Estim Creat Clear Calc Estimated GFR POC Glucose 399 H* 378 H* Respiratory Panel [place] See note Adenovirus (Rapid PCR) Not Detected B.pert (TEM-PCR) Not Detected B.parapertussis DNA PCR Not Detected C. pneumoniae DNA (PCR) Not Detected Coronavirus OC43 (PCR) Not Detected Coronavirus HKU1 (PCR) Not Detected Coronavirus 229E (PCR) Not Detected Coronavirus NL63 (PCR) Not Detected Human Metapneumovir PCR Not Detected Influenza A (RT-PCR) Not Detected Influenza B (RT-PCR) Not Detected M. pneumoniae (PCR) Not Detected Parainfluenza 1 (PCR) Not Detected Parainfluenza 2 (PCR) Not Detected Parainfluenza 3 (PCR) Not Detected Parainfluenza 4 (PCR) Not Detected RSV (PCR) Not Detected Entero/Rhino (PCR) Not Detected SARS-CoV-2 RNA (RT-PCR) Not Detected 07/24/22 07/24/22 07/24/22 07:12 09:12 11:12 Estim Creat Clear Calc 40.8 Estimated GFR 51 POC Glucose 273 H 395 H* Respiratory Panel [place] Adenovirus (Rapid PCR) B.pert (TEM-PCR) B.parapertussis DNA PCR C. pneumoniae DNA (PCR) Coronavirus OC43 (PCR) Coronavirus HKU1 (PCR) Coronavirus 229E (PCR) Coronavirus NL63 (PCR) Human Metapneumovir PCR Influenza A (RT-PCR) Influenza B (RT-PCR) M. pneumoniae (PCR) Parainfluenza 1 (PCR) Parainfluenza 2 (PCR) Parainfluenza 3 (PCR) Parainfluenza 4 (PCR) RSV (PCR) Entero/Rhino (PCR) SARS-CoV-2 RNA (RT-PCR) Microbiology Microbiology Results: Microbiology 07/22/22 Unknown Urine Culture - Final Urine clean catch - Urine [place] top 07/22/22 22:45 Blood Culture - Preliminary Blood - Venous Prelim: GPC Gram Stain only 07/22/22 22:45 Blood Culture - Preliminary Blood - Venous No growth after 24 hours. Assessment and Plan (1) UTI (urinary tract infection): Status: Acute (2) Acute respiratory failure with hypoxia: Status: Acute (3) Pneumonia: Status: Acute (4) Hyperglycemia: Status: Acute Plan 81-year-old female with past medical history anxiety depression, diabetes, presents to the hospital when her boyfriend noticed some altered mentation # acute encephalopathy - currently awake alert, oriented to self place and time as well as situation - the episode likely secondary to acute infection given her UTI as well pneumonia - his CT negative - has no neurological deficits - at this time will treat underlying infection and monitor mentation # acute hypoxic respiratory failure - secondary to pneumonia - COVID-19 negative - extensive viral panel pending - continue O2 supplement as needed - titrate O2 as tolerated # pneumonia - has hypoxic respiratory failure as well as evidence of bronchial wall thickening on chest x-ray - afebrile, no leukocytosis 1/2 blood culture postive -gram positive cocci, - will treat with antibiotics - follow viral panel - follow blood cultures ID eval # UTI - positive UA - has increased urinary retention - history of bladder prolapse - treat with IV antibiotics - follow cultures # diabetes type 2 with hyperglycemia - diabetic diet,added lantus and adjusted sliding scale insulin # hypertension - stable - continue antihypertensives # anxiety and depression - will continue home medications DVT prophylaxis:? Lovenox inpatient need :toxic metabolic encephalopathy ,? bacteremia and acute hypoxic respiratory failure possible due to pneumonia-need iv antibiotics Quality Stroke Does the patient have a stroke diagnosis?: No VTE Prior VTE?: No VTE Risk Level:: Medical - moderate - high VTE Device Contraindication: Treatment Not Indicated VTE Drug Contraindication: N/A - Med Ordered
[2022-07-24] MEDS: Insulin Glargine,Hum.rec.anlog 100 UNIT/ML 10 ML VIAL SUBCUT (13:34)
--- NOTE | 2022-07-24 13:37 | PC.NURSE ---
Addendum entered by Mara Chatman RN 07/24/22 15:36: Patient reports that she feels like her sugar is low. POC checked and it was 183. Patient states That is too low for me, it will not last me till dinner . Patient given newton crackers per request. Spouse at bedside. Original Note: Patient OOB into the chair and using commode. 1x assist with walker. Patient refusing wound care on left foot, [facility] deals with it every other week .
[2022-07-24] MEDS: Mirtazapine 7.5 MG TABLET PO (19:49)
[2022-07-24] MEDS: Azithromycin 500 MG in 0.9 % Sodium Chloride 250 ML 125 MG IV (19:49)
[2022-07-24] MEDS: cefTRIAXone sodium 1 GM in 0.9 % Sodium Chloride 50 ML IV (22:14)
[2022-07-24] MEDS: vancomycin HCL 1,000 MG in 0.9 % Sodium Chloride 250 ML 270 MG IV (23:27)
[2022-07-25 03:41] VITALS: BP 135/61; PULSE 84; RESP 18; TEMP 36.4; O2SAT 99
[2022-07-25 06:46] LABS: Creatinine Clr Calc Pharmacy 38.6; Estimated Glomerular Filt Rate 48
[2022-07-25 07:46] VITALS: BP 154/66; PULSE 86; RESP 18; TEMP 36.6; O2SAT 94
[2022-07-25] MEDS: Insulin Lispro 100 UNIT/ML 3 ML VIAL SUBCUT ×3 (08:26→17:15)
[2022-07-25] MEDS: 0.9 % Sodium Chloride Flush 3 ML SYRINGE IVFLUSH ×3 (08:27→19:59)
[2022-07-25] MEDS: carvediloL 3.125 MG TABLET PO ×2 (08:27→17:15)
[2022-07-25] MEDS: Cholecalciferol (Vitamin D3) 25 MCG TABLET PO (08:27)
[2022-07-25] MEDS: busPIRone HCl 5 MG TABLET PO ×2 (08:28→17:15)
[2022-07-25] MEDS: Acetaminophen 325 MG TABLET 650 MG PO (08:28)
[2022-07-25] MEDS: ALPRAZolam 0.5 MG TABLET PO ×3 (08:28→19:59)
[2022-07-25 12:00] VITALS: BP 133/59; PULSE 76; RESP 16; TEMP 36.4; O2SAT 95
[2022-07-25] MEDS: Heparin Sodium,Porcine 5,000 UNIT/ML VIAL 5000 UNIT SUBCUT ×2 (12:00→22:32)
[2022-07-25] MEDS: Aspirin Enteric Coated 81 MG TABLET.DR PO (12:00)
--- NOTE | 2022-07-25 13:28 | HO.PM.IMPN ---
Subjective Subjective Date of Service: 07/25/22 Interval History: Acute respiratory failure with hypoxia,? bacteremia Review of Systems Is still short of breath with minimal exertion Has dry cough Physical Exam Vital Signs: Vital Signs: Last Vital Signs Temp 97.6 F 07/25/22 12:00 Pulse 76 07/25/22 12:00 Resp 16 07/25/22 12:00 BP 133/59 L 07/25/22 12:00 Pulse Ox 95 07/25/22 12:00 O2 Del Method 07/25/22 12:00 O2 Flow Rate 2.5 07/25/22 03:41 BMI result Body Mass Index 20.3 Appearance:? Awake and more alert, answering simple questions cvs: rrr, [id number] , no murmur res:? Air entry diminished at bases, no rales or wheezing. abd: no rebound or guarding ,nt, bs present. ext pulses present , no cyanosis . neuro:nonfocal. Objective Data Active Medications Acetaminophen (Acetaminophen 325 Mg Tablet) 650 mg PO Q6H PRN PRN Reason: Pain (Scale Score 1-3) Last Admin: 07/25/22 08:28 Dose: 650 mg Documented By: JORGE ALBERTO Alprazolam (Alprazolam 0.5 Mg Tablet) 0.5 mg PO TID@0900,1700,2100 [facility] Last Admin: 07/25/22 08:28 Dose: 0.5 mg Documented By: JORGE ALBERTO Artificial Tears (Artificial Tears 15 Ml Drops) 1 drop EYE-BOTH Q4H PRN PRN Reason: Dry Eyes Aspirin (Aspirin Enteric Coated 81 Mg Tablet.) 81 mg PO DAILY@1200 [facility] Last Admin: 07/25/22 12:00 Dose: 81 mg Documented By: JORGE ALBERTO Atorvastatin Calcium (Atorvastatin Calcium 20 Mg Tablet) 20 mg PO Q2D@1700 [facility] Last Admin: 07/23/22 16:15 Dose: 20 mg Documented By: TAMIKO Bumetanide (Bumetanide 1 Mg Tablet) 0.5 mg PO Q4D [facility]; Protocol Last Admin: 07/24/22 07:53 Dose: 0.5 mg Documented By: MIGUEL ANGEL Buspirone HCl (Buspirone Hcl 5 Mg Tablet) 5 mg PO BID@0900,1700 [facility] Last Admin: 07/25/22 08:28 Dose: 5 mg Documented By: JORGE ALBERTO Carvedilol (Carvedilol 3.125 Mg Tablet) 3.125 mg PO BID@0900,1700 [facility]; Protocol Last Admin: 07/25/22 08:27 Dose: 3.125 mg Documented By: JORGE ALBERTO Dextrose (Dextrose 50 % 25 Gm/50 Ml Syringe) 25 gm IVPUSH Q15M PRN; Protocol PRN Reason: per Hypoglycemia Standing Ord. Dextrose (Dextrose 50 % 25 Gm/50 Ml Syringe) 25 gm IVPUSH Q15M PRN; Protocol PRN Reason: per Hypoglycemia Standing Ord. Docusate Sodium (Docusate Sodium 100 Mg Capsule) 100 mg PO DAILY PRN PRN Reason: Constipation Ferrous Sulfate (Ferrous Sulfate 324 Mg Tablet.Dr) 324 mg PO Q2D@0900 [facility] Last Admin: 07/25/22 08:27 Dose: Not Given Documented By: JORGE ALBERTO Non-Admin Reason: Patient Refused Glucose (Glucose Gel 15 Gm Gel..Gram.) 15 gm PO Q15M PRN; Protocol PRN Reason: per Hypoglycemia Standing Ord. Glucose (Glucose Gel 15 Gm Gel..Gram.) 15 gm PO Q15M PRN; Protocol PRN Reason: per Hypoglycemia Standing Ord. Heparin Sodium (Porcine) (Heparin Sodium,Porcine 5,000 Unit/Ml Vial) 5,000 unit SUBCUT Q12H [facility] Last Admin: 07/25/22 12:00 Dose: 5,000 unit Documented By: JORGE ALBERTO Ceftriaxone Sodium 1 gm/ (Sodium Chloride) 50 mls @ 100 mls/hr IV Q24H [facility] Last Infusion: 07/25/22 01:18 Dose: 0 mls/hr Documented By: ALEJO Azithromycin 500 mg/ Sodium (Chloride) 250 mls @ 125 mls/hr IV Q24H [facility] Last Infusion: 07/24/22 22:21 Dose: 0 mls/hr Documented By: ALEJO Insulin Human Lispro (Insulin Lispro 100 Unit/Ml 3 Ml Vial) 0 unit SUBCUT QIDACHS [facility]; Protocol Last Admin: 07/25/22 12:00 Dose: 6 unit Documented By: JORGE ALBERTO Losartan Potassium (Losartan Potassium 50 Mg Tablet) 100 mg PO DAILY [facility]; Protocol Last Admin: 07/24/22 07:49 Dose: 100 mg Documented By: MIGUEL ANGEL Mirtazapine (Mirtazapine 7.5 Mg Tablet) 7.5 mg PO BEDTIME [facility] Last Admin: 07/24/22 19:49 Dose: 7.5 mg Documented By: ALEJO Non-Formulary Medication (Bupropion Hcl) 100 mg PO DAILY [facility] Non-Formulary Medication (Netarsudil-Latanoprost [Rocklatan]) 1 drop EYE-RIGHT BEDTIME [facility] Nystatin (Nystatin Ointment 15 Gm Tube) 1 appl TOPICAL BID PRN; Protocol PRN Reason: Rash Ondansetron HCl (Ondansetron Hcl 4 Mg/2 Ml Vial) 4 mg IVPUSH Q8H PRN PRN Reason: Nausea and Vomiting Pharmacy Consult (Consult Rx Perform Med Rec) 1 each MISCELLANE ONCE PRN PRN Reason: Consult order Pharmacy Consult (Consult Rx Vancomycin Dosing) 1 each MISCELLANE DAILY PRN PRN Reason: Consult order Sodium Chloride (0.9 % Sodium Chloride Flush 3 Ml Syringe) 3 ml IVFLUSH QSHIFT [facility] Last Admin: 07/25/22 08:27 Dose: 3 ml Documented By: JORGE ALBERTO Vitamin D (Cholecalciferol (Vitamin D3) 25 Mcg Tablet) 25 mcg PO DAILY [facility] Last Admin: 07/25/22 08:27 Dose: 25 mcg Documented By: JORGE ALBERTO Labs CBC & Chem 7: 07/23/22 06:35 07/25/22 05:44 Labs: Laboratory Results - last 24 hr 07/24/22 07/24/22 07/24/22 15:28 16:49 19:38 Estim Creat Clear Calc Estimated GFR POC Glucose 183 H 163 H 271 H 07/25/22 07/25/22 07/25/22 05:44 07:50 11:15 Estim Creat Clear Calc 38.6 Estimated GFR 48 POC Glucose 329 H 273 H Microbiology Microbiology Results: Microbiology 07/22/22 22:45 Blood Culture - Final Blood - Venous Coag negative Staphylococcus 07/24/22 00:21 Blood Culture - Preliminary Blood - Venous No growth after 24 hours. 07/24/22 00:21 Blood Culture - Preliminary Blood - Venous No growth after 24 hours. 07/22/22 22:45 Blood Culture - Preliminary Blood - Venous No growth after 48 hours. 07/22/22 Unknown Urine Culture - Final Urine clean catch - Urine [place] top Assessment and Plan (1) Hyperglycemia: Status: Acute (2) Acute respiratory failure with hypoxia: Status: Acute Plan 81-year-old female with past medical history anxiety depression, diabetes, presents to the hospital when her boyfriend noticed some altered mentation # acute encephalopathy - currently awake alert, oriented to self place and time as well as situation - the episode likely secondary to acute infection given her UTI as well pneumonia - his CT negative - has no neurological deficits - at this time will treat underlying infection and monitor mentation # acute hypoxic respiratory failure - secondary to pneumonia - COVID-19 negative - extensive viral panel pending - continue O2 supplement as needed - titrate O2 as tolerated # pneumonia - has hypoxic respiratory failure as well as evidence of bronchial wall thickening on chest x-ray - afebrile, no leukocytosis 1/2 blood culture postive -gram positive cocci, - will treat with antibiotics - follow viral panel - follow blood cultures ID eval # UTI - positive UA - has increased urinary retention - history of bladder prolapse - treat with IV antibiotics - follow cultures # diabetes type 2 with hyperglycemia - diabetic diet,adjusted lantus and adjusted sliding scale insulin # hypertension - stable - continue antihypertensives # anxiety and depression - will continue home medications DVT prophylaxis:? Lovenox inpatient need :toxic metabolic encephalopathy ,? bacteremia and acute hypoxic respiratory failure possible due to pneumonia-need iv antibiotics Quality Stroke Does the patient have a stroke diagnosis?: No VTE Prior VTE?: No VTE Risk Level:: Medical - moderate - high VTE Device Contraindication: Treatment Not Indicated VTE Drug Contraindication: N/A - Med Ordered
[2022-07-25 16:00] VITALS: BP 121/58; PULSE 83; RESP 18; TEMP 37; O2SAT 97
[2022-07-25] MEDS: Atorvastatin Calcium 20 MG TABLET PO (17:15)
[2022-07-25] MEDS: Mirtazapine 7.5 MG TABLET PO (19:58)
[2022-07-25] MEDS: Azithromycin 500 MG in 0.9 % Sodium Chloride 250 ML 125 MG IV (19:58)
[2022-07-25] MEDS: Nystatin Ointment 15 GM TUBE 1 APPL TOPICAL (20:00)
[2022-07-25 21:51] LABS: Vancomycin Random 13.5 mcg/mL (15-20)
[2022-07-25] MEDS: cefTRIAXone sodium 1 GM in 0.9 % Sodium Chloride 50 ML IV (22:32)
[2022-07-25 23:32] VITALS: BP 138/59; PULSE 78; RESP 18; TEMP 36.5; O2SAT 98
[2022-07-26 03:18] VITALS: BP 113/52; PULSE 80; RESP 18; TEMP 36.4; O2SAT 97
[2022-07-26 05:40] LABS: Estimated Average Glucose 232 mg/dL; Hemoglobin A1c % 9.7 %
[2022-07-26 05:43] LABS: Anion Gap 17 (12-20); Blood Urea Nitrogen 26 mg/dL (9-16); Calcium 8.5 mg/dL (8.4-10.2); Carbon Dioxide 24 mmol/L (22-29); Chloride 97 mmol/L (96-108); Estimated Glomerular Filt Rate 44; Potassium 4.3 mmol/L (3.3-5.1); Sodium 134 mmol/L (135-145)
[2022-07-26 05:55] LABS: Glucose Random 426 mg/dL (60-115)
[2022-07-26] MEDS: Insulin Lispro 100 UNIT/ML 3 ML VIAL SUBCUT ×5 (06:40→20:26)
[2022-07-26 07:33] VITALS: BP 136/56; PULSE 87; RESP 17; TEMP 36.3; O2SAT 93
[2022-07-26] MEDS: ALPRAZolam 0.5 MG TABLET PO ×3 (07:47→20:27)
[2022-07-26] MEDS: Cholecalciferol (Vitamin D3) 25 MCG TABLET PO (07:47)
[2022-07-26] MEDS: carvediloL 3.125 MG TABLET PO ×2 (07:47→16:46)
[2022-07-26] MEDS: 0.9 % Sodium Chloride Flush 3 ML SYRINGE IVFLUSH ×2 (07:47→16:45)
[2022-07-26] MEDS: busPIRone HCl 5 MG TABLET PO ×2 (07:47→16:46)
[2022-07-26 08:17] LABS: Glucose, Whole Blood 344 mg/dL (60-115)
[2022-07-26 08:50] LABS: Glucose, Whole Blood 268 mg/dL (60-115)
[2022-07-26] MEDS: 0.9 % Sodium Chloride 1,000 ML 100 ML IVCONT (09:23)
[2022-07-26 11:52] LABS: Glucose, Whole Blood 303 mg/dL (60-115)
[2022-07-26 12:00] VITALS: BP 118/57; PULSE 81; RESP 16; TEMP 36.3; O2SAT 92
[2022-07-26] MEDS: Aspirin Enteric Coated 81 MG TABLET.DR PO (12:07)
[2022-07-26] MEDS: Heparin Sodium,Porcine 5,000 UNIT/ML VIAL 5000 UNIT SUBCUT ×2 (12:07→23:08)
--- NOTE | 2022-07-26 12:26 | P.PNIM_ITS ---
Subjective Subjective Date of Service: 07/26/22 Interval History: Acute respiratory failure with hypoxia,? bacteremia Review of Systems sob seems somewhat improving po intake seems somewhatt less Denies any nausea or vomiting or abdominal pain or fever or chills. Physical Exam Vital Signs: Vital Signs: Last Vital Signs Temp 97.4 F 07/26/22 07:33 Pulse 87 07/26/22 07:33 Resp 17 07/26/22 07:33 BP 136/56 L 07/26/22 07:33 Pulse Ox 93 07/26/22 07:33 O2 Del Method Nasal Cannula 07/26/22 07:33 O2 Flow Rate 2.5 07/26/22 07:33 BMI result Body Mass Index 20.3 ? Appearance:? Awake and more alert, answering simple questions cvs: rrr, [id number] , no murmur res:? Air entry diminished at bases, no rales or wheezing. abd: no rebound or guarding ,nt, bs present. ext pulses present , no cyanosis . neuro:nonfocal. Objective Data Active Medications Acetaminophen (Acetaminophen 325 Mg Tablet) 650 mg PO Q6H PRN PRN Reason: Pain (Scale Score 1-3) Last Admin: 07/25/22 08:28 Dose: 650 mg Documented By: JORGE ALBERTO Alprazolam (Alprazolam 0.5 Mg Tablet) 0.5 mg PO TID@0900,1700,2100 [facility] Last Admin: 07/26/22 07:47 Dose: 0.5 mg Documented By: DANIEL Artificial Tears (Artificial Tears 15 Ml Drops) 1 drop EYE-BOTH Q4H PRN PRN Reason: Dry Eyes Aspirin (Aspirin Enteric Coated 81 Mg Tablet.) 81 mg PO DAILY@1200 [facility] Last Admin: 07/26/22 12:07 Dose: 81 mg Documented By: DANIEL Atorvastatin Calcium (Atorvastatin Calcium 20 Mg Tablet) 20 mg PO Q2D@1700 [facility] Last Admin: 07/25/22 17:15 Dose: 20 mg Documented By: JORGE ALBERTO Buspirone HCl (Buspirone Hcl 5 Mg Tablet) 5 mg PO BID@0900,1700 [facility] Last Admin: 07/26/22 07:47 Dose: 5 mg Documented By: DANIEL Carvedilol (Carvedilol 3.125 Mg Tablet) 3.125 mg PO BID@0900,1700 [facility]; Protocol Last Admin: 07/26/22 07:47 Dose: 3.125 mg Documented By: DANIEL Dextrose (Dextrose 50 % 25 Gm/50 Ml Syringe) 25 gm IVPUSH Q15M PRN; Protocol PRN Reason: per Hypoglycemia Standing Ord. Dextrose (Dextrose 50 % 25 Gm/50 Ml Syringe) 25 gm IVPUSH Q15M PRN; Protocol PRN Reason: per Hypoglycemia Standing Ord. Docusate Sodium (Docusate Sodium 100 Mg Capsule) 100 mg PO DAILY PRN PRN Reason: Constipation Ferrous Sulfate (Ferrous Sulfate 324 Mg Tablet.Dr) 324 mg PO Q2D@0900 [facility] Last Admin: 07/25/22 08:27 Dose: Not Given Documented By: JORGE ALBERTO Non-Admin Reason: Patient Refused Glucose (Glucose Gel 15 Gm Gel..Gram.) 15 gm PO Q15M PRN; Protocol PRN Reason: per Hypoglycemia Standing Ord. Glucose (Glucose Gel 15 Gm Gel..Gram.) 15 gm PO Q15M PRN; Protocol PRN Reason: per Hypoglycemia Standing Ord. Heparin Sodium (Porcine) (Heparin Sodium,Porcine 5,000 Unit/Ml Vial) 5,000 unit SUBCUT Q12H [facility] Last Admin: 07/26/22 12:07 Dose: 5,000 unit Documented By: DANIEL Ceftriaxone Sodium 1 gm/ (Sodium Chloride) 50 mls @ 100 mls/hr IV Q24H [facility] Last Infusion: 07/25/22 23:53 Dose: 100 mls/hr Documented By: MAURIZIO Azithromycin 500 mg/ Sodium (Chloride) 250 mls @ 125 mls/hr IV Q24H [facility] Last Infusion: 07/25/22 22:40 Dose: 125 mls/hr Documented By: MAURIZIO Sodium Chloride (Ns) 1,000 mls @ 100 mls/hr IVCONT .Q10H [facility] Last Admin: 07/26/22 09:23 Dose: 100 mls/hr Documented By: DANIEL Insulin Human Lispro (Insulin Lispro 100 Unit/Ml 3 Ml Vial) 0 unit SUBCUT QIDACHS [facility]; Protocol Last Admin: 07/26/22 12:12 Dose: 10 unit Documented By: DANIEL Losartan Potassium (Losartan Potassium 50 Mg Tablet) 100 mg PO DAILY [facility]; Protocol Last Admin: 07/24/22 07:49 Dose: 100 mg Documented By: MIGUEL ANGEL Mirtazapine (Mirtazapine 7.5 Mg Tablet) 7.5 mg PO BEDTIME [facility] Last Admin: 07/25/22 19:58 Dose: 7.5 mg Documented By: MAURIZIO Non-Formulary Medication (Bupropion Hcl) 100 mg PO DAILY [facility] Non-Formulary Medication (Netarsudil-Latanoprost [Rocklatan]) 1 drop EYE-RIGHT BEDTIME [facility] Nystatin (Nystatin Ointment 15 Gm Tube) 1 appl TOPICAL BID PRN; Protocol PRN Reason: Rash Last Admin: 07/25/22 20:00 Dose: 1 appl Documented By: MAURIZIO Ondansetron HCl (Ondansetron Hcl 4 Mg/2 Ml Vial) 4 mg IVPUSH Q8H PRN PRN Reason: Nausea and Vomiting Pharmacy Consult (Consult Rx Perform Med Rec) 1 each MISCELLANE ONCE PRN PRN Reason: Consult order Pharmacy Consult (Consult Rx Vancomycin Dosing) 1 each MISCELLANE DAILY PRN PRN Reason: Consult order Sodium Chloride (0.9 % Sodium Chloride Flush 3 Ml Syringe) 3 ml IVFLUSH QSHIFT [facility] Last Admin: 07/26/22 07:47 Dose: 3 ml Documented By: DANIEL Vitamin D (Cholecalciferol (Vitamin D3) 25 Mcg Tablet) 25 mcg PO DAILY [facility] Last Admin: 07/26/22 07:47 Dose: 25 mcg Documented By: DANIEL Labs CBC & Chem 7: 07/23/22 06:35 07/26/22 05:09 Labs: Laboratory Results - last 24 hr 07/25/22 07/25/22 07/25/22 16:09 19:47 21:15 Anion Gap Estim Creat Clear Calc Estimated GFR POC Glucose 202 H 116 H Random Glucose Estimat Average Glucose Hemoglobin A1c % Calcium Random Vancomycin 13.5 L 07/26/22 07/26/22 07/26/22 05:09 05:09 05:09 Anion Gap 17 Estim Creat Clear Calc Cancelled 36.0 Estimated GFR Cancelled 44 POC Glucose Random Glucose 426 H* Estimat Average Glucose 232 Hemoglobin A1c % 9.7 Calcium 8.5 Random Vancomycin 07/26/22 07/26/22 07/26/22 07:30 08:46 11:29 Anion Gap Estim Creat Clear Calc Estimated GFR POC Glucose 344 H 268 H 303 H Random Glucose Estimat Average Glucose Hemoglobin A1c % Calcium Random Vancomycin Microbiology Microbiology Results: Microbiology 07/24/22 00:21 Blood Culture - Preliminary Blood - Venous No growth after 48 hours. 07/24/22 00:21 Blood Culture - Preliminary Blood - Venous No growth after 48 hours. Assessment and Plan (1) Hyperglycemia: Status: Acute (2) Acute respiratory failure with hypoxia: Status: Acute Plan 81-year-old female with past medical history anxiety depression, diabetes, presents to the hospital when her boyfriend noticed some altered mentation # acute encephalopathy - currently awake alert, oriented to self place and time as well as situation - the episode likely secondary to acute infection given her UTI as well pneumonia - his CT negative - has no neurological deficits - at this time will treat underlying infection and monitor mentation # acute hypoxic respiratory failure - secondary to pneumonia - COVID-19 negative - extensive viral panel pending - continue O2 supplement as needed - titrate O2 as tolerated # pneumonia - has hypoxic respiratory failure as well as evidence of bronchial wall thickening on chest x-ray - afebrile, no leukocytosis 1/2 blood culture postive-coagulase neg staph ,all other blood culture neg - possible contaimination, - will treat with antibiotics - follow viral panel - follow blood cultures ID eval # UTI - positive UA - has increased urinary retention - history of bladder prolapse - treat with IV antibiotics - follow cultures # diabetes type 2 with hyperglycemia - diabetic diet,adjusted lantus and adjusted sliding scale insulin # hypertension - stable - continue antihypertensives # anxiety and depression - will continue home medications seems Mild prerenal: will give gentle hydration, hold diuretics for now bladder scan,pvr moniter i/o DVT prophylaxis:? Lovenox inpatient need :toxic metabolic encephalopathy ,? bacteremia and acute hypoxic respiratory failure possible due to pneumonia-need iv antibiotics Quality Stroke Does the patient have a stroke diagnosis?: No VTE Prior VTE?: No VTE Risk Level:: Medical - moderate - high VTE Device Contraindication: Treatment Not Indicated VTE Drug Contraindication: N/A - Med Ordered
--- NOTE | 2022-07-26 12:52 | MHC.CLN ---
NUTRITION PATIENT WITH WOUNDS TO LEFT HEEL AND LEFT ANKLE. TREATMENT AT [facility]. QUESTION IF DIABETIC ULCER OR PRESSURE INJURY. PATIENT WOULD LIKE SUPPLEMENT APPROPRIATE FOR DIABETES. ADDING GLUCERNA TID TO PROVIDE ADDITIONAL 710 KCALS, 30 G PROTEIN.
[2022-07-26 12:57] VITALS: BMI 20.3
[2022-07-26 15:53] LABS: Glucose, Whole Blood 275 mg/dL (60-115)
[2022-07-26 16:00] VITALS: BP 136/68; PULSE 76; RESP 16; TEMP 35.9; O2SAT 92
[2022-07-26 19:33] VITALS: BP 124/59; PULSE 78; RESP 19; TEMP 36.3; O2SAT 92
[2022-07-26 19:54] LABS: Glucose, Whole Blood 187 mg/dL (60-115)
[2022-07-26] MEDS: Azithromycin 500 MG in 0.9 % Sodium Chloride 250 ML 125 MG IV (20:27)
[2022-07-26] MEDS: Mirtazapine 7.5 MG TABLET PO (20:27)
[2022-07-26] MEDS: cefTRIAXone sodium 1 GM in 0.9 % Sodium Chloride 50 ML IV (23:08)
[2022-07-27] VITALS (7 sets, daily range): BP systolic 117–150; BP diastolic 51–71; PULSE 71–79; RESP 16–17; TEMP 36.3–37.1; O2SAT 91–93
[2022-07-27 07:05] LABS: Creatinine Clr Calc Pharmacy 36.2; Estimated Glomerular Filt Rate 45
[2022-07-27 07:53] LABS: Glucose, Whole Blood 407 mg/dL (60-115)
[2022-07-27] MEDS: Insulin Lispro 100 UNIT/ML 3 ML VIAL SUBCUT ×4 (08:04→21:30)
[2022-07-27] MEDS: carvediloL 3.125 MG TABLET PO ×2 (08:05→16:37)
[2022-07-27] MEDS: ALPRAZolam 0.5 MG TABLET PO ×3 (08:05→21:31)
[2022-07-27] MEDS: busPIRone HCl 5 MG TABLET PO ×2 (08:05→16:37)
[2022-07-27] MEDS: Cholecalciferol (Vitamin D3) 25 MCG TABLET PO (08:05)
[2022-07-27] MEDS: Ferrous Sulfate 324 MG TABLET.DR PO (08:05)
[2022-07-27] MEDS: 0.9 % Sodium Chloride Flush 3 ML SYRINGE IVFLUSH ×3 (08:05→21:30)
[2022-07-27 08:16] LABS: Blood Urea Nitrogen 32 mg/dL (9-16); Sodium 135 mmol/L (135-145)
[2022-07-27 09:18] LABS: Procalcitonin 0.09 ng/mL
--- NOTE | 2022-07-27 11:36 | HO.PM.IMPN ---
Subjective Subjective Date of Service: 07/27/22 Interval History: cough improving dyspnea improving good appetite Review of Systems Review of Systems: Yes all other systems are reviewed and are negative Physical Exam Vital Signs: Vital Signs: Last Vital Signs Temp 97.7 F 07/27/22 08:00 Pulse 78 07/27/22 08:00 Resp 16 07/27/22 08:00 BP 123/51 L 07/27/22 08:00 Pulse Ox 93 07/27/22 08:00 O2 Del Method 07/27/22 08:00 O2 Flow Rate 2.5 07/26/22 07:33 BMI result Body Mass Index 20.3 Gen: in no acute distress HEENT: sclera anicteric, moist mucus membranes Neck: supple Lungs: clear to auscultation bilaterally Heart: regular rate and rhythm, no murmurs Abd: soft, non-tender, non-distended Ext: no edema Skin: warm/well-perfused Neuro: alert and oriented x3, no focal findings Psych: appropriate affect Objective Data Active Medications Acetaminophen (Acetaminophen 325 Mg Tablet) 650 mg PO Q6H PRN PRN Reason: Pain (Scale Score 1-3) Last Admin: 07/25/22 08:28 Dose: 650 mg Documented By: JORGE ALBERTO Alprazolam (Alprazolam 0.5 Mg Tablet) 0.5 mg PO TID@0900,1700,2100 [facility] Last Admin: 07/27/22 08:05 Dose: 0.5 mg Documented By: DANIEL Artificial Tears (Artificial Tears 15 Ml Drops) 1 drop EYE-BOTH Q4H PRN PRN Reason: Dry Eyes Aspirin (Aspirin Enteric Coated 81 Mg Tablet.) 81 mg PO DAILY@1200 [facility] Last Admin: 07/26/22 12:07 Dose: 81 mg Documented By: DANIEL Atorvastatin Calcium (Atorvastatin Calcium 20 Mg Tablet) 20 mg PO Q2D@1700 [facility] Last Admin: 07/25/22 17:15 Dose: 20 mg Documented By: JORGE ALBERTO Buspirone HCl (Buspirone Hcl 5 Mg Tablet) 5 mg PO BID@0900,1700 [facility] Last Admin: 07/27/22 08:05 Dose: 5 mg Documented By: DANIEL Carvedilol (Carvedilol 3.125 Mg Tablet) 3.125 mg PO BID@0900,1700 [facility]; Protocol Last Admin: 07/27/22 08:05 Dose: 3.125 mg Documented By: DANIEL Dextrose (Dextrose 50 % 25 Gm/50 Ml Syringe) 25 gm IVPUSH Q15M PRN; Protocol PRN Reason: per Hypoglycemia Standing Ord. Dextrose (Dextrose 50 % 25 Gm/50 Ml Syringe) 25 gm IVPUSH Q15M PRN; Protocol PRN Reason: per Hypoglycemia Standing Ord. Docusate Sodium (Docusate Sodium 100 Mg Capsule) 100 mg PO DAILY PRN PRN Reason: Constipation Ferrous Sulfate (Ferrous Sulfate 324 Mg Tablet.Dr) 324 mg PO Q2D@0900 [facility] Last Admin: 07/27/22 08:05 Dose: 324 mg Documented By: DANIEL Glucose (Glucose Gel 15 Gm Gel..Gram.) 15 gm PO Q15M PRN; Protocol PRN Reason: per Hypoglycemia Standing Ord. Glucose (Glucose Gel 15 Gm Gel..Gram.) 15 gm PO Q15M PRN; Protocol PRN Reason: per Hypoglycemia Standing Ord. Heparin Sodium (Porcine) (Heparin Sodium,Porcine 5,000 Unit/Ml Vial) 5,000 unit SUBCUT Q12H [facility] Last Admin: 07/26/22 23:08 Dose: 5,000 unit Documented By: MAURIZIO Ceftriaxone Sodium 1 gm/ (Sodium Chloride) 50 mls @ 100 mls/hr IV Q24H [facility] Last Infusion: 07/27/22 00:09 Dose: 100 mls/hr Documented By: MAURIZIO Azithromycin 500 mg/ Sodium (Chloride) 250 mls @ 125 mls/hr IV Q24H [facility] Last Infusion: 07/26/22 23:23 Dose: 125 mls/hr Documented By: MAURIZIO Insulin Human Lispro (Insulin Lispro 100 Unit/Ml 3 Ml Vial) 0 unit SUBCUT QIDACHS [facility]; Protocol Last Admin: 07/27/22 08:04 Dose: 12 unit Documented By: DANIEL Losartan Potassium (Losartan Potassium 50 Mg Tablet) 100 mg PO DAILY [facility]; Protocol Last Admin: 07/24/22 07:49 Dose: 100 mg Documented By: MIGUEL ANGEL Mirtazapine (Mirtazapine 7.5 Mg Tablet) 7.5 mg PO BEDTIME [facility] Last Admin: 07/26/22 20:27 Dose: 7.5 mg Documented By: UMER Non-Formulary Medication (Bupropion Hcl) 100 mg PO DAILY [facility] Non-Formulary Medication (Netarsudil-Latanoprost [Rocklatan]) 1 drop EYE-RIGHT BEDTIME [facility] Non-Form (Levemir) 6 each SUBCUT DAILY@0700 [facility] Non-Formulary (Medication (Levemir)) 2 each SUBCUT DAILY@1900 [facility] Nystatin (Nystatin Ointment 15 Gm Tube) 1 appl TOPICAL BID PRN; Protocol PRN Reason: Rash Last Admin: 07/25/22 20:00 Dose: 1 appl Documented By: MAURIZIO Ondansetron HCl (Ondansetron Hcl 4 Mg/2 Ml Vial) 4 mg IVPUSH Q8H PRN PRN Reason: Nausea and Vomiting Pharmacy Consult (Consult Rx Perform Med Rec) 1 each MISCELLANE ONCE PRN PRN Reason: Consult order Pharmacy Consult (Consult Rx Vancomycin Dosing) 1 each MISCELLANE DAILY PRN PRN Reason: Consult order Sodium Chloride (0.9 % Sodium Chloride Flush 3 Ml Syringe) 3 ml IVFLUSH QSHIFT [facility] Last Admin: 07/27/22 08:05 Dose: 3 ml Documented By: DANIEL Vitamin D (Cholecalciferol (Vitamin D3) 25 Mcg Tablet) 25 mcg PO DAILY [facility] Last Admin: 07/27/22 08:05 Dose: 25 mcg Documented By: DANIEL Labs CBC & Chem 7: 07/23/22 06:35 07/27/22 05:57 Labs: Laboratory Results - last 24 hr 07/26/22 07/26/22 07/26/22 11:29 15:35 19:38 Estim Creat Clear Calc Estimated GFR POC Glucose 303 H 275 H 187 H Procalcitonin 07/27/22 07/27/22 07/27/22 05:57 05:57 07:39 Estim Creat Clear Calc 36.2 Estimated GFR 45 POC Glucose 407 H* Procalcitonin 0.09 Assessment and Plan (1) Hyperglycemia: Status: Acute (2) Acute respiratory failure with hypoxia: Status: Acute Plan d#6 81yo F with DM2 admitted for AMS + hypoxia due to PNA # PNA -d#5 ceftriaxone + azithromycin - BCx negative [CoNS was contaminant], RVP negative # acute hypoxic resp failure - weaned off O2 # encephalopathy due to PNA - resolved 81-year-old female with past medical history anxiety depression, diabetes, presents to the hospital when her boyfriend noticed some altered mentation # DM2 with hyperglycemia - basal/bolus insulin # HTN - continue carvedilol + losartan # mood disorder - continue bupropion + buspirone + mirtazapine + alprazolam # VTE ppx: UFH In my clinical judgment, the patient requires continued hospitalization for the following reasons: IV ABX, hyperglycemia Quality Stroke Does the patient have a stroke diagnosis?: No VTE Prior VTE?: No VTE Risk Level:: Medical - moderate - high VTE Device Contraindication: Treatment Not Indicated VTE Drug Contraindication: N/A - Med Ordered
[2022-07-27 11:42] LABS: Glucose, Whole Blood 342 mg/dL (60-115)
[2022-07-27] MEDS: Aspirin Enteric Coated 81 MG TABLET.DR PO (11:58)
[2022-07-27] MEDS: Heparin Sodium,Porcine 5,000 UNIT/ML VIAL 5000 UNIT SUBCUT ×2 (11:58→21:40)
--- NOTE | 2022-07-27 15:17 | P.CNID_ITS ---
History of Present Illness Data of Consult Service Date: 07/27/22 Requesting physician: George Santos Primary Care Provider: JONATHAN Forte Reason for consult: mental status changes She presents brought in by family with confusion and mental status changes. She didnt know where she was and was hypoxic. COVID was negative and there was negative PCR panel. She is now day 5 of Ceftriaxone and azithromycin. She is 91% room air. Review of Systems Review of Systems: Yes Unobtainable due to mental status PMFSH Past Medical History Medical History Constipation Diabetes Diabetic foot ulcer Glaucoma Lumbar compression fracture Macular degeneration Neuropathy Osteopenia Osteoporosis Prolapsed bladder Toe amputee Family History Family History Other No family history of coronary artery disease Family history: reviewed and not pertinent Social History Social History Household Members: Significant Other [facility]: [facility] Do you presently have visiting nurse or other home services: Yes Alcohol intake: never Patient Tobacco Use Status: Never used Tobacco Second Hand Smoke Exposure: No service: No Current occupational status: disabled Meds Allergies Allergy/AdvReac Type Severity Reaction Status Date / Time citalopram [Celexa] Allergy Unknown Unknown Verified 04/10/22 14:25 codeine [Codeine] Allergy Unknown ABLE TO Verified 04/10/22 14:25 TAKE IN VERY SMALL AMOUNTS, DIZZY WITH LARGE AMTS doxycycline Allergy Unknown Unknown Verified 04/10/22 14:25 Codeine Allergy Unknown Unknown Uncoded 04/10/22 14:25 Codeine Phosphate Allergy Unknown Unknown Uncoded 04/10/22 14:25 Doxycycline Hyclate Allergy Unknown Unknown Uncoded 04/10/22 14:25 novolin n Allergy Unknown Unknown Uncoded 04/10/22 14:25 Active Medications: Current Medications Acetaminophen (Acetaminophen 325 Mg Tablet) 650 mg PO Q6H PRN PRN Reason: Pain (Scale Score 1-3) Last Admin: 07/25/22 08:28 Dose: 650 mg Alprazolam (Alprazolam 0.5 Mg Tablet) 0.5 mg PO TID@0900,1700,2100 NELIDA Last Admin: 07/27/22 08:05 Dose: 0.5 mg Artificial Tears (Artificial Tears 15 Ml Drops) 1 drop EYE-BOTH Q4H PRN PRN Reason: Dry Eyes Aspirin (Aspirin Enteric Coated 81 Mg Tablet.) 81 mg PO DAILY@1200 COUNT INCLUDES THE [facility] Last Admin: 07/27/22 11:58 Dose: 81 mg Atorvastatin Calcium (Atorvastatin Calcium 20 Mg Tablet) 20 mg PO Q2D@1700 COUNT INCLUDES THE [facility] Last Admin: 07/25/22 17:15 Dose: 20 mg Buspirone HCl (Buspirone Hcl 5 Mg Tablet) 5 mg PO BID@0900,1700 COUNT INCLUDES THE [facility] Last Admin: 07/27/22 08:05 Dose: 5 mg Carvedilol (Carvedilol 3.125 Mg Tablet) 3.125 mg PO BID@0900,1700 COUNT INCLUDES THE [facility]; Protocol Last Admin: 07/27/22 08:05 Dose: 3.125 mg Dextrose (Dextrose 50 % 25 Gm/50 Ml Syringe) 25 gm IVPUSH Q15M PRN; Protocol PRN Reason: per Hypoglycemia Standing Ord. Dextrose (Dextrose 50 % 25 Gm/50 Ml Syringe) 25 gm IVPUSH Q15M PRN; Protocol PRN Reason: per Hypoglycemia Standing Ord. Docusate Sodium (Docusate Sodium 100 Mg Capsule) 100 mg PO DAILY PRN PRN Reason: Constipation Ferrous Sulfate (Ferrous Sulfate 324 Mg Tablet.) 324 mg PO Q2D@0900 COUNT INCLUDES THE [facility] Last Admin: 07/27/22 08:05 Dose: 324 mg Glucose (Glucose Gel 15 Gm Gel..Gram.) 15 gm PO Q15M PRN; Protocol PRN Reason: per Hypoglycemia Standing Ord. Glucose (Glucose Gel 15 Gm Gel..Gram.) 15 gm PO Q15M PRN; Protocol PRN Reason: per Hypoglycemia Standing Ord. Heparin Sodium (Porcine) (Heparin Sodium,Porcine 5,000 Unit/Ml Vial) 5,000 unit SUBCUT Q12H COUNT INCLUDES THE [facility] Last Admin: 07/27/22 11:58 Dose: 5,000 unit Ceftriaxone Sodium 1 gm/ (Sodium Chloride) 50 mls @ 100 mls/hr IV Q24H COUNT INCLUDES THE [facility] Last Infusion: 07/27/22 00:09 Dose: Infused Azithromycin 500 mg/ Sodium (Chloride) 250 mls @ 125 mls/hr IV Q24H COUNT INCLUDES THE [facility] Last Infusion: 07/26/22 23:23 Dose: Infused Insulin Human Lispro (Insulin Lispro 100 Unit/Ml 3 Ml Vial) 0 unit SUBCUT QIDACHS COUNT INCLUDES THE [facility]; Protocol Last Admin: 07/27/22 11:58 Dose: 10 unit Losartan Potassium (Losartan Potassium 50 Mg Tablet) 100 mg PO DAILY COUNT INCLUDES THE [facility]; Protocol Last Admin: 07/24/22 07:49 Dose: 100 mg Mirtazapine (Mirtazapine 7.5 Mg Tablet) 7.5 mg PO BEDTIME COUNT INCLUDES THE [facility] Last Admin: 07/26/22 20:27 Dose: 7.5 mg Non-Formulary Medication (Bupropion Hcl) 100 mg PO DAILY COUNT INCLUDES THE [facility] Non-Formulary Medication (Netarsudil-Latanoprost [Rocklatan]) 1 drop EYE-RIGHT BEDTIME COUNT INCLUDES THE [facility] Non-Formulary Medication (Non-Form (Levemir (Insulin Detemir) 100u/Ml) 6 units SUBCUT DAILY@0700 COUNT INCLUDES THE [facility] Non-Formulary Medication (Non-Form (Levemir (Insulin Detemir) 100u/Ml) 3 units SUBCUT DAILY@1900 COUNT INCLUDES THE [facility] Nystatin (Nystatin Ointment 15 Gm Tube) 1 appl TOPICAL BID PRN; Protocol PRN Reason: Rash Last Admin: 07/25/22 20:00 Dose: 1 appl Ondansetron HCl (Ondansetron Hcl 4 Mg/2 Ml Vial) 4 mg IVPUSH Q8H PRN PRN Reason: Nausea and Vomiting Pharmacy Consult (Consult Rx Perform Med Rec) 1 each MISCELLANE ONCE PRN PRN Reason: Consult order Pharmacy Consult (Consult Rx Vancomycin Dosing) 1 each MISCELLANE DAILY PRN PRN Reason: Consult order Sodium Chloride (0.9 % Sodium Chloride Flush 3 Ml Syringe) 3 ml IVFLUSH QSHIFT COUNT INCLUDES THE [facility] Last Admin: 07/27/22 08:05 Dose: 3 ml Vitamin D (Cholecalciferol (Vitamin D3) 25 Mcg Tablet) 25 mcg PO DAILY COUNT INCLUDES THE [facility] Last Admin: 07/27/22 08:05 Dose: 25 mcg Home Medications Medication Instructions Recorded Confirmed Last Taken Type acetaminophen 325 mg tablet 650 mg PO Q6H PRN Pain (Scale 01/07/21 07/23/22 Unknown History Score 1-3) alprazolam 0.5 mg tablet 0.5 mg PO TID@0900,1700,2100 01/07/21 07/23/22 01/07/21 History aspirin 81 mg tablet,delayed 81 mg PO DAILY@1200 01/07/21 07/23/22 01/07/21 History release bupropion HCl 100 mg tablet,12 hr 100 mg PO DAILY 01/07/21 07/23/22 01/07/21 History sustained-release buspirone 5 mg tablet 5 mg PO BID@0900,1700 01/07/21 07/23/22 01/07/21 History carboxymethylcellulose sodium 0.5 1 drp ophthalmic (eye) Q4H PRN Dry 01/07/21 07/23/22 Unknown History % eye drops (Refresh Tears) Eyes carvedilol 3.125 mg tablet 3.125 mg PO BID@0900,1700 01/07/21 07/23/22 01/07/21 History insulin aspart U-100 100 unit/mL See Protocol subcut TIDAC 01/07/21 07/23/22 History subcutaneous solution (Novolog U-100 Insulin aspart) insulin detemir U-100 100 unit/mL 6 unit subcut DAILY@0700 01/07/21 07/23/22 01/07/21 History subcutaneous solution (Levemir U-100 Insulin) losartan 100 mg tablet 100 mg PO DAILY 01/07/21 07/23/22 01/07/21 History mirtazapine 7.5 mg tablet 7.5 mg PO BEDTIME 01/07/21 07/23/22 01/06/21 History rosuvastatin 5 mg tablet 5 mg PO Q2D@1700 01/07/21 07/23/22 01/07/21 History bumetanide 0.5 mg tablet 0.5 mg PO Q4D 08/25/21 07/23/22 Unknown History netarsudil 0.02 %-latanoprost 1 drp ophthalmic-Right BEDTIME 08/25/21 07/23/22 Unknown History 0.005 % eye drops (Sullivanlatan) famotidine-Ca carb-mag hydrox 10 1 tab PO DAILY PRN Acid Reflux 12/18/21 07/23/22 Unknown History mg-800 mg-165 mg chewable tablet (Pepcid Complete) ferrous sulfate 325 mg (65 mg 325 mg PO Q2D@0900 12/18/21 07/23/22 Unknown History iron) tablet cholecalciferol (vitamin D3) 25 25 mcg PO DAILY 07/23/22 07/23/22 Unknown History mcg (1,000 unit) tablet insulin detemir U-100 100 unit/mL 3 unit subcut DAILY@1900 07/23/22 07/23/22 Unknown History subcutaneous solution (Levemir U-100 Insulin) nystatin 100,000 unit/gram topical 1 appl topical BID PRN Rash 07/23/22 07/23/22 Unknown History ointment Physical Exam Vital Signs: Vital Signs: Last Vital Signs Temp 97.5 F 07/27/22 11:50 Pulse 73 07/27/22 11:54 Resp 17 07/27/22 11:50 BP 117/71 07/27/22 11:54 Pulse Ox 91 L 07/27/22 11:54 O2 Del Method 07/27/22 11:50 O2 Flow Rate 2.5 07/26/22 07:33 BMI result Body Mass Index 20.3 Const: General: cooperative HEENT: Head: Yes normal to inspection Face and sinus: Yes normal facial exam Mouth: Normal oral and palatal mucosa present Teeth and gingiva: de ntition normal Eyes: General: appearance normal, both eyes and all related structures Pupils: Equal, round and reactive pupils present Resp: Effort & Inspection: normal respiratory effort Cardio: Rate: regular rate Rhythm: regular rhythm GI: Palpation (GI): Soft to palpation and nontender : General: Yes no CVA tenderness Back/Spine/Pelvis: Back: no CVA tenderness Skin: General skin exam: no rashes or lesions noted Neuro: Other: fairly somnolent General: moves all extremities Cranial nerves: Yes Equal, round and reactive pupils present Extrem: General: Yes normal to inspection Psych: Appearance: grossly normal Results Labs CBC & Chem 7: 07/23/22 06:35 07/27/22 05:57 Labs: BMP 07/27/22 05:57 Sodium 135 BUN 32 H Creatinine 1.17 Microbiology Microbiology Results: Microbiology 07/24/22 00:21 Blood - Venous Blood Culture - Preliminary No growth after 48 hours. 07/24/22 00:21 Blood - Venous Blood Culture - Preliminary No growth after 48 hours. 07/22/22 22:45 Blood - Venous Blood Culture - Final Coag negative Staphylococcus 07/22/22 22:45 Blood - Venous Blood Culture - Preliminary No growth after 48 hours. 07/22/22 Unknown Urine clean catch - Urine [place] top Urine Culture - Final Assessment and Plan (1) Acute respiratory failure with hypoxia: Status: Acute There are no organisms isolated and still some hypoxias She likely has some aspiration component and community acquired pneumonia such as strep pneumonia Less likely any central nervous system cause of somnolence. (2) Pneumonia: Status: Acute (3) Altered mental status: Status: Acute Plan Would stop Ceftriaxone and azithromycin on July [address] scan chest if not improving Further [employer] workup may be low yield Coagulase negative staph contaminant.
[2022-07-27 15:59] LABS: Glucose, Whole Blood 289 mg/dL (60-115)
[2022-07-27] MEDS: Atorvastatin Calcium 20 MG TABLET PO (16:37)
[2022-07-27 19:56] LABS: Glucose, Whole Blood 289 mg/dL (60-115)
[2022-07-27] MEDS: Mirtazapine 7.5 MG TABLET PO (21:31)
[2022-07-27] MEDS: cefTRIAXone sodium 1 GM in 0.9 % Sodium Chloride 50 ML IV (21:34)
[2022-07-27] MEDS: Azithromycin 500 MG in 0.9 % Sodium Chloride 250 ML 125 MG IV (22:08)
[2022-07-28] VITALS: BP 93/37; PULSE 77; RESP 18; TEMP 36.4; O2SAT 96
[2022-07-28 04:00] VITALS: BP 166/73; PULSE 73; RESP 18; TEMP 36.1; O2SAT 96
[2022-07-28 06:59] LABS: Creatinine Clr Calc Pharmacy 40.8; Estimated Glomerular Filt Rate 51
[2022-07-28 08:00] VITALS: BP 102/73; PULSE 84; RESP 18; TEMP 36.3; O2SAT 91
[2022-07-28 08:00] LABS: Glucose, Whole Blood 192 mg/dL (60-115)
[2022-07-28] MEDS: Insulin Lispro 100 UNIT/ML 3 ML VIAL SUBCUT ×2 (08:23→12:05)
[2022-07-28] MEDS: busPIRone HCl 5 MG TABLET PO (08:24)
[2022-07-28] MEDS: carvediloL 3.125 MG TABLET PO (08:24)
[2022-07-28] MEDS: Cholecalciferol (Vitamin D3) 25 MCG TABLET PO (08:24)
[2022-07-28] MEDS: 0.9 % Sodium Chloride Flush 3 ML SYRINGE IVFLUSH (08:24)
[2022-07-28] MEDS: ALPRAZolam 0.5 MG TABLET PO (08:24)
--- NOTE | 2022-07-28 09:51 | PM.DS ---
DS: Providers Provider Date of Service: 07/28/22 Date of admission: 07/22/22 23:14 Date of discharge: 07/28/22 Primary care physician: JONATHAN Forte Consults: 07/24/22 12:49 Consult to Infectious Diseases Routine Consulting Provider: Zainab Madrigal Reason for consultation: pneumonia/?bacteremia Has provider been notified: No DS: Diagnosis Discharge Diagnosis (1) Acute respiratory failure with hypoxia: Status: Acute (2) Pneumonia: Status: Acute (3) Encephalopathy due to infection: Status: Acute DS: Summary Hospital Course Hospital Course: from admission H+P by hospitalist Cody Sellers, 07/22/22: Seven 11-year-old female with past medical history of anxiety depression, diabetes, chronic diabetic foot ulcer, comes into the hospital after boyfriend noticed her to have an episode of confusion.? He reports that she was eating dinner with him on although sinus she got up out of a seated position a started pacing around the room not making any sense.? When asked list with the patient she reports that she does remember the incident but she felt very hot and she wanted to walk around her house.? She reports not feeling well for the past few days, having increased phlegm, reports increased urinary retention, she has a chronic bladder prolapse and has to use her thumb to allow herself to urinate but reports that she has gotten harder for the past 1 day.? otherwise denies any headache, no change in vision, no numbness tingling or weakness in her arms or legs, no difficulty in speech, no facial droop, she has chronic drooping of her left eyelid but had lost change, change in vision, headache. On arrival to the ED patient hemodynamically stable but noted to be hypoxic on room air satting 82%.? Currently on 2 L satting 92% Labs are significant for WBC count of 5.5, normal lactic acid, UA positive for large leukocyte Estrace and WBC Chest x-ray shows possible bronchial wall thickening concerning for pneumonia 81yo F with DM2 admitted for AMS + hypoxia due to PNA. She was admitted to the medical/surgical floor and treated with 7 days of ceftriaxone plus azithromycin. Blood cultures negative [coagulase-negative staphylococcus that grew was a contaminant] and respiratory virus panel negative. She was weaned off of supplemental oxygen and encephalopathy resolved. She was discharged home with 3 days of cefuroxime and resumption of VNA services. Time Spent with Patient Time attestation: Total time spent providing and/or coordinating discharge services: 40 Discharge coordination time: Greater than 30 minutes Quality: Safe Use of Opioids Does Pt have an Active Cancer Diagnosis on the Problem List?: No Quality: Stroke Does the patient have a stroke diagnosis?: No Physical Exam Vital Signs: Vital Signs: Last Vital Signs Temp 97.3 F 07/28/22 08:00 Pulse 84 07/28/22 08:00 Resp 18 07/28/22 08:00 BP 102/73 07/28/22 08:00 Pulse Ox 91 L 07/28/22 08:00 O2 Del Method 07/28/22 08:00 O2 Flow Rate 2.5 07/26/22 07:33 BMI result Body Mass Index 20.3 Gen: in no acute distress HEENT: sclera anicteric, moist mucus membranes Neck: supple Lungs: clear bilaterally Heart: regular rate and rhythm, no murmurs Abd: soft, non-tender, non-distended Ext: no edema Skin: warm/well-perfused Neuro: alert and oriented x3, no focal findings Psych: appropriate affect DS: Data Data Completed and Pending Completed studies during hospitalization [Text1]: Laboratory Results WBC 4.9 X10*3/uL (4.8-10.8) 07/23/22 06:35 RBC 4.11 X10*6/uL (4.20-5.50) L 07/23/22 06:35 Hgb 12.6 g/dl (12.0-16.0) 07/23/22 06:35 Hct 38.0 % (37.0-47.0) 07/23/22 06:35 MCV 92.5 fL (80.0-98.0) 07/23/22 06:35 MCH 30.7 pg (27.0-33.0) 07/23/22 06:35 MCHC 33.2 g/dl (31.0-35.0) 07/23/22 06:35 RDW 11.7 % (11.0-16.0) 07/23/22 06:35 Plt Count 224 X10*3/uL (160-400) 07/23/22 06:35 MPV 9.8 fL (9.4-12.3) 07/23/22 06:35 Immature Gran % (Auto) 0.4 % (0.0-0.4) 07/23/22 06:35 Neut % (Auto) 61.2 % (45-73) 07/23/22 06:35 Lymph % (Auto) 25.5 % (20-40) 07/23/22 06:35 Pope % (Auto) 8.4 % (2-11) 07/23/22 06:35 Eos % (Auto) 3.5 % (0-4) 07/23/22 06:35 Baso % (Auto) 1.0 % (0-2) 07/23/22 06:35 Lymph # (Auto) 1.2 X10*3/uL (1.2-4.9) 07/23/22 06:35 Pope # (Auto) 0.4 X10*3/uL (0.1-1.2) 07/23/22 06:35 Eos # (Auto) 0.2 X10*3/uL (0.0-0.4) 07/23/22 06:35 Baso # (Auto) 0.1 X10*3/uL (0.0-0.2) 07/23/22 06:35 Abs Immat Gran (auto) 0.02 X10*3/uL (0.00-0.03) 07/23/22 06:35 Absolute Neuts (auto) 3.0 x10*3/uL (2.0-8.3) 07/23/22 06:35 Absolute Nucleated RBC 0.000 X10*3/uL (0.0-0.012) 07/23/22 06:35 Nucleated RBC % (auto) 0.0 /100WBC (0.0-0.2) 07/23/22 06:35 Whole Blood PT 11.9 sec (11.1-13.5) 07/22/22 22:03 Whole Blood INR 1.0 (0.9-1.1) 07/22/22 22:03 Sodium 135 mmol/L (135-145) 07/27/22 05:57 Potassium 4.3 mmol/L (3.3-5.1) 07/26/22 05:09 Chloride 97 mmol/L (96-108) 07/26/22 05:09 Carbon Dioxide 24 mmol/L (22-29) 07/26/22 05:09 Anion Gap 17 (12-20) 07/26/22 05:09 BUN 32 mg/dL (9-16) H 07/27/22 05:57 Creatinine 1.04 mg/dL (0.5-1.4) 07/28/22 05:51 Estim Creat Clear Calc 40.8 07/28/22 05:51 Estimated GFR 51 07/28/22 05:51 POC Glucose 192 mg/dL (60-115) H 07/28/22 07:14 Random Glucose 426 mg/dL (60-115) H* 07/26/22 05:09 Estimat Average Glucose 232 mg/dL 07/26/22 05:09 Hemoglobin A1c % 9.7 % 07/26/22 05:09 Lactic Acid 0.9 mmol/L (0.5-2.0) 07/22/22 22:45 Calcium 8.5 mg/dL (8.4-10.2) 07/26/22 05:09 Total Bilirubin < 0.2 mg/dL (0.0-1.0) 07/22/22 22:07 Direct Bilirubin < 0.2 mg/dL (0.0-0.5) 07/22/22 22:07 AST 26 U/L (5-31) 07/22/22 22:07 ALT 10 U/L (0-31) 07/22/22 22:07 Alkaline Phosphatase 123 U/L (39-117) H 07/22/22 22:07 Troponin I High Sens 13.9 ng/L (<3.5-17.0) 07/22/22 22:07 Total Protein 7.2 g/dL (6.5-8.0) 07/22/22 22:07 Albumin 3.8 g/dL (3.5-5.0) 07/22/22 22:07 Lipase 6 U/L (8-78) L 07/22/22 22:07 Procalcitonin 0.09 ng/mL 07/27/22 05:57 Urine Color Yellow 07/22/22 23:23 Urine Appearance Clear 07/22/22 23:23 Urine pH 7.5 (5.0-9.0) 07/22/22 23:23 Ur Specific [place] <= 1.005 (1.005-1.025) 07/22/22 23:23 Urine Protein 30 (1+) mg/dL (Neg-Trace) H 07/22/22 23:23 Urine Glucose (UA) Negative mg/dL (Negative) 07/22/22 23:23 Urine Ketones Negative mg/dL (Negative) 07/22/22 23:23 Urine Blood Small (1+) (Negative) H 07/22/22 23:23 Urine Nitrite Negative (Negative) 07/22/22 23:23 Ur Leukocyte Esterase Large (3+) (Negative) H 07/22/22 23:23 Urine RBC 11-20 /HPF (0-2) H 07/22/22 23:23 Urine WBC 11-20 /HPF (0-5) H 07/22/22 23:23 Ur Squamous Epith Cells 6-10 /HPF (0-2) 07/22/22 23:23 Urine Bacteria 1+ (None Seen) 07/22/22 23:23 Hyaline Casts 0-2 /LPF (0-2) 07/22/22 23:23 Random Vancomycin 13.5 mcg/mL (15-20) L 07/25/22 21:15 Respiratory Panel [place] See note 07/23/22 13:12 Adenovirus (Rapid PCR) Not Detected (Not Detect.) 07/23/22 13:12 B.pert (TEM-PCR) Not Detected (Not Detect.) 07/23/22 13:12 B.parapertussis DNA PCR Not Detected (Not Detect.) 07/23/22 13:12 C. pneumoniae DNA (PCR) Not Detected (Not Detect.) 07/23/22 13:12 Coronavirus OC43 (PCR) Not Detected (Not Detect.) 07/23/22 13:12 Coronavirus HKU1 (PCR) Not Detected (Not Detect.) 07/23/22 13:12 Coronavirus 229E (PCR) Not Detected (Not Detect.) 07/23/22 13:12 COVID-19 (LILLY) Negative (Negative) 07/22/22 22:07 COVID-19 Clin Com See Note 07/22/22 22:07 Coronavirus NL63 (PCR) Not Detected (Not Detect.) 07/23/22 13:12 Human Metapneumovir PCR Not Detected (Not Detect.) 07/23/22 13:12 Influenza A (RT-PCR) Not Detected (Not Detect.) 07/23/22 13:12 Influenza B (RT-PCR) Not Detected (Not Detect.) 07/23/22 13:12 M. pneumoniae (PCR) Not Detected (Not Detect.) 07/23/22 13:12 Parainfluenza 1 (PCR) Not Detected (Not Detect.) 07/23/22 13:12 Parainfluenza 2 (PCR) Not Detected (Not Detect.) 07/23/22 13:12 Parainfluenza 3 (PCR) Not Detected (Not Detect.) 07/23/22 13:12 Parainfluenza 4 (PCR) Not Detected (Not Detect.) 07/23/22 13:12 RSV (PCR) Not Detected (Not Detect.) 07/23/22 13:12 Entero/Rhino (PCR) Not Detected (Not Detect.) 07/23/22 13:12 SARS-CoV-2 RNA (RT-PCR) Not Detected (Not Detect.) 07/23/22 13:[address] 07/22/22 21:59 IMPRESSION: No acute intracranial pathology. Mild involutional change and chronic microangiopathy. This critical result was discussed with Dr. Zaidi at 10:12 PM hours on 07/22/2022. It was ascertained that the content and urgency of the report was understood at the time of direct communication. Chest X-Ray 07/22/22 22:30 IMPRESSION: Stable enlargement of the cardiac silhouette. Coarse lung markings and question bronchial wall thickening. Discharge Plan Discharge Anticipated Discharge Date/Time: 07/28/22 09:48 Patient Disposition: Home Health Service Discharge Diagnosis: pneumonia, hypoxia, encephalopathy Referrals: Crow Lamas PA [Primary Care Provider] - 1 Week Discharge Medications: New cefuroxime axetil 500 mg tablet 500 mg PO BID Qty: 6 0RF Continued buspirone 5 mg tablet 5 mg PO BID@0900,1700 acetaminophen 325 mg tablet 650 mg PO Q6H PRN (Reason: Pain (Scale Score 1-3)) aspirin 81 mg tablet,delayed release (DR/EC) 81 mg PO DAILY@1200 bupropion HCl 100 mg tablet sustained-release 12 hr 100 mg PO DAILY carvedilol 3.125 mg tablet 3.125 mg PO BID@0900,1700 alprazolam 0.5 mg tablet 0.5 mg PO TID@0900,1700,2100 carboxymethylcellulose sodium [Refresh Tears] 0.5 % Drops 1 drp OPHTHALMIC (EYE) Q4H PRN (Reason: Dry Eyes) insulin aspart U-100 [Novolog U-100 Insulin aspart] 100 unit/mL solution See Protocol subcut TIDAC Protocol: Insulin Correction Scale Less than or equal to 110 ---- Give (units): 0 111 to 150 Give (units): 0 151 to 200 Give (units): 2 201 to 250 Give (units): 4 251 to 300 Give (units): 6 301 to 350 Give (units): 8 Greater than 350 Give (units): 10 Call MD if Blood Glucose > : 350 losartan 100 mg tablet 100 mg PO DAILY rosuvastatin 5 mg tablet 5 mg PO Q2D@1700 mirtazapine 7.5 mg tablet 7.5 mg PO BEDTIME Levemir U-100 Insulin 100 unit/mL solution 6 unit subcut DAILY@0700 nystatin 100,000 unit/gram ointment 1 appl TOPICAL BID PRN (Reason: Rash) Levemir U-100 Insulin 100 unit/mL solution 3 unit subcut DAILY@1900 cholecalciferol (vitamin D3) 25 mcg (1,000 unit) Tablet 25 mcg PO DAILY ferrous sulfate 325 mg (65 mg iron) tablet 325 mg PO Q2D@0900 Pepcid Complete 10-800-165 mg tablet,chewable 1 tab PO DAILY PRN (Reason: Acid Reflux) Rocklatan 0.02-0.005 % drops 1 drp ophthalmic-Right BEDTIME bumetanide 0.5 mg tablet 0.5 mg PO Q4D Discharge Orders: Discharge Order (Routine); Ordered 07/28/22 Ordered By: George Santos Diet: Advance to usual diet Activity on Discharge: As tolerated Stand Alone Forms: Patient Portal Discharge page Care Plan Goals: recovery from pneumonia Health Concerns: pneumonia, hypoxia, encephalopathy Plan of Treatment: cefuroxime 500 mg twice daily x 3 days resume VNA services Please follow up with your primary care doctor within 1 week. Return to the hospital if you experience recurrent or worsening symptoms. Assessment: See Discharge Summary. Patient Instructions: Pneumonia (DC)
[2022-07-28 10:02] VITALS: BP 102/73; PULSE 84; O2SAT 91
--- NOTE | 2022-07-28 10:08 | MHC.CM.PN ---
PT MEDICALLY CLEARED FOR D/C HOME W/[facility]UMP OF [facility], PT'S S.O. FOR TRANSPORT
[2022-07-28 11:27] LABS: Glucose, Whole Blood 302 mg/dL (60-115)
[2022-07-28] MEDS: Aspirin Enteric Coated 81 MG TABLET.DR PO (11:46)
[2022-07-28] MEDS: Heparin Sodium,Porcine 5,000 UNIT/ML VIAL 5000 UNIT SUBCUT (11:46)
[2022-07-28 11:49] VITALS: BP 147/68; PULSE 73; RESP 18; TEMP 36.6; O2SAT 91
[2022-07-28 15:51] VITALS: BP 117/68; PULSE 78; RESP 17; TEMP 36.4; O2SAT 94
[2022-07-28 16:15] LABS: Glucose, Whole Blood 133 mg/dL (60-115)
== END 2022-07-28 17:11 | disposition home health service (06) | DRG 193 ==
LOC: HO.ED 23:13 → HO.EDOVER 23:29 → HO.S3 07-23 19:02
PROVIDERS: Internal Medicine; Admitting Provider Internal Medicine; Emergency Provider Student in an Organized Health Care Education/Training Program; PCP Physician Assistant Medical; Visit Provider Family Medicine
DX: J18.9 Pneumonia, unspecified organism (principal); G92.8 Other toxic encephalopathy; J96.01 Acute respiratory failure with hypoxia; N39.0 Urinary tract infection, site not specified; E11.65 Type 2 diabetes mellitus with hyperglycemia; E11.40 Type 2 diabetes mellitus with diabetic neuropathy, unspecified; F32.A Depression, unspecified; F41.9 Anxiety disorder, unspecified; Z20.822 Contact with and (suspected) exposure to COVID-19; Z88.1 Allergy status to other antibiotic agents; Z88.5 Allergy status to narcotic agent; Z88.8 Allergy status to other drugs, medicaments and biological substances; Z79.4 Long term (current) use of insulin; Z79.82 Long term (current) use of aspirin; Z79.899 Other long term (current) drug therapy
CPT/HCPCS: 36415; 70450; 71045; 80048; 80076; 80202; 81001; 82565; 82947; 83036; 83605; 83690; 84145; 84295; 84484; 84520; 85025; 85610; 87040; 87086; 87147; 87205; 87633; 87635; 93005; 96360; 97110; 97116; 97162; 99285; J0456; J0696; J3370

== ENCOUNTER 2022-07-29 14:36 | Emergency (ER) | payer MEDICARE, OTHER, SELFPAY ==
[2022-07-29] VITALS (7 sets, daily range): BP systolic 133–179; BP diastolic 75–98; PULSE 78–83; RESP 15–23; TEMP 36.7; O2SAT 90–98; BMI 20.3; BMI 20.7
--- NOTE | ~2022-07-29 | CT_ITS ---
EXAMINATION: CT HEAD WITHOUT CONTRAST (STROKE PROTOCOL) CLINICAL INFORMATION: Stroke protocol. Acute left-sided weakness. COMPARISON: CT had noncontrast 07/22/2022 TECHNIQUE: Contiguous axial imaging was performed from the skull base to vertex without intravenous administration of contrast. Additional 2-D coronal reformatted images are generated on the CT workstation uploaded to PACS. This CT examination was performed using dose optimization techniques as appropriate, variously including the following: *Automated exposure control *Adjustment of mA and/or kV according to patient size (this includes techniques or standardized protocols for targeted exams where dose is matched to indication/reason for exam; i.e. extremities or head) *Use of iterative reconstruction technique DLP: 643 mGy-cm FINDINGS: There is focal high attenuation within the distal right M1 artery approximately 0.5 cm in length suspicious for acute thrombus, not appreciated on prior exam 07/22/2022. Recommend correlation with CT angiography head and neck. There is no intracranial hemorrhage, hematoma, or extra-axial fluid collection. The ventricles are normal in size. There is no hydrocephalus, edema, or mass effect. The boston-white matter differentiation appears well preserved . There is no visible acute territorial infarct or mass lesion. The calvarium appears intact. There is no pneumocephalus or orbital emphysema. The visualized sinuses and middle ears and mastoid air cells show no significant mucosal thickening. There are no air-fluid levels. Results called and discussed with Dr. Baez in the emergency department at [address]/CT head for stroke IMPRESSION: -Focal high attenuation distal right M1 artery 0.5 cm length suspicious for acute thrombus, not appreciated on prior exam 07/22/2022. Recommend correlation with CTA head and neck. -No intracranial hemorrhage, hematoma, hydrocephalus, or mass effect. No acute territorial infarct appreciated this time.
--- NOTE | ~2022-07-29 | CT_ITS ---
EXAMINATION: CTA NECK WITH CONTRAST (STROKE) CTA BRAIN WITH CONTRAST (STROKE) CLINICAL INFORMATION: Left-sided weakness. COMPARISON: CT scan of the head earlier 07/29/2022. TECHNIQUE: Test bolus sequences followed by intravenous administration 70 mL ofOmnipaque 350. Helical imaging was performed in the axial plane from the upper neck to the skull vertex. The aortic arch and origins of the great vessels of the neck were not included on the view by request from the ED to promptly triage the patient. Delayed postcontrast imaging of the head was also performed. The data was processed at the dairy manufacturing technologist workstation for generation of MIP sequences. The degree of stenosis is based off NASCET criteria. Three-dimensional volume rendered reformatted images were also generated at an offline 3-D workstation. DLP: 1315 mGy-cm. FINDINGS: CT Head: There is no evidence of acute intracranial hemorrhage or territorial infarction, and boston-white differentiation appears maintained. No abnormal mass-effect or midline shift is seen. No extra-axial fluid collections are identified. There are extensive calcifications of the bilateral vertebral and cavernous internal carotid arteries. There is no abnormal enhancement. The ventricles and sulci are commensurately prominent consistent with mild diffuse volume loss. There are scattered areas of low attenuation in the periventricular and subcortical white matter, most consistent with chronic microvascular ischemic disease. There are no acute osseous findings. The soft tissues are unremarkable. There have been bilateral lens extractions. The osseous structures and soft tissues are normal. The mastoid air cells and visualized portions of the paranasal sinuses are well-aerated. CTA Neck: As described above, the aortic arch and origins of the great vessels of the neck are not included on the field of view of this study. The common carotid arteries are patent bilaterally. There are extensive atheromatous calcifications at the carotid bifurcations bilaterally, with approximately 50% stenosis of the carotid bifurcations bilaterally. The cervical internal carotid arteries are patent with relatively uniform caliber bilaterally. There are atherosclerotic calcifications in the distal right cervical internal carotid artery just proximal to the petrous region. The origins of the vertebral arteries are not included in the [id number]. Both vertebral arteries are patent throughout their cervical course extending intracranially. They are codominant. Nonvascular: The lung kennedy are poorly evaluated on this study. There is a small calcified nodule in the right thyroid gland posteriorly. There is no cervical lymphadenopathy. There are no acute osseous findings; there are multilevel facet arthritic changes and spondylosis. CTA Head: As described above are calcifications in the bilateral cavernous internal carotid arteries with relatively narrow lumens. No definite focal effusion is demonstrated. The supraclinoid internal carotid arteries are patent bilaterally. 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 There is decreased arborization of the right middle cerebral artery branches compared to the left. The left middle cerebral artery is widely patent. The A1 segment of the right anterior cerebral artery is slightly thinner compared to the left but is patent with uniform caliber. The anterior cerebral arteries are widely patent bilaterally. The anterior communicating artery is normal. In the posterior circulation the vertebral arteries are codominant. There are atheromatous calcifications of the proximal intradural vertebral arteries bilaterally. Both vertebral arteries have uniform caliber. The basilar artery appears normal. There is a origin of the right posterior cerebral artery. The posterior cerebral arteries bilaterally are patent. There is good opacification of the dural venous sinuses. CT/CT angio head neck stroke IMPRESSION: CT head and neck: 1. There are no acute bleeds or territorial infarcts. 2. There are no intracranial masses or areas of abnormal enhancement. 3. There is no cervical lymphadenopathy and there are no masses in the neck. CTA head and neck: 1. There is acute occlusion of the distal aspect of the M1 segment of the right middle cerebral artery, with decreased arborization distal to this. 2. There are atherosclerotic calcifications at the carotid bifurcations with approximately 50% stenosis bilaterally as described above. 3. There are relatively extensive intracranial vascular calcifications. This critical result was discussed with Hellen Baez by telephone on 07/29/2022 at 3:41 PM and it was ascertained that the content and urgency of the report was understood at the time of direct communication.
--- NOTE | ~2022-07-29 | XR_ITS ---
EXAMINATION: XR CHEST CLINICAL INFORMATION: Stroke symptoms COMPARISON: July 22, [address] scan of January 07, 2021 TECHNIQUE: AP portable view of the chest was obtained. FINDINGS: The cardiopericardial silhouette is enlarged. No definite airspace edema is appreciated however there are coarse interstitial markings seen bilaterally which appear to be chronic. There is some retrocardiac disease present likely related to combination of atelectasis and pleural fluid. There appears be a small right pleural effusion. No pneumothorax identified. There is deformity of the left femoral head. There is calcific tendinitis of the right shoulder. XR/XR chest 1V IMPRESSION: Chronic interstitial lung disease. Probable small bilateral pleural effusions. Left lower lobe disease which may be related to atelectasis or pneumonitis.
--- NOTE | 2022-07-29 14:43 | ECG_ITS ---
Test Reason : STROKE Blood Pressure : / mmHG Vent. Rate : 080 BPM Atrial Rate : 080 BPM P-R Int : 206 ms QRS Dur : 086 ms QT Int : 402 ms P-R-T Axes : 066 067 253 degrees QTc Int : 463 ms Normal sinus rhythm Left ventricular hypertrophy with repolarization abnormality ( [place] product ) Possible Inferior infarct , age undetermined Abnormal ECG When compared with ECG of 22-JUL-2022 22:19, T wave inversion now evident in Inferior leads Referred By: Hellen Baez Electronically Signed By:MAYURI HERNÁNDEZ MD
[2022-07-29 14:46] LABS: Glucose, Whole Blood 172 mg/dL (60-115)
[2022-07-29 14:50] LABS: Prothrombin Time Whole Bld POC 11.6 sec (11.1-13.5)
--- NOTE | 2022-07-29 14:57 | PHA.MEDREC ---
Pharmacy Consult ? Medication Reconciliation Pharmacy has completed the medication reconciliation. Used list from discharge yesterday 08/28
--- NOTE | 2022-07-29 15:03 | ED.NEUROSD ---
HPI - Neuro Symptoms/Deficit General Chief Complaint: Stroke Stated Complaint: STROKE ALERT Time Seen by Provider: 07/29/22 14:41 Source: patient and old records reviewed Mode of arrival: EMS Limitations: altered mental status History of Present Illness HPI Narrative: 81 yo female with hx of diabetes, cellulitis, pneumonia - GERD, recent admission here with DC on 07/28 for pneumonia with hypoxia and encephalopathy completed cephalosporin and azithromycin. I do not see any prior bleeding issues/stroke/afib. Reportedly went to the bathroom today and spouse noted 30 minutes INDUSTRI[employer]IST the patient developed L sided hemiparesis. BP and glucose stable with EMS. NO trauma reported. NO blood thinners on the list. The patient tells me that she doesn't know what happened but she thought maybe her back was giving her problems again Onset (ago): minute(s) (30) Timing confirmed by: spouse Location: left face, left arm, left leg and altered History of same: No Severity: moderate Quality: weak Relieving factors: none Exacerbating factors: none Context: sudden onset On Anticoagulants: No Associated symptoms: confusion and weakness Treatments Prior to Arrival: none Related Data Home Medications Medication Instructions Recorded Confirmed acetaminophen 325 mg tablet 650 mg PO Q6H PRN Pain (Scale 01/07/21 07/29/22 Score 1-3) alprazolam 0.5 mg tablet 0.5 mg PO TID@0900,1700,2100 01/07/21 07/29/22 aspirin 81 mg tablet,delayed 81 mg PO DAILY@1200 01/07/21 07/29/22 release bupropion HCl 100 mg tablet,12 hr 100 mg PO DAILY 01/07/21 07/29/22 sustained-release buspirone 5 mg tablet 5 mg PO BID@0900,1700 01/07/21 07/29/22 carboxymethylcellulose sodium 0.5 1 drp ophthalmic (eye) Q4H PRN Dry 01/07/21 07/29/22 % eye drops (Refresh Tears) Eyes carvedilol 3.125 mg tablet 3.125 mg PO BID@0900,1700 01/07/21 07/29/22 insulin aspart U-100 100 unit/mL See Protocol subcut TIDAC 01/07/21 07/29/22 subcutaneous solution (Novolog U-100 Insulin aspart) insulin detemir U-100 100 unit/mL 6 unit subcut DAILY@0700 01/07/21 07/29/22 subcutaneous solution (Levemir U-100 Insulin) losartan 100 mg tablet 100 mg PO DAILY 01/07/21 07/29/22 mirtazapine 7.5 mg tablet 7.5 mg PO BEDTIME 01/07/21 07/29/22 rosuvastatin 5 mg tablet 5 mg PO Q2D@1700 01/07/21 07/29/22 bumetanide 0.5 mg tablet 0.5 mg PO Q4D 08/25/21 07/29/22 netarsudil 0.02 %-latanoprost 1 drp ophthalmic-Right BEDTIME 08/25/21 07/29/22 0.005 % eye drops (Rocklatan) famotidine-Ca carb-mag hydrox 10 1 tab PO DAILY PRN Acid Reflux 12/18/21 07/29/22 mg-800 mg-165 mg chewable tablet (Pepcid Complete) ferrous sulfate 325 mg (65 mg 325 mg PO Q2D@0900 12/18/21 07/29/22 iron) tablet cholecalciferol (vitamin D3) 25 25 mcg PO DAILY 07/23/22 07/29/22 mcg (1,000 unit) tablet insulin detemir U-100 100 unit/mL 3 unit subcut DAILY@1900 07/23/22 07/29/22 subcutaneous solution (Levemir U-100 Insulin) nystatin 100,000 unit/gram topical 1 appl topical BID PRN Rash 07/23/22 07/29/22 ointment Previous Rx's Medication Instructions Recorded cefuroxime axetil 500 mg tablet 500 mg PO BID #6 tabs 07/28/22 Allergies Allergy/AdvReac Type Severity Reaction Status Date / Time citalopram [Celexa] Allergy Unknown Unknown Verified 04/10/22 14:25 codeine [Codeine] Allergy Unknown ABLE TO Verified 04/10/22 14:25 TAKE IN VERY SMALL AMOUNTS, DIZZY WITH LARGE AMTS doxycycline Allergy Unknown Unknown Verified 04/10/22 14:25 Codeine Allergy Unknown Unknown Uncoded 04/10/22 14:25 Codeine Phosphate Allergy Unknown Unknown Uncoded 04/10/22 14:25 Doxycycline Hyclate Allergy Unknown Unknown Uncoded 04/10/22 14:25 novolin n Allergy Unknown Unknown Uncoded 04/10/22 14:25 Review of Systems Review of Systems: ROS unable to be obtained due to altered mental status [facility] Past Medical History Attestation statement: The following information was validated with the patient. Medical History Constipation Diabetes Diabetic foot ulcer Glaucoma Lumbar compression fracture Macular degeneration Neuropathy Osteopenia Osteoporosis Prolapsed bladder Toe amputee Family History Family History Other No family history of coronary artery disease Social History Social History Household Members: Significant Other Housing: [facility] Do you presently have visiting nurse or other home services: Yes Alcohol intake: never Patient Tobacco Use Status: Never used Tobacco Second Hand Smoke Exposure: No Use of substances other than those prescribed or required for medical reasons: No Advance Directives: No Advance Directives Information Provided: No service: No Current occupational status: disabled Physical Exam Vital Signs: Vital Signs: Last Vital Signs Temp 98.1 F 07/29/22 15:14 Pulse 83 07/29/22 16:28 Resp 18 07/29/22 16:28 BP 170/86 H 07/29/22 16:28 Pulse Ox 98 07/29/22 16:28 O2 Del Method 07/29/22 16:28 O2 Flow Rate 2 07/29/22 16:28 BMI result Body Mass Index 20.7 Appearance: Alert. Oriented X2. Moderate acute distress. Eyes: R pupil 3mm ERRL, L pupil opacified old cataract ENT: Pharynx normal. tolerating secretions Neck: Normal inspection. Neck supple. CVS: Normal heart rate and rhythm. Pulses normal. Respiratory: No respiratory distress. Breath sounds normal. Abdomen: Soft and non-tender. Skin: Skin warm and dry. pale skin color. Normal skin turgor. Extremities: No lower extremity edema. No calf ttp Neuro: Oriented X 2. L sided weakness dense hemiparesis on arrival then in CT scan 3/5 LUE and LLE, L sided facial droop eye and mouth. Confused. Clear speech. No sensory deficit. Course Course Course Narrative: Dr. Fernandez at bedside 307pm - tPa drawn up and ready - at this time he wants to push the tPa after seeing the patient and review of CT scans. no ICH seen patient is improving, following commands, knows her name, thinks she is at home. 4/5 LLE and 4/5 UE, facial droop is clearing up - post tPa. IV labetalol ordered for BP 200 down to 150 CTA read: occlusion R MCA just at distal M1 segment , didn't include aortic arch didn't go low enough on study. 345pm - Neurology recommends [place] [facility] [place] thrombus page sent out to [facility] [address]pm. accepted by Dr. Choudhury to [facility] ED 404pm using left hand now to touch her face, able to raise L leg now, BP under 180 Erika partner at bedside - aware of plan, confirmed timing that EMS provided. His cell phone numbers he can be reached at are [phone], signed out to Dr. Kathryn FISH CT/CT head for stroke IMPRESSION: -Focal high attenuation distal right M1 artery 0.5 cm length suspicious for acute thrombus, not appreciated on prior exam 07/22/2022. Recommend correlation with CTA head and neck. ? -No intracranial hemorrhage, hematoma, hydrocephalus, or mass effect. No acute territorial infarct appreciated this time. FINDINGS: There is focal high attenuation within the distal right M1 artery approximately 0.5 cm in length suspicious for acute thrombus, not appreciated on prior exam 07/22/2022. Recommend correlation with CT angiography head and neck. There is no intracranial hemorrhage, hematoma, or extra-axial fluid collection.? The ventricles are normal in size. There is no hydrocephalus, edema, or mass effect.? The boston-white matter differentiation appears well preserved . There is no visible acute territorial infarct or mass lesion. The calvarium appears intact. There is no pneumocephalus or orbital emphysema.? The visualized sinuses and middle ears and mastoid air cells show no significant mucosal thickening. There are no air-fluid levels. Results called and discussed with Dr. Baez in the emergency department at [address]/CT head for stroke IMPRESSION: -Focal high attenuation distal right M1 artery 0.5 cm length suspicious for acute thrombus, not appreciated on prior exam 07/22/2022. Recommend correlation with CTA head and neck. ? -No intracranial hemorrhage, hematoma, hydrocephalus, or mass effect. No acute territorial infarct appreciated this time. MDM - Neuro Symptoms/Deficit MDM Narrative Medical decision making narrative: 81 yo female with hx of diabetes, cellulitis, pneumonia - GERD, recent admission here with DC on 07/28 for pneumonia with hypoxia and encephalopathy presents with 30 minutes of L sided hemiparesis no trauma reported - no known contraindications from patient or EMR for tPa. I have called her house phone and emergency contact whom she was with and it went straight to voicemail. The patient is a candidate for tPa presumed MCA stroke at this time. Sent to CT scanner, CTA ordered - normal Cr yesterday. Neurology aware to come see patient in ED. tPa drawn up and ready at bedside per their recommendations. Lab Data Result diagrams: 07/29/22 15:00 07/29/22 15:00 Labs: Lab Results 07/29/22 07/29/22 07/29/22 Range/Units 14:41 14:47 15:00 WBC 4.2 L (4.8-10.8) X10*3/uL RBC 3.16 L D (4.20-5.50) X10*6/uL Hgb 10.0 L D (12.0-16.0) g/dl Hct 30.0 L D (37.0-47.0) % MCV 94.9 (80.0-98.0) fL MCH 31.6 (27.0-33.0) pg MCHC 33.3 (31.0-35.0) g/dl RDW 12.0 (11.0-16.0) % Plt Count 185 (160-400) X10*3/uL MPV 9.9 (9.4-12.3) fL Immature Gran % (Auto) 0.2 (0.0-0.4) % Neut % (Auto) 47.8 (45-73) % Lymph % (Auto) 31.3 (20-40) % [place] % (Auto) 11.8 H (2-11) % Eos % (Auto) 7.9 H (0-4) % Baso % (Auto) 1.0 (0-2) % Lymph # (Auto) 1.3 (1.2-4.9) X10*3/uL [place] # (Auto) 0.5 (0.1-1.2) X10*3/uL Eos # (Auto) 0.3 (0.0-0.4) X10*3/uL Baso # (Auto) 0.0 (0.0-0.2) X10*3/uL Abs Immat Gran (auto) 0.01 (0.00-0.03) X10*3/uL Absolute Neuts (auto) 2.0 (2.0-8.3) x10*3/uL Absolute Nucleated RBC 0.000 (0.0-0.012) X10*3/uL Nucleated RBC % (auto) 0.0 (0.0-0.2) /100WBC PT (10.0-13.1) SEC Whole Blood PT 11.6 (11.1-13.5) sec INR (0.9-1.1) Whole Blood INR 1.0 (0.9-1.1) APTT (26.0-36.4) SEC Sodium (135-145) mmol/L Potassium (3.3-5.1) mmol/L Chloride (96-108) mmol/L Carbon Dioxide (22-29) mmol/L Anion Gap (12-20) BUN (9-16) mg/dL Creatinine (0.5-1.4) mg/dL Estim Creat Clear Calc Estimated GFR POC Glucose 172 H (60-115) mg/dL Random Glucose (60-115) mg/dL Lactic Acid (0.5-2.0) mmol/L Calcium (8.4-10.2) mg/dL Magnesium (1.6-2.6) mg/dL Total Bilirubin (0.0-1.0) mg/dL Direct Bilirubin (0.0-0.5) mg/dL AST (5-31) U/L ALT (0-31) U/L Alkaline Phosphatase (39-117) U/L Troponin I High Sens (<3.5-17.0) ng/L Total Protein (6.5-8.0) g/dL Albumin (3.5-5.0) g/dL COVID-19 (LILLY) (Negative) COVID-19 Clin Com 07/29/22 07/29/22 07/29/22 Range/Units 15:00 15:00 15:00 WBC (4.8-10.8) X10*3/uL RBC (4.20-5.50) X10*6/uL Hgb (12.0-16.0) g/dl Hct (37.0-47.0) % MCV (80.0-98.0) fL MCH (27.0-33.0) pg MCHC (31.0-35.0) g/dl RDW (11.0-16.0) % Plt Count (160-400) X10*3/uL MPV (9.4-12.3) fL Immature Gran % (Auto) (0.0-0.4) % Neut % (Auto) (45-73) % Lymph % (Auto) (20-40) % [place] % (Auto) (2-11) % Eos % (Auto) (0-4) % Baso % (Auto) (0-2) % Lymph # (Auto) (1.2-4.9) X10*3/uL [place] # (Auto) (0.1-1.2) X10*3/uL Eos # (Auto) (0.0-0.4) X10*3/uL Baso # (Auto) (0.0-0.2) X10*3/uL Abs Immat Gran (auto) (0.00-0.03) X10*3/uL Absolute Neuts (auto) (2.0-8.3) x10*3/uL Absolute Nucleated RBC (0.0-0.012) X10*3/uL Nucleated RBC % (auto) (0.0-0.2) /100WBC PT 11.4 (10.0-13.1) SEC Whole Blood PT (11.1-13.5) sec INR 1.0 (0.9-1.1) Whole Blood INR (0.9-1.1) APTT 30.3 (26.0-36.4) SEC Sodium 133 L (135-145) mmol/L Potassium 4.7 (3.3-5.1) mmol/L Chloride 98 (96-108) mmol/L Carbon Dioxide 26 (22-29) mmol/L Anion Gap 14 (12-20) BUN 22 H (9-16) mg/dL Creatinine 0.84 (0.5-1.4) mg/dL Estim Creat Clear Calc 51.4 Estimated GFR > 60 POC Glucose (60-115) mg/dL Random Glucose 183 H (60-115) mg/dL Lactic Acid (0.5-2.0) mmol/L Calcium 8.1 L (8.4-10.2) mg/dL Magnesium 1.8 (1.6-2.6) mg/dL Total Bilirubin < 0.2 (0.0-1.0) mg/dL Direct Bilirubin < 0.2 (0.0-0.5) mg/dL AST 26 (5-31) U/L ALT 18 (0-31) U/L Alkaline Phosphatase 94 D (39-117) U/L Troponin I High Sens 221.5 H* D (<3.5-17.0) ng/L Total Protein 5.7 L D (6.5-8.0) g/dL Albumin 3.1 L (3.5-5.0) g/dL COVID-19 (LILLY) (Negative) COVID-19 Clin Com 07/29/22 07/29/22 Range/Units 15:24 15:35 WBC (4.8-10.8) X10*3/uL RBC (4.20-5.50) X10*6/uL Hgb (12.0-16.0) g/dl Hct (37.0-47.0) % MCV (80.0-98.0) fL MCH (27.0-33.0) pg MCHC (31.0-35.0) g/dl RDW (11.0-16.0) % Plt Count (160-400) X10*3/uL MPV (9.4-12.3) fL Immature Gran % (Auto) (0.0-0.4) % Neut % (Auto) (45-73) % Lymph % (Auto) (20-40) % [place] % (Auto) (2-11) % Eos % (Auto) (0-4) % Baso % (Auto) (0-2) % Lymph # (Auto) (1.2-4.9) X10*3/uL [place] # (Auto) (0.1-1.2) X10*3/uL Eos # (Auto) (0.0-0.4) X10*3/uL Baso # (Auto) (0.0-0.2) X10*3/uL Abs Immat Gran (auto) (0.00-0.03) X10*3/uL Absolute Neuts (auto) (2.0-8.3) x10*3/uL Absolute Nucleated RBC (0.0-0.012) X10*3/uL Nucleated RBC % (auto) (0.0-0.2) /100WBC PT (10.0-13.1) SEC Whole Blood PT (11.1-13.5) sec INR (0.9-1.1) Whole Blood INR (0.9-1.1) APTT (26.0-36.4) SEC Sodium (135-145) mmol/L Potassium (3.3-5.1) mmol/L Chloride (96-108) mmol/L Carbon Dioxide (22-29) mmol/L Anion Gap (12-20) BUN (9-16) mg/dL Creatinine (0.5-1.4) mg/dL Estim Creat Clear Calc Estimated GFR POC Glucose (60-115) mg/dL Random Glucose (60-115) mg/dL Lactic Acid 1.0 (0.5-2.0) mmol/L Calcium (8.4-10.2) mg/dL Magnesium (1.6-2.6) mg/dL Total Bilirubin (0.0-1.0) mg/dL Direct Bilirubin (0.0-0.5) mg/dL AST (5-31) U/L ALT (0-31) U/L Alkaline Phosphatase (39-117) U/L Troponin I High Sens (<3.5-17.0) ng/L Total Protein (6.5-8.0) g/dL Albumin (3.5-5.0) g/dL COVID-19 (LILLY) Negative (Negative) COVID-19 Clin Com See Note ECG Data Attestation: I personally reviewed and interpreted this ECG as follows: ECG interpretation date: 07/29/22 ECG interpretation time: 15:51 Interpretation: Rate: 80 Rhythm: NSR [place]: normal , LVH Normal P waves. Normal JUSTIN. Normal QRS complex. ST T wave : ST depressions V4-V6, inf leads, no CHRISTOPHER qTC: normal prior studies: no change occlusion The study has been interpreted contemporaneously by me. . NIH Stroke Scale Internal: Initial- Upon Arrival Level of Consciousness: Alert Level of Consciousness Questions: Answers one question correctly Level of Consciousness Commands: Performs one task correctly Best Gaze: Normal Visual: No visual loss Facial Palsy: Partial paralysis Motor Arm (Right): No drift Motor Arm (Left): No effort against gravity Motor Leg (Right): No drift Motor Leg (Left): No effort against gravity Limb Ataxia: Absent Sensory: Normal Best Language: No aphasia Dysarthia: Normal Extinction and Inattention: Visual, tactile, auditory, spatial, or personal inattention Score: 11 Critical Care Time Critical Care Time Critical Care Time: Yes Total Critical Care Time: 60 Attestation: stroke protocol, medical consult, bedside assessments, IV BP medications, transfer to tertiary center I attest to this time spent taking care of the patient Discharge Plan Discharge Clinical Impression: Acute CVA (cerebrovascular accident), Elevated troponin Patient Disposition: [facility] Transfer Details: [facility] Prescriptions: No Action buspirone 5 mg tablet 5 mg PO BID@0900,1700 acetaminophen 325 mg tablet 650 mg PO Q6H PRN (Reason: Pain (Scale Score 1-3)) aspirin 81 mg tablet,delayed release (DR/EC) 81 mg PO DAILY@1200 bupropion HCl 100 mg tablet sustained-release 12 hr 100 mg PO DAILY carvedilol 3.125 mg tablet 3.125 mg PO BID@0900,1700 alprazolam 0.5 mg tablet 0.5 mg PO TID@0900,1700,2100 carboxymethylcellulose sodium [Refresh Tears] 0.5 % Drops 1 drp OPHTHALMIC (EYE) Q4H PRN (Reason: Dry Eyes) insulin aspart U-100 [Novolog U-100 Insulin aspart] 100 unit/mL solution See Protocol subcut TIDA Protocol: Insulin Correction Scale Less than or equal to 110 ---- Give (units): 0 111 to 150 Give (units): 0 151 to 200 Give (units): 2 201 to 250 Give (units): 4 251 to 300 Give (units): 6 301 to 350 Give (units): 8 Greater than 350 Give (units): 10 Call MD if Blood Glucose > : 350 losartan 100 mg tablet 100 mg PO DAILY rosuvastatin 5 mg tablet 5 mg PO Q2D@1700 mirtazapine 7.5 mg tablet 7.5 mg PO BEDTIME Levemir U-100 Insulin 100 unit/mL solution 6 unit subcut DAILY@0700 nystatin 100,000 unit/gram ointment 1 appl TOPICAL BID PRN (Reason: Rash) Levemir U-100 Insulin 100 unit/mL solution 3 unit subcut DAILY@1900 cholecalciferol (vitamin D3) 25 mcg (1,000 unit) Tablet 25 mcg PO DAILY cefuroxime axetil 500 mg tablet 500 mg PO BID Qty: 6 0RF ferrous sulfate 325 mg (65 mg iron) tablet 325 mg PO Q2D@0900 Pepcid Complete 10-800-165 mg tablet,chewable 1 tab PO DAILY PRN (Reason: Acid Reflux) Rocklatan 0.02-0.005 % drops 1 drp ophthalmic-Right BEDTIME bumetanide 0.5 mg tablet 0.5 mg PO Q4D
[2022-07-29 15:14] LABS: MANUAL DIFF FLAG NO
[2022-07-29 15:23] LABS: Eosinophils Absolute Auto 0.3 X10*3/uL (0.0-0.4); Eosinophils Percent Auto 7.9 % (0-4); Imm Gran Abs Auto 0.01 X10*3/uL (0.00-0.03); Imm Gran Pct Auto 0.2 % (0.0-0.4); Lymphocytes Absolute Auto 1.3 X10*3/uL (1.2-4.9); Lymphocytes Percent Auto 31.3 % (20-40); Mean Corpuscular HGB Conc 33.3 g/dl (31.0-35.0); Mean Corpuscular Hemoglobin 31.6 pg (27.0-33.0); Mean Corpuscular Volume 94.9 fL (80.0-98.0); Mean Platelet Volume 9.9 fL (9.4-12.3); Monocytes Absolute Auto 0.5 X10*3/uL (0.1-1.2); Monocytes Percent Auto 11.8 % (2-11); Neutrophils Percent Auto 47.8 % (45-73); Platelet Count 185 X10*3/uL (160-400); Red Blood Count 3.16 X10*6/uL (4.20-5.50); White Blood Count 4.2 X10*3/uL (4.8-10.8)
[2022-07-29 15:25] LABS: Prothrombin Time 11.4 SEC (10.0-13.1)
[2022-07-29 15:28] LABS: Partial Thromboplastin Time 30.3 SEC (26.0-36.4)
--- NOTE | 2022-07-29 15:34 | PC.NURSE ---
Addendum entered by Kat Florez 07/29/22 16:18: Pt has no vision on the left eye. Original Note: Pt came straight to the CT scan, Pt has 2 IV 20G access, pt is on the telemetry BP is lower than 180. Pt has facial dropping, left side weakness that has been improving her left hand strenght. Pt TPA is running and started at 1514, BP was taken. Pt is a/o x4, pt is talking and able to swallow and cough. Pt connected to a nasal cunnula d/t o2 was 88% when arrival.
[2022-07-29 15:40] LABS: Alanine Aminotransferase 18 U/L (0-31); Albumin Level 3.1 g/dL (3.5-5.0); Alkaline Phosphatase 94 U/L (39-117); Anion Gap 14 (12-20); Aspartate Amino Transferase 26 U/L (5-31); Bilirubin Direct < 0.2 mg/dL (0.0-0.5); Bilirubin Total < 0.2 mg/dL (0.0-1.0); Blood Urea Nitrogen 22 mg/dL (9-16); Calcium 8.1 mg/dL (8.4-10.2); Carbon Dioxide 26 mmol/L (22-29); Chloride 98 mmol/L (96-108); Creatinine Clr Calc Pharmacy 51.4; Estimated Glomerular Filt Rate > 60; Glucose Random 183 mg/dL (60-115); Magnesium 1.8 mg/dL (1.6-2.6); Potassium 4.7 mmol/L (3.3-5.1); Sodium 133 mmol/L (135-145); Total Protein 5.7 g/dL (6.5-8.0)
[2022-07-29 15:48] LABS: Troponin-I High Sensitivity 221.5 ng/L (<3.5-17.0)
[2022-07-29 15:52] LABS: COVID-19 Test Negative (Negative)
--- NOTE | 2022-07-29 16:08 | PC.NURSE ---
Addendum entered by Kat Florez 07/29/22 16:16: IVF are running 1000 ml/hr Original Note: Pt BF is at bedside, pt is taking, and alert. Pt TPA was switch to IVF per provider order. BP is being monitor every 15 mins.
--- NOTE | 2022-07-29 16:11 | MHC.STROKE ---
Addendum entered by Ragini Spicer RN 07/29/22 17:07: I GAVE AN ADDITIONAL REPORT TO THE EMT'S JUST PRIOR TO TRANSFER. DISCHARGED FROM ED AT 1708. Original Note: EMS PRE-NOTIFIED STROKE ALERT AT 1432, ARRIVED AT [address] MONTOYA, NIHSS = 11, ONSET 30 MINUTES PRIOR TO ARRIVAL 1406. DIRECT TO CT AND CTA, DR SANCHES AT BEDSIDE, SHE IS MOVING HER LEFT ARM AND LEG BUT NOT FOLLOWING COMMANDS WELL, HE REVIEWED THE CT HEAD AND THEN AGREED WITH TPA-ALTEPLASE. DOOR-TO-TPA = 32MIN. OVER THE 30 MINUTES DUE TO CARE TEAM DETERMINING ELIGIBILITY, AND REVIEWING COMORBIDITIES. [place] [facility] [place] SHE LIVES WITH HER FRIEND CHANDNI PERRY, HE SAID SHE WAS FINE ALL MORNING AND THEN ALL OF A SUDDEN HER LEFT SIDE WAS WEAK AND SHE ALMOST FELL, HE CALLED 911. SHE FAILED SWALLOW SCREEN, BP'S BEING MONITORED. HER SYMPTOMS ARE SLIGHTLY IMPROVING. DR MONTOYA REPORTED TO ME THAT THE RIGHT M1 HAD A DISTAL CLOT AND THIS WAS REPORTED TO DR. SANCHES. WE ARE PLACING A CALL TO [facility] FOR POSSIBLE THROMBECTOMY. DR. AMRCUS BAUTISTA SPOKE WITH DR. MONTOYA AND HE HAS ACCEPTED THE PATIENT.
--- NOTE | 2022-07-29 16:19 | P.CNNE_ITS ---
History of Present Illness Data of Consult Service Date: 07/29/22 Primary Care Provider: JONATHAN Forte Reason for consult: Left-sided weakness 81 years old woman came to hospital with sudden onset of left-sided weakness. She recently was in hospital with unrelated symptoms. I saw her in emergency r oom in acute setting. She was not in any distress. Review of Systems Review of Systems: No recent seizure cold or flu-like illness PMFSH Past Medical History Medical History Constipation Diabetes Diabetic foot ulcer Glaucoma Lumbar compression fracture Macular degeneration Neuropathy Osteopenia Osteoporosis Prolapsed bladder Toe amputee Family History Family History Other No family history of coronary artery disease Social History Social History Household Members: Significant Other Housing: [facility] Do you presently have visiting nurse or other home services: Yes Alcohol intake: never Patient Tobacco Use Status: Never used Tobacco Second Hand Smoke Exposure: No Use of substances other than those prescribed or required for medical reasons: No Advance Directives: No Advance Directives Information Provided: No service: No Current occupational status: disabled Meds Allergies Allergy/AdvReac Type Severity Reaction Status Date / Time citalopram [Celexa] Allergy Unknown Unknown Verified 04/10/22 14:25 codeine [Codeine] Allergy Unknown ABLE TO Verified 04/10/22 14:25 TAKE IN VERY SMALL AMOUNTS, DIZZY WITH LARGE AMTS doxycycline Allergy Unknown Unknown Verified 04/10/22 14:25 Codeine Allergy Unknown Unknown Uncoded 04/10/22 14:25 Codeine Phosphate Allergy Unknown Unknown Uncoded 04/10/22 14:25 Doxycycline Hyclate Allergy Unknown Unknown Uncoded 04/10/22 14:25 novolin n Allergy Unknown Unknown Uncoded 04/10/22 14:25 Active Medications: Current Medications Pharmacy Consult (Consult Rx Perform Med Rec) 1 each MISCELLANE ONCE PRN PRN Reason: Consult order Home Medications Medication Instructions Recorded Confirmed Last Taken Type acetaminophen 325 mg tablet 650 mg PO Q6H PRN Pain (Scale 01/07/21 07/29/22 Unknown History Score 1-3) alprazolam 0.5 mg tablet 0.5 mg PO TID@0900,1700,2100 03/24/21 10/13/22 03/24/21 History aspirin 81 mg tablet,delayed 81 mg PO DAILY@1200 01/07/21 07/29/22 01/07/21 History release bupropion HCl 100 mg tablet,12 hr 100 mg PO DAILY 01/07/21 07/29/22 01/07/21 History sustained-release buspirone 5 mg tablet 5 mg PO BID@0900,1700 01/07/21 07/29/22 01/07/21 History carboxymethylcellulose sodium 0.5 1 drp ophthalmic (eye) Q4H PRN Dry 01/07/21 07/29/22 Unknown History % eye drops (Refresh Tears) Eyes carvedilol 3.125 mg tablet 3.125 mg PO BID@0900,1700 01/07/21 07/29/22 01/07/21 History insulin aspart U-100 100 unit/mL See Protocol subcut TIDAC 01/07/21 07/29/22 01/07/21 History subcutaneous solution (Novolog U-100 Insulin aspart) insulin detemir U-100 100 unit/mL 6 unit subcut DAILY@0700 01/07/21 07/29/22 01/07/21 History subcutaneous solution (Levemir U-100 Insulin) losartan 100 mg tablet 100 mg PO DAILY 01/07/21 07/29/22 01/07/21 History mirtazapine 7.5 mg tablet 7.5 mg PO BEDTIME 01/07/21 07/29/22 01/06/21 History rosuvastatin 5 mg tablet 5 mg PO Q2D@1700 01/07/21 07/29/22 01/07/21 History bumetanide 0.5 mg tablet 0.5 mg PO Q4D 08/25/21 07/29/22 Unknown History netarsudil 0.02 %-latanoprost 1 drp ophthalmic-Right BEDTIME 08/25/21 07/29/22 Unknown History 0.005 % eye drops (Rocklatan) famotidine-Ca carb-mag hydrox 10 1 tab PO DAILY PRN Acid Reflux 12/18/21 07/29/22 Unknown History mg-800 mg-165 mg chewable tablet (Pepcid Complete) ferrous sulfate 325 mg (65 mg 325 mg PO Q2D@0900 12/18/21 07/29/22 Unknown History iron) tablet cholecalciferol (vitamin D3) 25 25 mcg PO DAILY 07/23/22 07/29/22 Unknown History mcg (1,000 unit) tablet insulin detemir U-100 100 unit/mL 3 unit subcut DAILY@1900 07/23/22 07/29/22 Unknown History subcutaneous solution (Levemir U-100 Insulin) nystatin 100,000 unit/gram topical 1 appl topical BID PRN Rash 07/23/22 07/29/22 Unknown History ointment Physical Exam Vital Signs: Vital Signs: Last Vital Signs Temp 98.1 F 07/29/22 15:14 Pulse 82 07/29/22 16:10 Resp 15 07/29/22 16:10 BP 160/75 H 07/29/22 16:10 Pulse Ox 97 07/29/22 16:10 O2 Del Method 07/29/22 16:10 O2 Flow Rate 3 07/29/22 16:10 BMI result Body Mass Index 20.7 Neuro: Other: She was somewhat drowsy but able to open eyes and follow commands. There was no gaze deviation. Visual kennedy were difficult to determine as she stated that her vision was poor. There was mild left-sided facial central type of weakness. There was mild left hemiparesis arm more than leg with left extensor plantar. Results Labs CBC & Chem 7: 07/29/22 15:00 07/29/22 15:00 Labs: Short CBC 07/29/22 Range/Units 15:00 WBC 4.2 L (4.8-10.8) X10*3/uL Hgb 10.0 L D (12.0-16.0) g/dl Hct 30.0 L D (37.0-47.0) % Plt Count 185 (160-400) X10*3/uL BMP 07/29/22 15:00 Sodium 133 L Potassium 4.7 Chloride 98 Carbon Dioxide 26 BUN 22 H Creatinine 0.84 Calcium 8.1 L Liver Function 07/29/22 Range/Units 15:00 Total Bilirubin < 0.2 (0.0-1.0) mg/dL Direct Bilirubin < 0.2 (0.0-0.5) mg/dL AST 26 (5-31) U/L ALT 18 (0-31) U/L Alkaline Phosphatase 94 D (39-117) U/L Albumin 3.1 L (3.5-5.0) g/dL Head CT did not reveal any intracerebral hemorrhage. There was slight attenuation of her right distal MCA. Assessment and Plan (1) Acute CVA (cerebrovascular accident): Status: Inactive 81 years old woman who probably suffered from acute ischemic infarction and was treated with intravenous tPA. CTA was also done which revealed right distal M1 disease. My suggestion was to talk to tertiary care center to see if they would entertained intra-arterial treatment. If not, she could be admitted to ICU with tPA protocol. Procedures Date of Service Date of Service: 08/10/22
--- NOTE | 2022-07-29 16:32 | PC.NURSE ---
RN gave report to Maverick BERMUDEZ at [facility].
--- NOTE | 2022-07-29 17:28 | PC.NURSE ---
This RN gave report to Beth matute nurse at [facility] Clinical Researcher. at 17:59 p.m.
== END 2022-07-29 17:31 | disposition short-term general hospital (02) ==
PROVIDERS: Emergency Provider Emergency Medicine; PCP Physician Assistant Medical
DX: I63.511 Cerebral infarction due to unspecified occlusion or stenosis of right middle cerebral artery (principal); R77.8 Other specified abnormalities of plasma proteins; R29.711 NIHSS score 11; R29.810 Facial weakness; G81.94 Hemiplegia, unspecified affecting left nondominant side; E11.9 Type 2 diabetes mellitus without complications; Z20.822 Contact with and (suspected) exposure to COVID-19; Z79.899 Other long term (current) drug therapy; Z79.82 Long term (current) use of aspirin; Z79.4 Long term (current) use of insulin; Z79.02 Long term (current) use of antithrombotics/antiplatelets
CPT/HCPCS: 36415; 37195; 70450; 70496; 70498; 71045; 80048; 80076; 82947; 83605; 83735; 84484; 85025; 85610; 85730; 87040; 87635; 93005; 99285; J2997

== ENCOUNTER → 2022-11-16 14:03 | Outpatient (RCR) | payer MEDICARE, OTHER, SELFPAY | END | disposition home or self-care (01) | LOC: HO.WCC 01-27 14:02 | PROVIDERS: Visit Provider Physician Assistant | DX: E11.622 Type 2 diabetes mellitus with other skin ulcer (principal); E11.51 Type 2 diabetes mellitus with diabetic peripheral angiopathy without gangrene; I70.244 Atherosclerosis of native arteries of left leg with ulceration of heel and midfoot; L97.422 Non-pressure chronic ulcer of left heel and midfoot with fat layer exposed; I70.243 Atherosclerosis of native arteries of left leg with ulceration of ankle; L97.322 Non-pressure chronic ulcer of left ankle with fat layer exposed; E11.65 Type 2 diabetes mellitus with hyperglycemia; E11.40 Type 2 diabetes mellitus with diabetic neuropathy, unspecified; R60.0 Localized edema; I10 Essential (primary) hypertension; I25.10 Atherosclerotic heart disease of native coronary artery without angina pectoris; I25.2 Old myocardial infarction | CPT/HCPCS: 11042; 15271; 15275; 97597; 99212; 99213; Q4101; Q4158; Q4160; Q4186; Q4187 ==

== ENCOUNTER 2024-06-17 21:52 | Emergency (ER) | payer MEDICARE, OTHER, SELFPAY ==
--- NOTE | 2024-06-17 21:56 | ED_ITS ---
HPI - General Adult General Chief complaint: General Medical Stated complaint: unable to take care of self Time Seen by Provider: 06/17/24 21:55 Source: patient Mode of arrival: wheelchair Limitations: no limitations History of Present Illness ED Provider: Tsering Noyola PA-C HPI narrative: Patient is an 83 year old assigned female at with a history of CHF presenting to the emergency department today because she is unable to care for herself and her health care analyst is admitted to the hospital. Patient states that her partner is her primary health care analyst and he was just admitted at [facility] for osteomyelitis and she has no one she can contact or come help take care of her. Patient denies any dizziness, lightheadedness, abdominal pain, nausea, vomiting, fever, chills, blurry vision, double vision, loss of vision, chest pain, difficulty breathing, shortness of breath, back pain, night sweats, pain with urination, increased urinary frequency, increased urinary urgency, blood in her urine or stool, syncope or a near syncopal episode, recent trauma or falls, bowel incontinence, bladder incontinence, or any other complaints at this time. Relieving factors: none Exacerbating factors: none Associated symptoms: denies other symptoms Treatments prior to arrival: none Related Data Home Medications ?Medication ?Instructions ?Recorded ?Confirmed acetaminophen 325 mg tablet 650 mg PO Q6H PRN Pain (Scale 01/07/21 06/17/24 Score 1-3) alprazolam 0.5 mg tablet 0.5 mg PO QID 01/07/21 06/17/24 aspirin 81 mg tablet,delayed 81 mg PO DAILY@1200 01/07/21 06/17/24 release bupropion HCl 100 mg tablet,12 hr 100 mg PO DAILY 01/07/21 06/17/24 sustained-release buspirone 5 mg tablet 5 mg PO BID@0900,1700 01/07/21 06/17/24 mirtazapine 7.5 mg tablet 7.5 mg PO BEDTIME 01/07/21 06/17/24 ferrous sulfate 325 mg (65 mg 325 mg PO Q2D@0900 /02/0506/17/24 iron) tablet cholecalciferol (vitamin D3) 25 25 mcg PO DAILY 07/23/22 06/17/24 mcg (1,000 unit) tablet bumetanide 1 mg tablet 1 mg PO BID 06/17/24 06/17/24 clopidogrel 75 mg tablet 75 mg PO DAILY 06/17/24 06/17/24 ezetimibe 10 mg tablet 10 mg PO DAILY 06/17/24 06/17/24 gentamicin 0.1 % topical ointment appl topical TID 06/17/24 insulin glargine 100 unit/mL unit subcut 06/17/24 subcutaneous solution (Lantus U-100 Insulin) insulin lispro 100 unit/mL subcut 06/17/24 subcutaneous solution (Admelog U-100 Insulin lispro) losartan 25 mg tablet 25 mg PO DAILY 06/17/24 06/17/24 metoprolol succinate 25 mg 25 mg PO DAILY 06/17/24 06/17/24 tablet,extended release 24 hr Allergies Allergy/AdvReac Type Severity Reaction Status Date / Time citalopram [Celexa] Allergy Unknown Unknown Verified 06/17/24 22:29 codeine [Codeine] Allergy Unknown ABLE TO Verified 06/17/24 22:29 TAKE IN VERY SMALL AMOUNTS, DIZZY WITH LARGE AMTS doxycycline Allergy Unknown Unknown Verified 06/17/24 22:29 Codeine Allergy Unknown Unknown Uncoded 06/17/24 22:29 Codeine Phosphate Allergy Unknown Unknown Uncoded 06/17/24 22:29 Doxycycline Hyclate Allergy Unknown Unknown Uncoded 06/17/24 22:29 novolin n Allergy Unknown Unknown Uncoded 06/17/24 22:29 Review of Systems Constitutional: Constitutional: Reports no additional constitutional complaints, Denies chills, Denies fever(s) and Denies night sweats Eyes: Eyes: Reports no additional eye complaints, Denies blurry vision, Denies change in vision, Denies diplopia, Denies eye discharge, Denies loss of vision and Denies eye pain ENT: Denies dizziness Cardiovascular: Cardiovascular: Reports no additional cardiovascular complaints, Denies chest pain, Denies lightheadedness, Denies Loss of Consciousness and Denies dyspnea Respiratory: Respiratory: Reports no additional respiratory complaints and Denies dyspnea Gastrointestinal: Gastrointestinal: Reports no additional gastrointestinal complaints, Denies abdominal pain, Denies melena, Denies hematochezia, Denies change in bowel habits and Denies change in stool character Genitourinary: Genitourinary: Denies hematuria, Denies urinary frequency, Denies dysuria, Denies urinary incontinence, Denies urinary hesitancy and Denies urinary urgency Musculoskeletal: Musculoskeletal: Reports no additional musculoskeletal complaints, Denies numbness and Denies tingling Neurologic: Denies dizziness, Denies loss of vision, Denies numbness and Denies tingling Psychiatric: Psychiatric: Reports no additional psychiatric complaints Endocrine: Endocrine: Reports no additional endocrine complaints Hematologic/Lymphatic: Hematologic/Lymphatic: Reports no additional hematologic/lymphatic complaints Allergic/Immunologic: Allergic/Immunologic: Reports no additional allerg ic/immunologic complaints PMFSH Past Medical History Attestation statement: The following information was validated with the patient. Source: old records reviewed and nursing notes reviewed Medical History UTI (urinary tract infection) Diabetic foot ulcer Constipation Neuropathy Macular degeneration Prolapsed bladder Osteoporosis Toe amputee Glaucoma Osteopenia Lumbar compression fracture Diabetes Family History Family History Other No family history of coronary artery disease Social History Social History Household Members: Significant Other Housing: Condominium Do you presently have visiting nurse or other home services: Yes Alcohol intake: never Comment: resting Patient Tobacco Use Status: Never used Tobacco Smoked in Last 30 Days: No Second Hand Smoke Exposure: No Use of substances other than those prescribed or required for medical reasons: No Advance Directives: Yes Advance Directives Information Provided: No Advance Directives on File: No Do you have a plan to hurt others: No Plan service: No Current occupational status: disabled Physical Exam ED Vital Signs: Vital Signs - 24 hr 06/17/24 22:25 Temperature 98.2 F Pulse Rate 87 Respiratory Rate 16 Blood Pressure 133/59 L Pulse Oximetry 96 Oxygen Delivery Method Room Air BMI result Body Mass Index 1.2 Const General: cooperative, no acute distress, alert and awake Nutritional Appearance: well nourished Orientation/consciousness: patient oriented x3 Limitations: no limitations HENMT Head: Yes normal to inspection and Yes atraumatic Ears: hearing grossly normal bilaterally and external ears normal General nose exam: Normal external nose present, no nasal discharge noted and no epistaxis Face and sinus: Yes normal facial exam, No abrasion and No laceration Mouth: Normal oral and palatal mucosa present, no drooling and no muffled voice Eyes General: appearance normal, both eyes and all related structures Periorbital: periorbital findings normal Eyelids: Yes eyelids normal Conjunctivae: conjunctivae normal Pupils: Equal, round and reactive pupils present EOM: EOMs intact bilaterally Neck Neck: Yes normal visual inspection, Yes full ROM and Yes no lymphadenopathy Chest Chest palpation & inspection: normal inspection of the chest Resp Effort & Inspection: normal respiratory effort and able to speak in complete sentences GI Inspection: Yes normal to inspection Neuro General: patient oriented x3 and moves all extremities Cranial nerves: Yes Equal, round and reactive pupils present Cognition (Neuro): normal cognition Extrem General: Yes normal to inspection, Yes full ROM and Yes capillary refill normal Psych Appearance: grossly normal Mental Status: mental status grossly normal Affect: normal affect Attitude: cooperative Thought process: Normal thought process present Thought content: Normal thought content present Insight: Good insight present (Psych) Medical Decision Making Medical Decision Making MDM Narrative: Patient is an 83 year old assigned female at with a history of CHF presenting to the emergency department today, unable to care for herself. Patient's physical exam was unremarkable. I explained my physical exam findings to the patient. I answered all questions asked by the patient. Patient will remain in physician observation until a safe disposition is determined. Her and her partner have requested that the patient await in our care until he is discharged from the inpatient service and they go home together. She does not wish for placement. Differential Diagnosis Differential Diagnoses: The differential diagnosis associated with the presentation includes Unable to care for self Admission/Observation Consideration of admission/observation: Escalation of care including admission/observation considered Patient would have been admitted to the hospital had her clinical presentation warranted hospital admission. Discharge Plan Discharge Clinical Impression: Unable to care for self Patient Disposition: Still a Patient Prescriptions: No Action buspirone 5 mg tablet 5 mg PO BID@0900,1700 acetaminophen 325 mg tablet 650 mg PO Q6H PRN (Reason: Pain (Scale Score 1-3)) aspirin 81 mg tablet,delayed release (DR/EC) 81 mg PO DAILY@1200 bupropion HCl 100 mg tablet sustained-release 12 hr 100 mg PO DAILY alprazolam 0.5 mg tablet 0.5 mg PO QID mirtazapine 7.5 mg tablet 7.5 mg PO BEDTIME cholecalciferol (vitamin D3) 25 mcg (1,000 unit) Tablet 25 mcg PO DAILY insulin glargine [Lantus U-100 Insulin] 100 unit/mL solution subcut clopidogrel 75 mg tablet 75 mg PO DAILY bumetanide 1 mg tablet 1 mg PO BID metoprolol succinate 25 mg tablet extended release 24 hr 25 mg PO DAILY gentamicin 0.1 % ointment topical TID ezetimibe 10 mg tablet 10 mg PO DAILY losartan 25 mg tablet 25 mg PO DAILY insulin lispro [Admelog U-100 Insulin lispro] 100 unit/mL solution subcut ferrous sulfate 325 mg (65 mg iron) tablet 325 mg PO Q2D@0900 Print Language: Togolese
[2024-06-17 22:25] VITALS: BP 133/59; PULSE 87; RESP 16; TEMP 36.8; O2SAT 96
--- NOTE | 2024-06-17 23:31 | MHC.EDTECH ---
Pt assisted on and off commode. Pt back into bed, given gingerale and warm blankets. Call machuca within reach.
[2024-06-18] VITALS (7 sets, daily range): BP systolic 105–143; BP diastolic 35–90; PULSE 67–85; RESP 16; TEMP 36.2–36.9; O2SAT 95–98
--- NOTE | 2024-06-18 02:24 | PC.NURSE ---
Insulin dose reconciled per patient's and patient's verbal report report.
[2024-06-18 02:31] LABS: Glucose, Whole Blood 423 mg/dL (60-115)
[2024-06-18] MEDS: Insulin Lispro 100 UNIT/ML 3 ML VIAL SUBCUT ×8 (02:48→21:40)
[2024-06-18] MEDS: Metoprolol Succinate ER 25 MG TAB.ER.24H PO ×2 (02:49→21:39)
--- NOTE | 2024-06-18 04:00 | MHC.EDTECH ---
This tech took over care of patient at 0330am,patient is resting quietly,call machuca in reach
[2024-06-18 04:20] LABS: Glucose, Whole Blood 357 mg/dL (60-115)
--- NOTE | 2024-06-18 04:23 | MHC.EDTECH ---
POC taken and is 357,Susy BERMUDEZ made aware
--- NOTE | 2024-06-18 06:21 | MHC.EDTECH ---
Patient got up with a 1 assist to the commode,patient urinated a large amount and had a small amount of soft brown stool.Patient was cleaned and repositioned in bed,call machuca in reach
[2024-06-18 07:11] LABS: Glucose, Whole Blood 346 mg/dL (60-115)
--- NOTE | 2024-06-18 08:05 | MHC.EDTECH ---
This tech assisted the pt to the bedside commode. Pt had a large bowel movement. Pt is back into bed, call machuca in place.
[2024-06-18] MEDS: busPIRone HCl 5 MG TABLET PO ×2 (09:38→18:25)
[2024-06-18] MEDS: Bumetanide 1 MG TABLET PO ×2 (09:38→22:28)
[2024-06-18] MEDS: Insulin Glargine,Hum.rec.anlog 100 UNIT/ML 10 ML VIAL SUBCUT (09:38)
[2024-06-18] MEDS: Clopidogrel Bisulfate 75 MG TABLET PO (09:38)
[2024-06-18] MEDS: Ferrous Sulfate 324 MG TABLET.DR PO (09:38)
[2024-06-18] MEDS: Ezetimibe 10 MG TABLET PO (09:38)
[2024-06-18] MEDS: Cholecalciferol (Vitamin D3) 25 MCG TABLET PO (09:38)
[2024-06-18] MEDS: ALPRAZolam 0.5 MG TABLET PO ×4 (09:39→21:40)
[2024-06-18 11:39] LABS: Glucose, Whole Blood 491 mg/dL (60-115)
[2024-06-18] MEDS: Losartan Potassium 25 MG TABLET PO (12:33)
[2024-06-18] MEDS: Aspirin Enteric Coated 81 MG TABLET.DR PO (12:33)
--- NOTE | 2024-06-18 12:38 | PC.NURSE ---
Patient's POC 491, per pt's specific SC due for 4 units insulin, provider Mara gu.
--- NOTE | 2024-06-18 13:00 | MHC.CM.PN ---
CM RECEIVED CM ED CONSULT. MET WITH PT AND SPOUSE AT BEDSIDE (SPOUSE IS AN ADMITTED PT) PER PT/SPOUSE, PT IS UNABLE TO RETURN HOME WITHOUT HER SPOUSE HE IS HER CAREGIVER AND HAS NO ONE ELSE TO ASSIST. HER SPOUSE ALSO ENDORSES THIS. PT ALSO IS DECLINING PLACEMENT. PT HAS A COPY OF HCP AT HOME. PCP DR. DONATO ROBISON AT [facility]. CM WILL CONTINUE TO FOLLOW FOR A PLAN.
--- NOTE | 2024-06-18 14:29 | PC.NURSE ---
Patient to go to overflow, RN to RN phone report given to Oksana, made aware of unusual POC Sliding Scale.
[2024-06-18 14:30] LABS: Glucose, Whole Blood 388 mg/dL (60-115)
--- NOTE | 2024-06-18 17:17 | PC.NURSE ---
neha able to stand and pivot to commode, voided and had bowel movement, linens changed due to some incontinence, patient changed into clean maricel, placed back onto clean stretcher, offering no complaints at this time
--- NOTE | 2024-06-18 20:05 | MHC.EDTECH ---
This tech assisted the pt to the bedaside commode. PT had a large bowel movement. Pt is back into bed, call machuca in place.
[2024-06-18 21:17] LABS: Glucose, Whole Blood 154 mg/dL (60-115)
[2024-06-18] MEDS: Mirtazapine 7.5 MG TABLET PO (21:39)
[2024-06-18] MEDS: Acetaminophen 325 MG TABLET 650 MG PO (21:44)
[2024-06-18 23:34] LABS: Glucose, Whole Blood 77 mg/dL (60-115)
[2024-06-19 00:48] LABS: Glucose, Whole Blood 139 mg/dL (60-115)
[2024-06-19 06:04] VITALS: BP 168/58; PULSE 74; RESP 16; TEMP 36.4; O2SAT 95
--- NOTE | 2024-06-19 06:09 | PC.NURSE ---
MD aware of morning blood pressure, slightly elevated for patient. no new orders.
[2024-06-19 07:41] LABS: Glucose, Whole Blood 308 mg/dL (60-115)
[2024-06-19] MEDS: Cholecalciferol (Vitamin D3) 25 MCG TABLET PO (09:01)
[2024-06-19] MEDS: busPIRone HCl 5 MG TABLET PO ×2 (09:02→16:19)
[2024-06-19] MEDS: ALPRAZolam 0.5 MG TABLET PO ×3 (09:02→21:27)
[2024-06-19] MEDS: Ezetimibe 10 MG TABLET PO (09:02)
[2024-06-19] MEDS: Clopidogrel Bisulfate 75 MG TABLET PO (09:02)
[2024-06-19] MEDS: Insulin Glargine,Hum.rec.anlog 100 UNIT/ML 10 ML VIAL SUBCUT ×2 (09:03→21:28)
[2024-06-19] MEDS: Insulin Lispro 100 UNIT/ML 3 ML VIAL SUBCUT ×3 (09:03→17:11)
[2024-06-19] MEDS: Bumetanide 1 MG TABLET PO ×2 (09:31→16:17)
--- NOTE | 2024-06-19 10:19 | PC.NURSE ---
Alert with periods of forgetfulness. Ate well for breakfast. Boyfriend at bedside aware of blood sugar, patient and boyfriend stating they only want 2.5 units of insulin. Po meds as ordered, aware plan is to d/c home today
[2024-06-19 11:56] LABS: Glucose, Whole Blood 538 mg/dL (60-115)
[2024-06-19 12:30] VITALS: BP 119/58; PULSE 75; RESP 20; TEMP 36.5; O2SAT 99
[2024-06-19] MEDS: Aspirin Enteric Coated 81 MG TABLET.DR PO (12:44)
--- NOTE | 2024-06-19 12:51 | PHA.MEDREC ---
Pharmacy Consult ? Medication Reconciliation Pharmacy has completed the medication reconciliation. Reviewed med rec completed by nursing and all looked well. I went and confirmed with patient to make sure dosing and how they are taking their medications matched and some things were updated to the patient preference on how they do their mediations. The patient was able to confirm they are taking their Alprazolam 0.5mg tab TID With Food. She takes Vitamin D-3 25mcg and Ferrous Sulfate 325mg every 48 hours and states she took them last Tuesday night and was given another dose of those medications yesterday in the hospital. The patient confirmed her Lantus and sates she does 5 units in the morning and she said her doctor confirmed another dose of 2.5-3 units at night. The patient states she is on Admelog and states she is now using it as a sliding scale and she injects it about 15 minutes before Breakfast, Lunch and Dinner.
--- NOTE | 2024-06-19 13:01 | PHA.MEDREC ---
Addendum entered by Brendan Chester 06/19/24 13:11: [facility] verified Original Note: Pharmacy Consult ? Medication Reconciliation Pharmacy has completed the medication reconciliation. Reviewed med rec completed by nursing and all looked well. I went and confirmed with patient to make sure dosing and how they are taking their medications matched and some things were updated to the patient preference on how they do their mediations. The patient was able to confirm they are taking their Alprazolam 0.5mg tab TID With Food. She takes Vitamin D-3 25mcg and Ferrous Sulfate 325mg every 48 hours and states she took them last Tuesday night and was given another dose of those medications yesterday in the hospital. The patient confirmed her Lantus insulin and sates she does 5 units in the morning and she said her doctor confirmed another dose of 2.5-3 units at night. The patient states she is on Admelog and states she is now using it as a sliding scale and she injects it about 15 minutes before Breakfast, Lunch and Dinner. Patient has a family member at bedside who is currently a patient with us as well and they were able to help confirm the last time the patient took the medications was Tuesday morning 06/17 for her morning medications and 06/16 she took her night medications last.
--- NOTE | 2024-06-19 13:05 | MHC.CM.PN ---
This radio news writer placed call to pt's HCP/daughter who lives in [place]. She is going to attempted to fly out tomorrow to pick Mom up. She was provided w/ ER CM contact info for details of plan. She confirms there are no supports in this area.
--- NOTE | 2024-06-19 13:19 | PC.NURSE ---
Patient out of bed to bedside commode. Peripad changed. Pt sitting with significant other, who is a patient in the next room. Pt's family member (Indigo) called back stating that Case Management/Social Work had tried to reach her earlier. Message sent to Leyda Bolaños RN to follow up with Indigo.
[2024-06-19] MEDS: Losartan Potassium 25 MG TABLET PO (13:32)
[2024-06-19 13:45] LABS: Glucose, Whole Blood 574 mg/dL (60-115)
--- NOTE | 2024-06-19 13:53 | MHC.CM.ED ---
Received notification from LARA Mendoza that patient's daughter, Indigo requesting a telephone call to [phone]. Attempted to call Indigo. Left message returning telephone call. Continue to monitor for d/c needs.
--- NOTE | 2024-06-19 14:04 | PC.NURSE ---
Provider aware of BS of 574
[2024-06-19 14:29] LABS: MANUAL DIFF FLAG NO
[2024-06-19] MEDS: 0.9 % Sodium Chloride 1,000 ML 999 ML IV (14:33)
[2024-06-19 14:35] LABS: Basophils Absolute Auto 0.1 X10*3/uL (0.0-0.2); Basophils Percent Auto 0.9 % (0-2); Eosinophils Absolute Auto 0.2 X10*3/uL (0.0-0.4); Eosinophils Percent Auto 2.7 % (0-4); Hematocrit 39.2 % (37.0-47.0); Hemoglobin 12.5 g/dl (12.0-16.0); Imm Gran Abs Auto 0.02 X10*3/uL (0.00-0.03); Imm Gran Pct Auto 0.4 % (0.0-0.4); Lymphocytes Absolute Auto 1.1 X10*3/uL (1.2-4.9); Lymphocytes Percent Auto 18.8 % (20-40); Mean Corpuscular HGB Conc 31.9 g/dl (31.0-35.0); Mean Corpuscular Hemoglobin 30.1 pg (27.0-33.0); Mean Corpuscular Volume 94.5 fL (80.0-98.0); Mean Platelet Volume 10.2 fL (9.4-12.3); Monocytes Absolute Auto 0.5 X10*3/uL (0.1-1.2); Monocytes Percent Auto 9.5 % (2-11); Neutrophils Absolute Auto 3.8 x10*3/uL (2.0-8.3); Neutrophils Percent Auto 67.7 % (45-73); Platelet Count 194 X10*3/uL (160-400); Red Blood Count 4.15 X10*6/uL (4.20-5.50); Red Cell Distribution Width 11.5 % (11.0-16.0); White Blood Count 5.6 X10*3/uL (4.8-10.8)
[2024-06-19 14:52] LABS: Alanine Aminotransferase 29 U/L (0-31); Albumin Level 4.1 g/dL (3.5-5.0); Alkaline Phosphatase 167 U/L (39-117); Anion Gap 14 (12-20); Aspartate Amino Transferase 39 U/L (5-31); Bilirubin Total 0.4 mg/dL (0.0-1.0); Blood Urea Nitrogen 53 mg/dL (9-16); Calcium 9.6 mg/dL (8.4-10.2); Carbon Dioxide 33 mmol/L (22-29); Chloride 92 mmol/L (96-108); Creatinine Clr Calc Pharmacy 1.3; Estimated Glomerular Filt Rate 32; Glucose Random 552 mg/dL (60-115); Lipase 16 U/L (8-78); Magnesium 2.4 mg/dL (1.6-2.6); Sodium 135 mmol/L (135-145); Total Protein 7.5 g/dL (6.5-8.0)
--- NOTE | 2024-06-19 14:53 | PC.NURSE ---
Lab called Main ED and spoke with this RN report Critical Result: Glucose 552 at 14:51. Result reported to JONATHAN Robert and Alessia Pa RN.
[2024-06-19 15:23] LABS: Beta-Hydroxybutyrate 0.12 mmol/L (0.02-0.27)
[2024-06-19 15:57] LABS: VBG Base Excess 7.6 mmol/L; VBG HCO3 34 mmol/L (22-26); VBG pCO2 57 mmHg; VBG pH 7.38 (7.32-7.43); VBG pO2 58 mmHg
[2024-06-19 16:04] LABS: Osmolality, Serum 317 mosm/kg (281-305)
[2024-06-19 16:21] LABS: Venous Blood Gas Refer to POC result
[2024-06-19 16:24] LABS: Appearance Urine Clear; Color Urine Yellow; Glucose Urine UA >=1000 mg/dL (Negative); Leukocyte Esterase Urine Negative (Negative); Nitrite Urine Negative (Negative); Specific Gravity - Urine 1.015 (1.005-1.025); UMIC TRIGGER UACC YES; Urine Blood Negative (Negative); Urine Ketones Negative (Negative); Urine Protein Negative (Neg-Trace)
--- NOTE | 2024-06-19 16:29 | PC.NURSE ---
provider aware of BS, verbal order to give 1 liters NS
[2024-06-19 16:38] LABS: Glucose, Whole Blood 354 mg/dL (60-115)
--- NOTE | 2024-06-19 16:49 | PC.NURSE ---
Patient refused IV fluids stating it will cause her to retain fluid.
--- NOTE | 2024-06-19 17:13 | PC.NURSE ---
BS 354, patient stating she only wants 3 units.
[2024-06-19 17:55] LABS: Bacteria Urine None Seen (None Seen); Hyaline Casts Urine 0-2 /LPF (0-2); Squamous Epithelial Cell Urine 0-2 /HPF (0-2); WBC Urine 0-5 /HPF (0-5)
[2024-06-19 17:56] LABS: RBC Urine 0-2 /HPF (0-2)
[2024-06-19 18:21] LABS: Glucose, Whole Blood 408 mg/dL (60-115)
--- NOTE | 2024-06-19 18:22 | ED_ITS ---
HPI - General Adult General Chief complaint: General Medical Stated complaint: unable to take care of self Time Seen by Provider: 06/17/24 21:55 Source: patient Mode of arrival: wheelchair Limitations: no limitations History of Present Illness Relieving factors: none Exacerbating factors: none Associated symptoms: denies other symptoms Treatments prior to arrival: none Related Data Home Medications ?Medication ?Instructions ?Recorded ?Confirmed acetaminophen 325 mg tablet 325 mg PO Q6H PRN Pain (Scale 01/07/21 06/19/24 Score 1-3) alprazolam 0.5 mg tablet 0.5 mg PO QID 01/07/21 06/19/24 aspirin 81 mg tablet,delayed 81 mg PO DAILY@1200 01/07/21 06/19/24 release bupropion HCl 100 mg tablet,12 hr 100 mg PO DAILY 01/07/21 06/19/24 sustained-release buspirone 5 mg tablet 5 mg PO BID@0900,1700 01/07/21 06/19/24 mirtazapine 7.5 mg tablet 7.5 mg PO BEDTIME 01/07/21 06/19/24 ferrous sulfate 325 mg (65 mg 325 mg PO Q48H 12/18/21 06/19/24 iron) tablet cholecalciferol (vitamin D3) 25 25 mcg PO Q48H 07/23/22 06/19/24 mcg (1,000 unit) tablet bumetanide 1 mg tablet 1 mg PO BID 06/17/24 06/19/24 clopidogrel 75 mg tablet 75 mg PO DAILY 06/17/24 06/19/24 ezetimibe 10 mg tablet 10 mg PO BEDTIME 06/17/24 06/19/24 gentamicin 0.1 % topical ointment 1 appl topical TID 06/17/24 06/19/24 insulin glargine 100 unit/mL 5 unit subcut DAILY 06/17/24 06/19/24 subcutaneous solution (Lantus U-100 Insulin) insulin lispro 100 unit/mL 2 unit subcut TID 06/17/24 06/19/24 subcutaneous solution (Admelog U-100 Insulin lispro) losartan 25 mg tablet 25 mg PO DAILY 06/17/24 06/19/24 metoprolol succinate 25 mg 25 mg PO BEDTIME 06/17/24 06/19/24 tablet,extended release 24 hr insulin glargine 100 unit/mL 2.5 - 3 unit subcut BEDTIME 06/19/24 06/19/24 subcutaneous solution (Lantus U-100 Insulin) netarsudil 0.02 %-latanoprost 1 drp ophthalmic (eye) BEDTIME 06/19/24 06/19/24 0.005 % eye drops (Rocklatan) Allergies Allergy/AdvReac Type Severity Reaction Status Date / Time citalopram [Celexa] Allergy Unknown Unknown Verified 06/17/24 22:29 codeine [Codeine] Allergy Unknown ABLE TO Verified 06/17/24 22:29 TAKE IN VERY SMALL AMOUNTS, DIZZY WITH LARGE AMTS doxycycline Allergy Unknown Unknown Verified 06/17/24 22:29 Codeine Allergy Unknown Unknown Uncoded 06/17/24 22:29 Codeine Phosphate Allergy Unknown Unknown Uncoded 06/17/24 22:29 Doxycycline Hyclate Allergy Unknown Unknown Uncoded 06/17/24 22:29 novolin n Allergy Unknown Unknown Uncoded 06/17/24 22:29 [facility] Past Medical History Medical History UTI (urinary tract infection) Diabetic foot ulcer Constipation Neuropathy Macular degeneration Prolapsed bladder Osteoporosis Toe amputee Glaucoma Osteopenia Lumbar compression fracture Diabetes Family History Family History Other No family history of coronary artery disease Social History Social History Household Members: Significant [facility] Do you presently have visiting nurse or other home services: Yes Alcohol intake: never Comment: resting Patient Tobacco Use Status: Never used Tobacco Smoked in Last 30 Days: No Second Hand Smoke Exposure: No Use of substances other than those prescribed or required for medical reasons: No Advance Directives: Yes Advance Directives Information Provided: No Advance Directives on File: No Do you have a plan to hurt others: No Plan service: No Current occupational status: disabled Physical Exam ED Vital Signs: Vital Signs - 24 hr 06/19/24 20:26 06/20/24 05:20 06/20/24 07:59 Temperature 98.7 F 98.4 F 97.9 F Pulse Rate 85 62 70 Respiratory Rate 16 14 18 Blood Pressure 111/53 L 147/56 H 130/83 Pulse Oximetry 93 97 97 Oxygen Delivery Method Room Air Room Air Room Air 06/20/24 12:00 06/20/24 14:14 06/20/24 14:15 Temperature 98.5 F 98.5 F Pulse Rate 73 80 80 Respiratory Rate 20 16 16 Blood Pressure 139/74 104/55 L 104/55 L Pulse Oximetry 100 98 98 Oxygen Delivery Method Room Air Room Air Room Air BMI result Body Mass Index 1.2 Medications Administered Generic Name Dose Route Start Last Admin Trade Name Freq PRN Reason Stop Dose Admin Acetaminophen 650 mg 06/17/24 22:42 06/19/24 21:32 Acetaminophen 325 Mg Tablet PO 650 mg Q6H PRN Administration Pain (Scale Score 1-3) Alprazolam 0.5 mg 06/18/24 09:00 06/20/24 17:02 Alprazolam 0.5 Mg Tablet PO 0.5 mg QID NELIDA Administration Aspirin 81 mg 06/18/24 12:00 06/20/24 12:00 Aspirin Enteric Coated 81 Mg Tablet. PO 81 mg DAILY@1200 NELIDA Administration Bumetanide 1 mg 06/18/24 09:00 06/20/24 08:23 Bumetanide 1 Mg Tablet PO 1 mg BID NELIDA Administration Protocol Buspirone HCl 5 mg 06/18/24 09:00 06/20/24 17:02 Buspirone Hcl 5 Mg Tablet PO 5 mg BID@0900,1700 NELIDA Administration Clopidogrel Bisulfate 75 mg 06/18/24 09:00 06/20/24 08:23 Clopidogrel Bisulfate 75 Mg Tablet PO 75 mg DAILY NELIDA Administration Ezetimibe 10 mg 06/18/24 09:00 06/20/24 08:23 Ezetimibe 10 Mg Tablet PO 10 mg DAILY NELIDA Administration Ferrous Sulfate 324 mg 06/18/24 09:00 06/20/24 08:23 Ferrous Sulfate 324 Mg Tablet. PO 324 mg Q2D@0900 [facility] Administration Insulin Glargine 5 unit 06/18/24 09:00 06/20/24 08:23 Insulin Glargine,Hum.Rec.Anlog 100 Unit/Ml 10 Ml Vial SUBCUT 5 unit DAILY NELIDA Administration Insulin Human Lispro 0 unit 06/18/24 11:30 06/20/24 16:56 Insulin Lispro 100 Unit/Ml 3 Ml Vial [facility] Protocol Insulin Human Lispro 1 unit 06/18/24 11:30 06/20/24 17:07 Insulin Lispro 100 Unit/Ml 3 Ml Vial SUBCUT Not [facility] Losartan Potassium 25 mg 06/18/24 12:00 06/20/24 14:19 Losartan Potassium 25 Mg Tablet PO 25 mg DAILY@1200 [facility] Administration Protocol Metoprolol Succinate 25 mg 06/18/24 02:15 06/19/24 21:28 Metoprolol Succinate Er 25 Mg Tab.Er.24h PO 25 mg BEDTIME [facility] Administration Protocol Mirtazapine 7.5 mg 06/18/24 21:00 06/19/24 21:28 Mirtazapine 7.5 Mg Tablet PO 7.5 mg BEDTIME [facility] Administration Vitamin D 25 mcg 06/18/24 09:00 06/20/24 08:23 Cholecalciferol (Vitamin D3) 25 Mcg Tablet PO 25 mcg DAILY [facility] Administration Discontinued Medications Generic Name Dose Route Start Last Admin Trade Name Freq PRN Reason Stop Dose Admin Sodium Chloride 1,000 mls @ 999 mls/hr 06/19/24 14:45 06/19/24 15:57 Ns IV 06/19/24 15:45 Infused .Q1H1M [facility] Infusion Sodium Chloride 1,000 mls @ 999 mls/hr 06/19/24 16:30 06/19/24 16:48 Ns IV 06/19/24 17:30 Not Given .Q1H1M [facility] Insulin Glargine 3 unit 06/19/24 20:57 06/19/24 21:28 Insulin Glargine,Hum.Rec.Anlog 100 Unit/Ml 10 Ml Vial SUBCUT 06/19/24 20:58 2.5 unit BEDTIME ONE Administration Insulin Human Lispro 2 unit 06/18/24 02:34 06/18/24 02:48 Insulin Lispro 100 Unit/Ml 3 Ml Vial SUBCUT 06/18/24 02:35 2 unit ONCE ONE Administration Insulin Human Lispro 3 unit 06/18/24 07:36 06/18/24 07:54 Insulin Lispro 100 Unit/Ml 3 Ml Vial SUBCUT 06/18/24 07:37 3 unit ONCE ONE Administration Medical Decision Making Lab Data 06/19/24 14:24 06/19/24 14:24 Labs: Lab Results 06/18/24 06/18/24 06/18/24 Range/Units 02: 04:15 07:06 WBC (4.8-10.8) X10*3/uL RBC (4.20-5.50) X10*6/uL Hgb (12.0-16.0) g/dl Hct (37.0-47.0) % MCV (80.0-98.0) fL MCH (27.0-33.0) pg MCHC (31.0-35.0) g/dl RDW (11.0-16.0) % Plt Count (160-400) X10*3/uL MPV (9.4-12.3) fL Immature Gran % (Auto) (0.0-0.4) % Neut % (Auto) (45-73) % Lymph % (Auto) (20-40) % [place] % (Auto) (2-11) % Eos % (Auto) (0-4) % Baso % (Auto) (0-2) % Lymph # (Auto) (1.2-4.9) X10*3/uL [place] # (Auto) (0.1-1.2) X10*3/uL Eos # (Auto) (0.0-0.4) X10*3/uL Baso # (Auto) (0.0-0.2) X10*3/uL Abs Immat Gran (auto) (0.00-0.03) X10*3/uL Absolute Neuts (auto) (2.0-8.3) x10*3/uL Absolute Nucleated RBC (0.0-0.012) X10*3/uL Nucleated RBC % (auto) (0.0-0.2) /100WBC VBG pH (7.32-7.43) VBG pCO2 mmHg VBG pO2 mmHg VBG HCO3 (22-26) mmol/L VBG O2 Saturation % VBG Base Excess mmol/L Sodium (135-145) mmol/L Potassium (3.3-5.1) mmol/L Chloride (96-108) mmol/L Carbon Dioxide (22-29) mmol/L Anion Gap (12-20) BUN (9-16) mg/dL Creatinine (0.5-1.4) mg/dL Estim Creat Clear Calc Estimated GFR POC Glucose 423 H* 357 H* 346 H (60-115) mg/dL Random Glucose (60-115) mg/dL Osmolality (281-305) mosm/kg Calcium (8.4-10.2) mg/dL Magnesium (1.6-2.6) mg/dL Total Bilirubin (0.0-1.0) mg/dL AST (5-31) U/L ALT (0-31) U/L Alkaline Phosphatase (39-117) U/L Total Protein (6.5-8.0) g/dL Albumin (3.5-5.0) g/dL Lipase (8-78) U/L Beta-Hydroxybutyrate (0.02-0.27) mmol/L Urine Color Urine Appearance Urine pH (5.0-9.0) Ur Specific [place] (1.005-1.025) Urine Protein (Neg-Trace) mg/dL Urine Glucose (UA) (Negative) mg/dL Urine Ketones (Negative) mg/dL Urine Blood (Negative) Urine Nitrite (Negative) Ur Leukocyte Esterase (Negative) Urine RBC (0-2) /HPF Urine WBC (0-5) /HPF Ur Squamous Epith Cells (0-2) /HPF Urine Bacteria (None Seen) Hyaline Casts (0-2) /LPF 06/18/24 06/18/24 06/18/24 Range/Units 11:35 14:26 21:13 WBC (4.8-10.8) X10*3/uL RBC (4.20-5.50) X10*6/uL Hgb (12.0-16.0) g/dl Hct (37.0-47.0) % MCV (80.0-98.0) fL MCH (27.0-33.0) pg MCHC (31.0-35.0) g/dl RDW (11.0-16.0) % Plt Count (160-400) X10*3/uL MPV (9.4-12.3) fL Immature Gran % (Auto) (0.0-0.4) % Neut % (Auto) (45-73) % Lymph % (Auto) (20-40) % [place] % (Auto) (2-11) % Eos % (Auto) (0-4) % Baso % (Auto) (0-2) % Lymph # (Auto) (1.2-4.9) X10*3/uL [place] # (Auto) (0.1-1.2) X10*3/uL Eos # (Auto) (0.0-0.4) X10*3/uL Baso # (Auto) (0.0-0.2) X10*3/uL Abs Immat Gran (auto) (0.00-0.03) X10*3/uL Absolute Neuts (auto) (2.0-8.3) x10*3/uL Absolute Nucleated RBC (0.0-0.012) X10*3/uL Nucleated RBC % (auto) (0.0-0.2) /100WBC VBG pH (7.32-7.43) VBG pCO2 mmHg VBG pO2 mmHg VBG HCO3 (22-26) mmol/L VBG O2 Saturation % VBG Base Excess mmol/L Sodium (135-145) mmol/L Potassium (3.3-5.1) mmol/L Chloride (96-108) mmol/L Carbon Dioxide (22-29) mmol/L Anion Gap (12-20) BUN (9-16) mg/dL Creatinine (0.5-1.4) mg/dL Estim Creat Clear Calc Estimated GFR POC Glucose 491 H* 388 H* 154 H (60-115) mg/dL Random Glucose (60-115) mg/dL Osmolality (281-305) mosm/kg Calcium (8.4-10.2) mg/dL Magnesium (1.6-2.6) mg/dL Total Bilirubin (0.0-1.0) mg/dL AST (5-31) U/L ALT (0-31) U/L Alkaline Phosphatase (39-117) U/L Total Protein (6.5-8.0) g/dL Albumin (3.5-5.0) g/dL Lipase (8-78) U/L Beta-Hydroxybutyrate (0.02-0.27) mmol/L Urine Color Urine Appearance Urine pH (5.0-9.0) Ur Specific [place] (1.005-1.025) Urine Protein (Neg-Trace) mg/dL Urine Glucose (UA) (Negative) mg/dL Urine Ketones (Negative) mg/dL Urine Blood (Negative) Urine Nitrite (Negative) Ur Leukocyte Esterase (Negative) Urine RBC (0-2) /HPF Urine WBC (0-5) /HPF Ur Squamous Epith Cells (0-2) /HPF Urine Bacteria (None Seen) Hyaline Casts (0-2) /LPF 06/18/24 06/19/24 06/19/24 Range/Units 23:29 00:44 07:38 WBC (4.8-10.8) X10*3/uL RBC (4.20-5.50) X10*6/uL Hgb (12.0-16.0) g/dl Hct (37.0-47.0) % MCV (80.0-98.0) fL MCH (27.0-33.0) pg MCHC (31.0-35.0) g/dl RDW (11.0-16.0) % Plt Count (160-400) X10*3/uL MPV (9.4-12.3) fL Immature Gran % (Auto) (0.0-0.4) % Neut % (Auto) (45-73) % Lymph % (Auto) (20-40) % [place] % (Auto) (2-11) % Eos % (Auto) (0-4) % Baso % (Auto) (0-2) % Lymph # (Auto) (1.2-4.9) X10*3/uL [place] # (Auto) (0.1-1.2) X10*3/uL Eos # (Auto) (0.0-0.4) X10*3/uL Baso # (Auto) (0.0-0.2) X10*3/uL Abs Immat Gran (auto) (0.00-0.03) X10*3/uL Absolute Neuts (auto) (2.0-8.3) x10*3/uL Absolute Nucleated RBC (0.0-0.012) X10*3/uL Nucleated RBC % (auto) (0.0-0.2) /100WBC VBG pH (7.32-7.43) VBG pCO2 mmHg VBG pO2 mmHg VBG HCO3 (22-26) mmol/L VBG O2 Saturation % VBG Base Excess mmol/L Sodium (135-145) mmol/L Potassium (3.3-5.1) mmol/L Chloride (96-108) mmol/L Carbon Dioxide (22-29) mmol/L Anion Gap (12-20) BUN (9-16) mg/dL Creatinine (0.5-1.4) mg/dL Estim Creat Clear Calc Estimated GFR POC Glucose 77 139 H 308 H (60-115) mg/dL Random Glucose (60-115) mg/dL Osmolality (281-305) mosm/kg Calcium (8.4-10.2) mg/dL Magnesium (1.6-2.6) mg/dL Total Bilirubin (0.0-1.0) mg/dL AST (5-31) U/L ALT (0-31) U/L Alkaline Phosphatase (39-117) U/L Total Protein (6.5-8.0) g/dL Albumin (3.5-5.0) g/dL Lipase (8-78) U/L Beta-Hydroxybutyrate (0.02-0.27) mmol/L Urine Color Urine Appearance Urine pH (5.0-9.0) Ur Specific [place] (1.005-1.025) Urine Protein (Neg-Trace) mg/dL Urine Glucose (UA) (Negative) mg/dL Urine Ketones (Negative) mg/dL Urine Blood (Negative) Urine Nitrite (Negative) Ur Leukocyte Esterase (Negative) Urine RBC (0-2) /HPF Urine WBC (0-5) /HPF Ur Squamous Epith Cells (0-2) /HPF Urine Bacteria (None Seen) Hyaline Casts (0-2) /LPF 06/19/24 06/19/24 06/19/24 Range/Units 11:52 13:42 14:24 WBC 5.6 (4.8-10.8) X10*3/uL RBC 4.15 L D (4.20-5.50) X10*6/uL Hgb 12.5 D (12.0-16.0) g/dl Hct 39.2 D (37.0-47.0) % MCV 94.5 (80.0-98.0) fL MCH 30.1 (27.0-33.0) pg MCHC 31.9 (31.0-35.0) g/dl RDW 11.5 (11.0-16.0) % Plt Count 194 (160-400) X10*3/uL MPV 10.2 (9.4-12.3) fL Immature Gran % (Auto) 0.4 (0.0-0.4) % Neut % (Auto) 67.7 (45-73) % Lymph % (Auto) 18.8 L (20-40) % [place] % (Auto) 9.5 (2-11) % Eos % (Auto) 2.7 (0-4) % Baso % (Auto) 0.9 (0-2) % Lymph # (Auto) 1.1 L (1.2-4.9) X10*3/uL [place] # (Auto) 0.5 (0.1-1.2) X10*3/uL Eos # (Auto) 0.2 (0.0-0.4) X10*3/uL Baso # (Auto) 0.1 (0.0-0.2) X10*3/uL Abs Immat Gran (auto) 0.02 (0.00-0.03) X10*3/uL Absolute Neuts (auto) 3.8 (2.0-8.3) x10*3/uL Absolute Nucleated RBC 0.000 (0.0-0.012) X10*3/uL Nucleated RBC % (auto) 0.0 (0.0-0.2) /100WBC VBG pH (7.32-7.43) VBG pCO2 mmHg VBG pO2 mmHg VBG HCO3 (22-26) mmol/L VBG O2 Saturation % VBG Base Excess mmol/L Sodium 135 (135-145) mmol/L Potassium 4.0 (3.3-5.1) mmol/L Chloride 92 L (96-108) mmol/L Carbon Dioxide 33 H (22-29) mmol/L Anion Gap 14 (12-20) BUN 53 H (9-16) mg/dL Creatinine 1.56 H (0.5-1.4) mg/dL Estim Creat Clear Calc 1.3 Estimated GFR 32 POC Glucose 538 H* 574 H* (60-115) mg/dL Random Glucose 552 H* (60-115) mg/dL Osmolality (281-305) mosm/kg Calcium 9.6 D (8.4-10.2) mg/dL Magnesium 2.4 (1.6-2.6) mg/dL Total Bilirubin 0.4 (0.0-1.0) mg/dL AST 39 H (5-31) U/L ALT 29 (0-31) U/L Alkaline Phosphatase 167 H (39-117) U/L Total Protein 7.5 (6.5-8.0) g/dL Albumin 4.1 (3.5-5.0) g/dL Lipase 16 (8-78) U/L Beta-Hydroxybutyrate 0.12 (0.02-0.27) mmol/L Urine Color Urine Appearance Urine pH (5.0-9.0) Ur Specific [place] (1.005-1.025) Urine Protein (Neg-Trace) mg/dL Urine Glucose (UA) (Negative) mg/dL Urine Ketones (Negative) mg/dL Urine Blood (Negative) Urine Nitrite (Negative) Ur Leukocyte Esterase (Negative) Urine RBC (0-2) /HPF Urine WBC (0-5) /HPF Ur Squamous Epith Cells (0-2) /HPF Urine Bacteria (None Seen) Hyaline Casts (0-2) /LPF 06/19/24 06/19/24 06/19/24 Range/Units 15:45 15:53 16:16 WBC (4.8-10.8) X10*3/uL RBC (4.20-5.50) X10*6/uL Hgb (12.0-16.0) g/dl Hct (37.0-47.0) % MCV (80.0-98.0) fL MCH (27.0-33.0) pg MCHC (31.0-35.0) g/dl RDW (11.0-16.0) % Plt Count (160-400) X10*3/uL MPV (9.4-12.3) fL Immature Gran % (Auto) (0.0-0.4) % Neut % (Auto) (45-73) % Lymph % (Auto) (20-40) % [place] % (Auto) (2-11) % Eos % (Auto) (0-4) % Baso % (Auto) (0-2) % Lymph # (Auto) (1.2-4.9) X10*3/uL [place] # (Auto) (0.1-1.2) X10*3/uL Eos # (Auto) (0.0-0.4) X10*3/uL Baso # (Auto) (0.0-0.2) X10*3/uL Abs Immat Gran (auto) (0.00-0.03) X10*3/uL Absolute Neuts (auto) (2.0-8.3) x10*3/uL Absolute Nucleated RBC (0.0-0.012) X10*3/uL Nucleated RBC % (auto) (0.0-0.2) /100WBC VBG pH 7.38 (7.32-7.43) VBG pCO2 57 mmHg VBG pO2 58 mmHg VBG HCO3 34 H (22-26) mmol/L VBG O2 Saturation 90.0 % VBG Base Excess 7.6 mmol/L Sodium (135-145) mmol/L Potassium (3.3-5.1) mmol/L Chloride (96-108) mmol/L Carbon Dioxide (22-29) mmol/L Anion Gap (12-20) BUN (9-16) mg/dL Creatinine (0.5-1.4) mg/dL Estim Creat Clear Calc Estimated GFR POC Glucose (60-115) mg/dL Random Glucose (60-115) mg/dL Osmolality 317 H (281-305) mosm/kg Calcium (8.4-10.2) mg/dL Magnesium (1.6-2.6) mg/dL Total Bilirubin (0.0-1.0) mg/dL AST (5-31) U/L ALT (0-31) U/L Alkaline Phosphatase (39-117) U/L Total Protein (6.5-8.0) g/dL Albumin (3.5-5.0) g/dL Lipase (8-78) U/L Beta-Hydroxybutyrate (0.02-0.27) mmol/L Urine Color Yellow Urine Appearance Clear Urine pH 6.0 (5.0-9.0) Ur Specific [place] 1.015 (1.005-1.025) Urine Protein Negative (Neg-Trace) mg/dL Urine Glucose (UA) >=1000 H (Negative) mg/dL Urine Ketones Negative (Negative) mg/dL Urine Blood Negative (Negative) Urine Nitrite Negative (Negative) Ur Leukocyte Esterase Negative (Negative) Urine RBC 0-2 (0-2) /HPF Urine WBC 0-5 (0-5) /HPF Ur Squamous Epith Cells 0-2 (0-2) /HPF Urine Bacteria None Seen (None Seen) Hyaline Casts 0-2 (0-2) /LPF 06/19/24 06/19/24 06/19/24 Range/Units 16:22 18:18 20:57 WBC (4.8-10.8) X10*3/uL RBC (4.20-5.50) X10*6/uL Hgb (12.0-16.0) g/dl Hct (37.0-47.0) % MCV (80.0-98.0) fL MCH (27.0-33.0) pg MCHC (31.0-35.0) g/dl RDW (11.0-16.0) % Plt Count (160-400) X10*3/uL MPV (9.4-12.3) fL Immature Gran % (Auto) (0.0-0.4) % Neut % (Auto) (45-73) % Lymph % (Auto) (20-40) % [place] % (Auto) (2-11) % Eos % (Auto) (0-4) % Baso % (Auto) (0-2) % Lymph # (Auto) (1.2-4.9) X10*3/uL [place] # (Auto) (0.1-1.2) X10*3/uL Eos # (Auto) (0.0-0.4) X10*3/uL Baso # (Auto) (0.0-0.2) X10*3/uL Abs Immat Gran (auto) (0.00-0.03) X10*3/uL Absolute Neuts (auto) (2.0-8.3) x10*3/uL Absolute Nucleated RBC (0.0-0.012) X10*3/uL Nucleated RBC % (auto) (0.0-0.2) /100WBC VBG pH (7.32-7.43) VBG pCO2 mmHg VBG pO2 mmHg VBG HCO3 (22-26) mmol/L VBG O2 Saturation % VBG Base Excess mmol/L Sodium (135-145) mmol/L Potassium (3.3-5.1) mmol/L Chloride (96-108) mmol/L Carbon Dioxide (22-29) mmol/L Anion Gap (12-20) BUN (9-16) mg/dL Creatinine (0.5-1.4) mg/dL Estim Creat Clear Calc Estimated GFR POC Glucose 354 H* 408 H* 250 H (60-115) mg/dL Random Glucose (60-115) mg/dL Osmolality (281-305) mosm/kg Calcium (8.4-10.2) mg/dL Magnesium (1.6-2.6) mg/dL Total Bilirubin (0.0-1.0) mg/dL AST (5-31) U/L ALT (0-31) U/L Alkaline Phosphatase (39-117) U/L Total Protein (6.5-8.0) g/dL Albumin (3.5-5.0) g/dL Lipase (8-78) U/L Beta-Hydroxybutyrate (0.02-0.27) mmol/L Urine Color Urine Appearance Urine pH (5.0-9.0) Ur Specific [place] (1.005-1.025) Urine Protein (Neg-Trace) mg/dL Urine Glucose (UA) (Negative) mg/dL Urine Ketones (Negative) mg/dL Urine Blood (Negative) Urine Nitrite (Negative) Ur Leukocyte Esterase (Negative) Urine RBC (0-2) /HPF Urine WBC (0-5) /HPF Ur Squamous Epith Cells (0-2) /HPF Urine Bacteria (None Seen) Hyaline Casts (0-2) /LPF 06/20/24 06/20/24 06/20/24 Range/Units 07:52 11:41 16:04 WBC (4.8-10.8) X10*3/uL RBC (4.20-5.50) X10*6/uL Hgb (12.0-16.0) g/dl Hct (37.0-47.0) % MCV (80.0-98.0) fL MCH (27.0-33.0) pg MCHC (31.0-35.0) g/dl RDW (11.0-16.0) % Plt Count (160-400) X10*3/uL MPV (9.4-12.3) fL Immature Gran % (Auto) (0.0-0.4) % Neut % (Auto) (45-73) % Lymph % (Auto) (20-40) % [place] % (Auto) (2-11) % Eos % (Auto) (0-4) % Baso % (Auto) (0-2) % Lymph # (Auto) (1.2-4.9) X10*3/uL [place] # (Auto) (0.1-1.2) X10*3/uL Eos # (Auto) (0.0-0.4) X10*3/uL Baso # (Auto) (0.0-0.2) X10*3/uL Abs Immat Gran (auto) (0.00-0.03) X10*3/uL Absolute Neuts (auto) (2.0-8.3) x10*3/uL Absolute Nucleated RBC (0.0-0.012) X10*3/uL Nucleated RBC % (auto) (0.0-0.2) /100WBC VBG pH (7.32-7.43) VBG pCO2 mmHg VBG pO2 mmHg VBG HCO3 (22-26) mmol/L VBG O2 Saturation % VBG Base Excess mmol/L Sodium (135-145) mmol/L Potassium (3.3-5.1) mmol/L Chloride (96-108) mmol/L Carbon Dioxide (22-29) mmol/L Anion Gap (12-20) BUN (9-16) mg/dL Creatinine (0.5-1.4) mg/dL Estim Creat Clear Calc Estimated GFR POC Glucose 233 H 274 H 342 H (60-115) mg/dL Random Glucose (60-115) mg/dL Osmolality (281-305) mosm/kg Calcium (8.4-10.2) mg/dL Magnesium (1.6-2.6) mg/dL Total Bilirubin (0.0-1.0) mg/dL AST (5-31) U/L ALT (0-31) U/L Alkaline Phosphatase (39-117) U/L Total Protein (6.5-8.0) g/dL Albumin (3.5-5.0) g/dL Lipase (8-78) U/L Beta-Hydroxybutyrate (0.02-0.27) mmol/L Urine Color Urine Appearance Urine pH (5.0-9.0) Ur Specific [place] (1.005-1.025) Urine Protein (Neg-Trace) mg/dL Urine Glucose (UA) (Negative) mg/dL Urine Ketones (Negative) mg/dL Urine Blood (Negative) Urine Nitrite (Negative) Ur Leukocyte Esterase (Negative) Urine RBC (0-2) /HPF Urine WBC (0-5) /HPF Ur Squamous Epith Cells (0-2) /HPF Urine Bacteria (None Seen) Hyaline Casts (0-2) /LPF Discharge Plan Discharge Clinical Impression: Unable to care for self Patient Disposition: Still a Patient Prescriptions: No Action buspirone 5 mg tablet 5 mg PO BID@0900,1700 acetaminophen 325 mg tablet 325 mg PO Q6H PRN (Reason: Pain (Scale Score 1-3)) aspirin 81 mg tablet,delayed release (DR/EC) 81 mg PO DAILY@1200 bupropion HCl 100 mg tablet sustained-release 12 hr 100 mg PO DAILY alprazolam 0.5 mg tablet 0.5 mg PO QID mirtazapine 7.5 mg tablet 7.5 mg PO BEDTIME cholecalciferol (vitamin D3) 25 mcg (1,000 unit) Tablet 25 mcg PO Q48H insulin glargine [Lantus U-100 Insulin] 100 unit/mL solution 5 unit subcut DAILY clopidogrel 75 mg tablet 75 mg PO DAILY bumetanide 1 mg tablet 1 mg PO BID metoprolol succinate 25 mg tablet extended release 24 hr 25 mg PO BEDTIME gentamicin 0.1 % ointment 1 appl topical TID ezetimibe 10 mg tablet 10 mg PO BEDTIME losartan 25 mg tablet 25 mg PO DAILY insulin lispro [Admelog U-100 Insulin lispro] 100 unit/mL solution 2 unit subcut TID Rx Instructions: before each meal [place] 0.02-0.005 % drops 1 drp ophthalmic (eye) BEDTIME insulin glargine [Lantus U-100 Insulin] 100 unit/mL solution 2.5 - 3 unit subcut BEDTIME ferrous sulfate 325 mg (65 mg iron) tablet 325 mg PO Q48H Print Language: Swedish
--- NOTE | 2024-06-19 18:30 | PC.NURSE ---
Provider notified of BS of 408 and patient stating she does not wants any fluids/ further doses of lispro tonight . Provider stating not to give any more doses of lispro tonight but to give lantus. Provider notified she will need to add HS dose of lantus for tonight.
[2024-06-19 20:26] VITALS: BP 111/53; PULSE 85; RESP 16; TEMP 37.1; O2SAT 93
[2024-06-19 21:00] LABS: Glucose, Whole Blood 250 mg/dL (60-115)
[2024-06-19] MEDS: Metoprolol Succinate ER 25 MG TAB.ER.24H PO (21:28)
[2024-06-19] MEDS: Mirtazapine 7.5 MG TABLET PO (21:28)
[2024-06-19] MEDS: Acetaminophen 325 MG TABLET 650 MG PO (21:32)
--- NOTE | 2024-06-19 21:53 | PC.NURSE ---
pt given PM meds, and a snack, readjusted in bed, friend at bedside
--- NOTE | 2024-06-19 23:14 | PC.NURSE ---
report given to Luz BERUMDEZ
[2024-06-20] VITALS (8 sets, daily range): BP systolic 90–147; BP diastolic 50–83; PULSE 62–84; RESP 14–20; TEMP 36.6–36.9; O2SAT 97–100
--- NOTE | 2024-06-20 05:56 | PC.NURSE ---
Pt sleeping throughout the night. VSS. No c/o overnight. Bed alarm on. Call machuca within reach.
[2024-06-20 07:55] LABS: Glucose, Whole Blood 233 mg/dL (60-115)
[2024-06-20] MEDS: Insulin Lispro 100 UNIT/ML 3 ML VIAL SUBCUT ×4 (08:02→16:56)
[2024-06-20] MEDS: Ezetimibe 10 MG TABLET PO (08:23)
[2024-06-20] MEDS: ALPRAZolam 0.5 MG TABLET PO ×3 (08:23→21:23)
[2024-06-20] MEDS: Bumetanide 1 MG TABLET PO ×2 (08:23→21:19)
[2024-06-20] MEDS: Ferrous Sulfate 324 MG TABLET.DR PO (08:23)
[2024-06-20] MEDS: Clopidogrel Bisulfate 75 MG TABLET PO (08:23)
[2024-06-20] MEDS: busPIRone HCl 5 MG TABLET PO ×2 (08:23→17:02)
[2024-06-20] MEDS: Insulin Glargine,Hum.rec.anlog 100 UNIT/ML 10 ML VIAL SUBCUT (08:23)
[2024-06-20] MEDS: Cholecalciferol (Vitamin D3) 25 MCG TABLET PO (08:23)
--- NOTE | 2024-06-20 08:26 | PC.NURSE ---
Pt. medicated per MAR. Eating breakfast tray at this time. Pt. offers no concerns or complaints at this time. Plan of care ongoing.
[2024-06-20 11:44] LABS: Glucose, Whole Blood 274 mg/dL (60-115)
[2024-06-20] MEDS: Aspirin Enteric Coated 81 MG TABLET.DR PO (12:00)
--- NOTE | 2024-06-20 12:02 | PC.NURSE ---
Given 3 total U of Insulin Lispro per two separate Insulin orders trying to mimic sliding scale
--- NOTE | 2024-06-20 12:07 | PC.NURSE ---
Pt. decided against taking Xanax - administration edited and med. wasted with Margaux Duggan RN.
--- NOTE | 2024-06-20 12:10 | PC.NURSE ---
Awaiting Losartan per pharmacy. Medication not stocked in [facility].
--- NOTE | 2024-06-20 13:48 | PC.NURSE ---
Still awaiting Losartan per pharmacy at this time.
[2024-06-20] MEDS: Losartan Potassium 25 MG TABLET PO (14:19)
--- NOTE | 2024-06-20 14:43 | MHC.CM.ED ---
Met with pt to discuss d/c plan. Pt continues to request staying [place] [facility] [place] her significant other/caregiver Michael has been discharged to home. Pt verbalized understanding that she does not have a medical reason for admission and would be boarding in the ED as a group home pt. ED CM read [employer] Beneficially Notice to pt in the presence of Michael - pt opted to remain group home stay and bill Medicare: pt also aware of her appeal rights should Medicare deny group home stay. Signed ABN will be uploaded to [facility]. ED CM to follow.
[2024-06-20 16:09] LABS: Glucose, Whole Blood 342 mg/dL (60-115)
--- NOTE | 2024-06-20 16:12 | PC.NURSE ---
Pt. requested that this RN check her blood sugar, because she felt as though it was low. POC checked and resulted as 342. Provider notified because dinner tray is not coming for some time to administer scheduled Lispro
--- NOTE | 2024-06-20 16:25 | PC.NURSE ---
Per PA, POC is OK to wait for meal
--- NOTE | 2024-06-20 18:01 | MHC.CM.ED ---
Pt given a copy of her signed ABN. Pt and significant other understand the ABN. Patient and her significant other are devoted to each other and have been together for many years. They live together in each others homes, spending time at each place. Most recently, the patient has been living in her S.O's home for the past 2 years. He cares for her. He is admitted and has a room. He has expressed his desire to stay with his S.O. in overflow and not be moved to the floor. Primary RN and ED charge aware. ED charge mad Beds aware. Pt S.O will remain in the overflow with her. CM did explain to them that this is a very unusual situation, as most couples do not stay in the hospital together, especially when one partner does not have a medical need to remain in the hospital. Therefore, this patient was given a ABN.
[2024-06-20 21:04] LABS: Glucose, Whole Blood 251 mg/dL (60-115)
[2024-06-20] MEDS: Metoprolol Succinate ER 25 MG TAB.ER.24H PO (21:23)
[2024-06-20] MEDS: Mirtazapine 7.5 MG TABLET PO (21:23)
[2024-06-21 05:51] VITALS: BP 131/60; PULSE 72; RESP 16; TEMP 37.1; O2SAT 95
--- NOTE | 2024-06-21 06:40 | MHC.EDTECH ---
Patient slept all night ,up to use bedside commode ,void ,clean underwear and pads given ,Pt back in bed ,vitals taken ,All safety measure in place .
[2024-06-21 07:49] LABS: Glucose, Whole Blood 360 mg/dL (60-115)
[2024-06-21] MEDS: Insulin Lispro 100 UNIT/ML 3 ML VIAL SUBCUT ×3 (09:38→18:08)
[2024-06-21] MEDS: ALPRAZolam 0.5 MG TABLET PO ×3 (09:41→21:14)
[2024-06-21 09:42] VITALS: BP 133/50
[2024-06-21] MEDS: Bumetanide 1 MG TABLET PO ×2 (09:42→21:15)
[2024-06-21] MEDS: Cholecalciferol (Vitamin D3) 25 MCG TABLET PO (09:46)
[2024-06-21] MEDS: Ezetimibe 10 MG TABLET PO (09:47)
[2024-06-21] MEDS: busPIRone HCl 5 MG TABLET PO ×2 (09:47→18:12)
[2024-06-21] MEDS: Insulin Glargine,Hum.rec.anlog 100 UNIT/ML 10 ML VIAL SUBCUT (09:48)
[2024-06-21] MEDS: Clopidogrel Bisulfate 75 MG TABLET PO (09:48)
[2024-06-21 11:38] LABS: Glucose, Whole Blood 502 mg/dL (60-115)
[2024-06-21] MEDS: Acetaminophen 325 MG TABLET 650 MG PO ×2 (13:32→21:13)
--- NOTE | 2024-06-21 13:39 | MHC.CM.ED ---
Patient remains in ER overflow. Patient's daughter, Indigo, aware patient has opted to stay in ER with the expectation that she will be billed if Medicare denies alf stay. Continue to monitor for d/c needs.
[2024-06-21 14:00] VITALS: RESP 17
[2024-06-21] MEDS: Aspirin Enteric Coated 81 MG TABLET.DR PO (15:29)
[2024-06-21 16:35] LABS: Glucose, Whole Blood 247 mg/dL (60-115)
[2024-06-21 17:14] VITALS: BP 100/63; PULSE 86; RESP 16; TEMP 36.7; O2SAT 99
--- NOTE | 2024-06-21 20:30 | PC.NURSE ---
Pt alert and anxious at times. Significantly more calm with her partner at bedside. noon Losartan not available. Discussed pt's meds with her at length and this RN thought pt was refusing med. Med now available and pt saying she will take med. Per pharmacy is ok to give. reached out to Kathy Aggarwal with response pending. oncoming RN aware.
[2024-06-21 20:42] LABS: Glucose, Whole Blood 109 mg/dL (60-115)
[2024-06-21 21:08] VITALS: BP 129/79; PULSE 77; RESP 16; O2SAT 97
[2024-06-21 21:14] VITALS: BP 129/72
[2024-06-21] MEDS: Losartan Potassium 25 MG TABLET PO (21:14)
[2024-06-21] MEDS: Metoprolol Succinate ER 25 MG TAB.ER.24H PO (21:14)
[2024-06-21] MEDS: Mirtazapine 7.5 MG TABLET PO (21:14)
--- NOTE | 2024-06-22 04:06 | PC.NURSE ---
Pt sleeping at the bedside. No apparent distress noted. Breaths are even and regular with equal chest rises. Monitoring is ongoing.
[2024-06-22 06:00] VITALS: BP 116/42; PULSE 72; RESP 16; TEMP 36.6; O2SAT 96
[2024-06-22 07:50] LABS: Glucose, Whole Blood 223 mg/dL (60-115)
[2024-06-22 08:47] VITALS: BP 122/78
[2024-06-22] MEDS: Bumetanide 1 MG TABLET PO (08:47)
[2024-06-22] MEDS: Clopidogrel Bisulfate 75 MG TABLET PO (08:56)
[2024-06-22] MEDS: ALPRAZolam 0.5 MG TABLET PO ×3 (08:56→21:07)
[2024-06-22] MEDS: Ferrous Sulfate 324 MG TABLET.DR PO (08:56)
[2024-06-22] MEDS: busPIRone HCl 5 MG TABLET PO ×2 (08:56→16:27)
[2024-06-22] MEDS: Cholecalciferol (Vitamin D3) 25 MCG TABLET PO (08:57)
[2024-06-22] MEDS: Ezetimibe 10 MG TABLET PO (08:57)
[2024-06-22] MEDS: Insulin Lispro 100 UNIT/ML 3 ML VIAL SUBCUT ×3 (08:58→16:50)
[2024-06-22] MEDS: Insulin Glargine,Hum.rec.anlog 100 UNIT/ML 10 ML VIAL SUBCUT ×2 (08:59→10:51)
--- NOTE | 2024-06-22 09:12 | PC.NURSE ---
this RN talked with PA about insulin orders on patient as the scales were not clear. Pa d/c sliding scales ordered and reordered scale, also increasing long acting from 5units to 10units daily
[2024-06-22 11:49] LABS: Glucose, Whole Blood 337 mg/dL (60-115)
[2024-06-22 12:09] VITALS: BP 92/48; PULSE 73; RESP 18; TEMP 37.6; O2SAT 97
[2024-06-22] MEDS: Aspirin Enteric Coated 81 MG TABLET.DR PO (12:39)
--- NOTE | 2024-06-22 12:47 | PC.NURSE ---
Pt refused xanax, stated she only takes it in the morning, 1700, and bedtime. Pharmacy notified.
[2024-06-22 13:55] VITALS: TEMP 37
[2024-06-22 15:54] LABS: Glucose, Whole Blood 197 mg/dL (60-115)
--- NOTE | 2024-06-22 17:04 | PC.NURSE ---
Pt A&O skin pwd respirations even unlabored. Offers no complaints. Up to bedside commode with walker and 1 assist. Dinner tray provided, consuming at this time.
[2024-06-22 17:26] LABS: Glucose, Whole Blood 190 mg/dL (60-115)
--- NOTE | 2024-06-22 19:02 | PC.NURSE ---
Report received from Gela BERMUDEZ, assume care of pt at this time
[2024-06-22 20:48] VITALS: BP 123/53; PULSE 78; RESP 18; TEMP 36.8; O2SAT 99
[2024-06-22 20:48] LABS: Glucose, Whole Blood 79 mg/dL (60-115)
[2024-06-22] MEDS: Mirtazapine 7.5 MG TABLET PO (21:08)
--- NOTE | 2024-06-22 22:10 | MHC.CM.ED ---
Patient's S.O. Jeancarlos Elias might be dischargesd tomorrow. Pt will d/c with him. Pt's S.O. states he will drive them both home at discharge. Pt has a transfer chair with her. She states she can get into his truck. They have no concerns about driving home. CM did offer transportation home if needed.
--- NOTE | 2024-06-22 23:23 | PC.NURSE ---
report given to Leticia BERMUDEZ
[2024-06-23 07:38] LABS: Glucose, Whole Blood 235 mg/dL (60-115)
[2024-06-23 08:00] VITALS: BP 132/82; PULSE 84; RESP 18; TEMP 36.6; O2SAT 96
[2024-06-23] MEDS: Insulin Lispro 100 UNIT/ML 3 ML VIAL SUBCUT ×2 (08:12→11:57)
[2024-06-23] MEDS: ALPRAZolam 0.5 MG TABLET PO (09:29)
[2024-06-23] MEDS: Clopidogrel Bisulfate 75 MG TABLET PO (09:32)
[2024-06-23] MEDS: Bumetanide 1 MG TABLET PO (09:33)
[2024-06-23] MEDS: Ezetimibe 10 MG TABLET PO (09:33)
[2024-06-23] MEDS: Cholecalciferol (Vitamin D3) 25 MCG TABLET PO (09:33)
[2024-06-23] MEDS: busPIRone HCl 5 MG TABLET PO (09:34)
[2024-06-23] MEDS: Insulin Glargine,Hum.rec.anlog 100 UNIT/ML 10 ML VIAL 10 UNIT SUBCUT (09:36)
--- NOTE | 2024-06-23 10:31 | PC.NURSE ---
Took report from off-going RN at 0700 hrs. Pt is a pleasant 83 y/o female who is here for help managing care while is also here for treatment. History is significant for dementia and a prolapsed bladder. Plan is for pt to discharge home with . All medications taken as prescribed and pt ate breakfast this am. Verbalizes needs appropriately. Pt requires assist of one for bedside commode. Will continue to monitor for any changes.
[2024-06-23] MEDS: BUPROPION HCL 100 MG 100 EACH PO (10:36)
[2024-06-23 11:32] LABS: Glucose, Whole Blood 270 mg/dL (60-115)
[2024-06-23] MEDS: Aspirin Enteric Coated 81 MG TABLET.DR PO (11:58)
[2024-06-23 13:25] VITALS: BP 117/60
[2024-06-23] MEDS: Losartan Potassium 25 MG TABLET PO (13:25)
[2024-06-23 14:00] VITALS: BP 127/51; PULSE 80; RESP 20; TEMP 37.2; O2SAT 97
[2024-06-23 14:20] VITALS: BP 127/51; PULSE 80; RESP 20; TEMP 37.2; O2SAT 97
== END 2024-06-23 15:07 | disposition home or self-care (01) ==
PROVIDERS: Physician Assistant Medical; Emergency Provider Emergency Medicine Emergency Medical Services; PCP Physician Assistant Medical
DX: E11.65 Type 2 diabetes mellitus with hyperglycemia (principal); Z79.4 Long term (current) use of insulin; Z74.2 Need for assistance at home and no other household member able to render care; Z79.899 Other long term (current) drug therapy
CPT/HCPCS: 36415; 80053; 81001; 82010; 82803; 82947; 83690; 83735; 83930; 85025; 99285